=== PATIENT | male | born 1950 | race Hispanic/Latino ===

== ENCOUNTER 2017-05-10 08:29 | Inpatient (IN) | payer MEDICARE, BC ==
[2017-05-10] MEDS ORDERED: Albuterol-Ipratrop 3 mg / 0.5 (3 ml) UD IH STA ×2 (08:47→11:33)
--- NOTE | 2017-05-10 08:47 | ED PDOC ---
Arrival/HPI - General Chief Complaint: Shortness Of Breath Time Seen by Provider: 05/10/17 08:30 Historian: Patient - History of Present Illness Narrative History of Present Illness (Text): 05/10/17 08:42 A 66 year old male, whose past medical history includes COPD on Lasix and hyperlipidemia, presents to the emergency department complaining of shortness of breath for the past 3-4 days. Patient notes associated chest tightness and states his symptoms are exacerbated with exertion. Some coughing intermittent. Patient reports his symptoms feel worse yet similar to his pervious COPD exacerbation. Patient denies any fever, chills, nausea, vomiting, abdominal pain , headache, dizziness or any other complaints. PMD: Dr. Tl Simms Glass Bead Maker: Dr. Rodas Paramedic: Dr. Colunga 05/10/17 09:25 Time/Duration: Other (3-4 days) Symptom Course: Unchanged Quality: Other Context: Home Past Medical History - Provider Review Nursing Documentation Reviewed: Yes - Infectious Disease Hx of Infectious Diseases: None - Tetanus Immunization Tetanus Immunization: Unknown - Cardiac Hx Hypertension: Yes Hx Peripheral Edema: Yes (not at present) - Pulmonary Hx Respiratory Disorders: Yes Hx Chronic Obstructive Pulmonary Disease (COPD): Yes Hx Emphysema: Yes - Neurological Hx Neurological Disorder: Yes Other/Comment: tremors (cause undetermined) - HEENT Hx HEENT Disorder: Yes (chronic allergies) - Renal Hx Renal Disorder: No - Endocrine/Metabolic Hx Endocrine Disorders: Yes Hx Diabetes Mellitus Type 2: Yes (diet controlled) - Hematological/Oncological Hx Blood Disorders: No - Integumentary Hx Dermatological Disorder: Yes (ABRASION LEFT KNEE NOSE FOREHEAD) - Musculoskeletal/Rheumatological Hx Musculoskeletal Disorders: Yes Hx Falls: Yes Hx Fractures: Yes (LEFT TIBIA FIBULA orif right arm) - Gastrointestinal Hx Gastrointestinal Disorders: No - Genitourinary/Gynecological Hx Genitourinary Disorders: No - Psychiatric Hx Psychophysiologic Disorder: No Hx Substance Use: No - Surgical History Hx Open Reduction Internal Fixation: Yes (LEFT TIBIA FIBULA) Hx Tonsillectomy: Yes Other/Comment: pt sts he had surgery to left leg ,arm and right arm. - Anesthesia Hx Anesthesia: Yes Hx Anesthesia Reactions: No Hx Malignant Hyperthermia: No - Suicidal Assessment Feels Threatened In Home Enviroment: No Family/Social History - Physician Review Nursing Documentation Reviewed: Yes Family/Social History: No Known Family HX Smoking Status: Former Smoker Hx Alcohol Use: No Hx Substance Use: No Hx Substance Use Treatment: No Allergies/Home Meds Allergies/Adverse Reactions: Allergies No Known Allergies Allergy (Verified 08/16/16 12:32) Home Medications: Home Meds Medication Instructions Recorded Confirmed Loratadine [Claritin] 10 mg PO DAILY 08/18/16 05/10/17 Albuterol Sulfate [Proair Hfa] 2 puff INH PRN PRN 05/10/17 05/10/17 Ascorbate Calcium/Bioflavonoid 1 tab PO DAILY 05/10/17 05/10/17 [[place]-C 500 mg Tablet] Aspirin [Ecotrin] 81 mg PO DAILY 05/10/17 05/10/17 Atorvastatin [Lipitor] 10 mg PO DAILY 05/10/17 05/10/17 Calcium Carbonate [Caltrate] 600 mg PO DAILY 05/10/17 05/10/17 Cholecalciferol (Vitamin D3) 5,000 unit PO DAILY 05/10/17 05/10/17 [Vitamin D3] Cyanocobalamin [Vitamin B12] 250 mcg PO DAILY 05/10/17 05/10/17 Echinacea Purpurea Aerial 344 mg PO DAILY 05/10/17 05/10/17 [Echinacea] Fluticasone/Vilanterol [Breo 1 each INH DAILY 05/10/17 05/10/17 Ellipta 100-25 Mcg INH] Folic Acid [Folic Acid] 1 mg PO DAILY 05/10/17 05/10/17 Lisinopril/Hydrochlorothiazide 1 tab PO DAILY 05/10/17 05/10/17 [Lisinopril-Hctz 20-25 mg Tab] Metoprolol Succinate [Toprol XL] 50 mg PO DAILY 05/10/17 05/10/17 Multivitamin [Daily Vitamin 1 tab PO DAILY 05/10/17 05/10/17 Formula] Umeclidinium [place] [Incruse 62.5 mcg INH DAILY 05/10/17 05/10/17 Ellipta] Review of Systems - Physician Review All systems were reviewed & negative as marked: Yes - Review of Systems Constitutional: absent: Fevers, Night Sweats Respiratory: SOB. absent: Cough Cardiovascular: Chest Pain (tightness) Gastrointestinal: absent: Abdominal Pain, Nausea, Vomiting Neurological: absent: Headache, Dizziness Physical Exam Vital Signs Reviewed: Yes Vital Signs Temp Pulse Resp BP Pulse Ox 05/10/17 09:48 117 H 29 H 131/62 99 05/10/17 09:11 98 H 30 H 91/58 L 96 05/10/17 09:01 143 H 138/78 05/10/17 08:50 24 99 05/10/17 08:40 98.3 F 106 H 17 138/78 100 05/10/17 08:30 97.7 F 99 H 22 136/78 99 Temperature: Afebrile Blood Pressure: Normal Pulse: Tachycardic Respiratory Rate: Normal Appearance: Positive for: Non-Toxic, Comfortable, Other (Obese male) Pain Distress: None Mental Status: Positive for: Alert and Oriented X 3 - Systems Exam Head: Present: Atraumatic, Normocephalic Pupils: Present: PERRL Extroacular Muscles: Present: EOMI Conjunctiva: Present: Normal Mouth: Present: Moist Mucous Membranes Neck: Present: Normal Range of Motion Respiratory/Chest: Present: Clear to Auscultation, Good Air Exchange. No: Respiratory Distress, Accessory Muscle Use Cardiovascular: Present: Regular Rate and Rhythm, Normal S1, S2. No: Murmurs Abdomen: Present: Normal Bowel Sounds. No: Tenderness, Distention, Peritoneal Signs Back: Present: Normal Inspection Upper Extremity: Present: Normal Inspection. No: Cyanosis, Edema Lower Extremity: Present: Edema, NORMAL PULSES. No: CALF TENDERNESS Neurological: Present: GCS=15, CN II-XII Intact, Speech Normal Skin: Present: Warm, Dry, Pale. No: Rashes Psychiatric: Present: Alert, Oriented x 3, Normal Insight, Normal Concentration Medical Decision Making ED Course and Treatment: 05/10/17 08:42 Impression: A 66 year old male with shortness of breath and associated chest tightness. Differential Diagnosis included but are not limited to: COPD exacerbation vs. CHF exacerbation vs. Anemia Plan: -- Chest xray -- EKG -- Labs -- Duoneb, Lasix and Solumedrol -- Reassess and disposition Progress Notes: EKG shows atrial fibrillation at 141 BPM. Interpreted by me. Report Date : 05/10/2017 09:06:10 Procedure: Chest xray Dictator : Kayden Serna MD IMPRESSION: Poor inspiration with low lung volumes, crowded bronchovascular markings and mild bibasilar atelectasis. 05/10/17 09:11 Repeat EKG EKG Afib at [address] elevations in I, AvL Case discussed with Dr. Bae who received copies of the EKGs pre and post Cardiazem 20mg IV. Patient feels weak and lightheaded. Dr. Bae just arrived to ED and will evaluate patient. He feels as though the EKGs are more pericarditis. 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 Criteria for Code Heart not met but they will consult. Aspirin PO. 05/10/17 09:26 Patient's blood pressure dropped after Cardiazem. Treating with IVF. WBC elevated at 22 with LA elevated. Suspicion of PNA with cough and abnormal CXR. Will treat with Zosyn. Code Sepsis called. 05/10/17 09:51 Patient's blood pressure improved with IVF. He is feeling less lightheaded. HR 109-120 Afib. Dosed Heparin for Afib r/o PE. Discussed case with Dr. Alex Sarmiento who will come to evaluate patient. 05/10/17 10:42 Dr. Alex Sarmiento evaluated patient and agrees to ICU admission. Recommends a repeat CXR, and another dose of Cardiazem 10mg IV. No V/Q for now. - Critical Care Critical Care Minutes: 60 minutes - Lab Interpretations Lab Results: 05/10/17 08:58 05/10/17 08:58 Lab Results 05/10/17 09:44: Magnesium 2.0 05/10/17 09:04: pO2 25 L, VBG pH 7.28 L, VBG pCO2 47.0, VBG HCO3 22.1, VBG Total CO2 23.5, VBG O2 Sat (Calc) 45.6, VBG Base Excess -4.8 L, VBG Potassium 5.3 H, Glucose 289 H, Lactate 3.6 H, FiO2 21.0, Sodium 126.0 L, Chloride 94.0 L , Venous Blood Potassium 5.3 H 05/10/17 08:59: PT 12.3 H, INR 1.14 H, APTT 36.5 H, D-Dimer, Quantitative 1.37 H 05/10/17 08:58: Sodium 131 L, Potassium 5.0, Chloride 92 L, Carbon Dioxide 21, Anion Gap 23 H, BUN 45 H, Creatinine 1.9 H, Est GFR ( Amer) 43, Est GFR ( Non-Af Amer) 35, Random Glucose 270 H, Calcium 10.0, Total Bilirubin 0.7, AST 42 , ALT 20, Alkaline Phosphatase 101, Lactate Dehydrogenase 387, Total Creatine Kinase 28 L, Troponin I < 0.01, NT-Pro-B Natriuret Pep 575 H, Total Protein 8.5 H, Albumin 4.2, Globulin 4.2, Albumin/Globulin Ratio 1.0 L 05/10/17 08:58: WBC 22.0 H D, RBC 4.30, Hgb 12.3 L, Hct 35.7 L, MCV 83.0, MCH 28.6, MCHC 34.5, RDW 14.1, Plt Count 514 H, MPV 10.7, Gran % 77.9 H, Lymph % ( Auto) 10.8 L, Bent % (Auto) 11.0 H, Eos % (Auto) 0.1 L, Baso % (Auto) 0.2, Gran # 17.09 H, Lymph # 2.4, Bent # 2.4 H, Eos # 0.0, Baso # 0.05 05/10/17 08:42: POC Glucose (mg/dL) 276 H I have reviewed the lab results: Yes - RAD Interpretation Radiology Orders: 05/10/17 08:48 CHEST PORTABLE [RAD] Stat - Medication Orders Current Medication Orders: Heparin Sodium/Dextrose (Heparin 25,000 Units/250ml In D5w) 25,000 units in 250 mls @ 20.885 mls/hr IV .[id number] PRN; Protocol; 18 UNITS/KG/HR PRN Reason: ADJUST RATE PER PROTOCOL Last Admin: 05/10/17 10:16 Dose: 20.885 mls/hr eMAR Start Stop Document 05/10/17 10:16 MR (Rec: 05/10/17 10:16 MR [id number]) Intravenous Solution Start Date 05/10/17 Start Time 10:16 MAR aPTT Document 05/10/17 10:16 MR (Rec: 05/10/17 10:16 MR [id number]) aPTT aPTT (secs) 36.5 Discontinued Medications Albuterol/Ipratropium (Duoneb 3 Mg/0.5 Mg (3 Ml) Ud) 3 ml IH STAT STA Stop: 05/10/17 08:48 Last Admin: 05/10/17 09:10 Dose: Aspirin (Aspirin Chewable) 324 mg PO STAT STA Stop: 05/10/17 09:29 Last Admin: 05/10/17 09:57 Dose: 324 mg Diltiazem HCl (Cardizem) 20 mg IVP STAT STA Stop: 05/10/17 08:53 Last Admin: 05/10/17 09:01 Dose: 20 mg IVP Administration Document 05/10/17 09:01 MR (Rec: 05/10/17 09:09 [id number]) Charges for Administration # of IVP Administrations 1 MAR Pulse and Blood Pressure Document 05/10/17 09:01 MR (Rec: 05/10/17 09:09 [id number]) Pulse Pulse Rate (60-90) 143 Blood Pressure Blood Pressure (100/60-150/90) 138/78 Diltiazem HCl (Cardizem) 10 mg IVP STAT STA Stop: 05/10/17 10:41 Furosemide (Lasix) 40 mg IVP STAT STA Stop: 05/10/17 08:48 Last Admin: 05/10/17 09:10 Dose: Heparin Sodium (Porcine) (Heparin) 9,300 units 80 units/kg (9300 units) IV ONCE ONE PRN Reason: Protocol Stop: 05/10/17 09:41 Last Admin: 05/10/17 10:07 Dose: 9,300 units eMAR Start Stop Document 05/10/17 10:07 MR (Rec: 05/10/17 10:08 MR [id number]) Intravenous Solution Start Date 05/10/17 Start Time 10:08 End Date 05/10/17 End time 10:08 Total Infusion Time 0 Piperacillin Sod/Tazobactam Sod (Zosyn 4.5 Gm In Ns 100ml) 4.5 gm in 100 mls @ 200 mls/hr IVPB STAT STA PRN Reason: Protocol Stop: 05/10/17 09:54 Last Admin: 05/10/17 10:03 Dose: 200 mls/hr eMAR Start Stop Document 05/10/17 10:03 MR (Rec: 05/10/17 10:03 MR [id number]) Intravenous Solution Start Date 05/10/17 Start Time 10:03 End Date 05/10/17 End time 10:33 Total Infusion Time 30 Methylprednisolone (Solu-Medrol) 125 mg IVP STAT STA Stop: 05/10/17 08:48 Last Admin: 05/10/17 09:10 Dose: 125 mg IVP Administration Document 05/10/17 09:10 (Rec: 05/10/17 09:10 [id number]) Charges for Administration # of IVP Administrations 1 - Scribe Statement The provider has reviewed the documentation as recorded by the Bertaibwaleska Quintero Provider Scribe Attestation: All medical record entries made by the Scribe were at my direction and personally dictated by me. I have reviewed the chart and agree that the record accurately reflects my personal performance of the history, physical exam, medical decision making, and the department course for this patient. I have also personally directed, reviewed, and agree with the discharge instructions and disposition. Disposition/Present on Arrival - Present on Arrival Any Indicators Present on Arrival: Yes History of DVT/PE: No History of Uncontrolled Diabetes: Yes Urinary Catheter: No History of Decub. Ulcer: No History Surgical Site Infection Following: None - Disposition Have Diagnosis and Disposition been Completed?: Yes Diagnosis: New onset atrial fibrillation, Sepsis, CATE (acute kidney injury), Pneumonia Disposition Time: 10:43 Patient Plan: Admission, ICU Condition: CRITICAL Discharge Instructions (ExitCare): Sepsis (ED) Referrals: Tl Simms MD [Primary Care Provider] - Follow up with primary Forms: [employer] (Wallisian)
[2017-05-10 09:06] LABS: BASO # 0.05 K/mm3 (0.0-2.0); BASO % 0.2 % (0.0-3.0); EOS % 0.1 % (1.5-5.0); GRAN # 17.09 (1.4-6.5); GRAN % 77.9 % (50.0-68.0); HEMATOCRIT 35.7 % (42.0-52.0); LYMPH # 2.4 (1.2-3.4); LYMPH % 10.8 % (22.0-35.0); MEAN CORPUSCULAR HEMOGLOBIN 28.6 pg (25.0-35.0); MEAN CORPUSCULAR HGB CONC 34.5 g/dl (31.0-37.0); MEAN PLATELET VOLUME 10.7 fl (7.0-11.0); MONO # 2.4 (0.1-0.6); RED CELL DISTRIBUTION WIDTH 14.1 % (11.5-14.5)
[2017-05-10 09:07] LABS: VENOUS BLOOD GAS BASE EXCESS -4.8 mmol/L (0.0-2.0); VENOUS BLOOD PH 7.28 (7.32-7.43)
--- NOTE | 2017-05-10 09:07 | RAD ---
HISTORY: Chest pain and SOB. COMPARISON: No prior. FINDINGS: LUNGS: Poor inspiration with low lung volumes, crowded bronchovascular markings and mild bibasilar atelectasis. PLEURA: No significant pleural effusion identified, no pneumothorax apparent. CARDIOVASCULAR: Cardiomegaly. OSSEOUS STRUCTURES: No significant abnormalities. VISUALIZED UPPER ABDOMEN: Normal. OTHER FINDINGS: None. IMPRESSION: Poor inspiration with low lung volumes, crowded bronchovascular markings and mild bibasilar atelectasis.
[2017-05-10 09:16] LABS: ALKALINE PHOSPHATASE 101 U/L (38-126); ALT/SGPT 20 U/L (7-56); AST/SGOT 42 U/L (17-59); BILIRUBIN,TOTAL 0.7 mg/dL (0.2-1.3); BLOOD UREA NITROGEN 45 mg/dL (7-21); CARBON DIOXIDE 21 mmol/L (21-33); CHLORIDE 92 mmol/L (98-107); GFR AFRICAN-AMERICAN 43; GLUCOSE,RANDOM 270 mg/dL (70-110); SODIUM 131 mmol/L (132-148); TOTAL PROTEIN 8.5 g/dL (5.8-8.3)
[2017-05-10] MEDS ORDERED: Piperacill/Tazo 4.5gm in NS 100 ML IVPB STA (09:21)
[2017-05-10 09:22] LABS: INR 1.14 (0.93-1.08); PARTIAL THROMBOPLASTIN TIME 36.5 Seconds (23.7-30.8)
[2017-05-10] MEDS ORDERED: Piperacill/Tazo 4.5gm in NS 4.5 GM/100 ML BAG IVPB STA (09:25)
[2017-05-10 09:29] LABS: TROPONIN I < 0.01 ng/mL
[2017-05-10 09:34] LABS: D DIMER 1.37 mg/L FEU (0-0.50)
[2017-05-10] MEDS: Heparin 25,000units in D5W 25,000 UNITS/250 ML BAG IV PRN ×2 (10:16→20:19)
[2017-05-10] MEDS ORDERED: diltiaZEM IVPB 100mg in NS 100 ML IV PRN (11:28)
--- NOTE | 2017-05-10 12:17 | CON ---
REASON FOR CONSULTATION: Code STEMI evaluation. I got a call from ER physician, Dr. Chinedu Arthur, that the patient's EKG came in with shortness of breath of possible code STEMI evaluation. I went to see the patient. EKG is not consistent with acute code STEMI. On further interrogation, it was found that the patient had a cardiac catheterization, done 2 months ago, by Dr. Durham and being followed with him and medical treatment recommended. On further intervention, the patient had mild shortness of breath for 3 to 4 days. No definite chest pain at this time, so the code STEMI was canceled. On further intervention found that the patient had elevated WBC of 23,000 and chest x-ray is consistent with a possible right lower lobe pneumonia and left pleural effusion. Case discussed with Dr. Durham in depth of the EKG and we will transfer care to Dr. Durham. Further recommendation per Dr. Durham. We will sign off for now. Discussed with the ER physician. Discussed with the patient's family. Discussed with the patient. Dayana Bae MD
--- NOTE | 2017-05-10 13:33 | CP.CCUPN ---
CCU Subjective - Physician Review Events Since Last Encounter (Free Text): 05/10/17 13:24 66 y/o M w/ COPD who presented to the ER with SOB, fevers, cough x 3-4 days . Found to have a rapid HR > 130 presumed to be A.Fib. Pt was given, abx, Lasix and a nebulizer( albuterol) and felt better. After Cardizem 20mg his HR returned to 90, but BP dropped and his HR returned back to 120's-140's. CCU Objective - Vital Signs / Intake & Output Vital Signs (Last 4 hours): Vital Signs Pulse Resp BP Pulse Ox 05/10/17 13:04 133 H 33 H 108/73 96 05/10/17 11:46 139 H 24 101/74 98 05/10/17 11:41 143 H 102/63 05/10/17 11:08 143 H 116/85 - Physical Exam Head: Positive for: Atraumatic, Normocephalic Pupils: Positive for: PERRL Extroacular Muscles: Positive for: EOMI Conjunctiva: Positive for: Normal Mouth: Positive for: Moist Mucous Membranes Pharnyx: Positive for: Normal Neck: Positive for: Normal Range of Motion Respiratory/Chest: Positive for: Clear to Auscultation, Good Air Exchange, Rhonchi. Negative for: Respiratory Distress, Accessory Muscle Use Cardiovascular: Positive for: Regular Rate and Rhythm, Irregular Rhythm. Negative for: Murmurs Abdomen: Positive for: Normal Bowel Sounds. Negative for: Tenderness, Distention, Peritoneal Signs Genitourinary Male: Positive for: Normal External Genitalia Back: Positive for: Normal Inspection Upper Extremity: Positive for: Normal Inspection. Negative for: Cyanosis, Edema Lower Extremity: Positive for: Edema, NORMAL PULSES. Negative for: CALF TENDERNESS Neurological: Positive for: GCS=15, CN II-XII Intact, Speech Normal Skin: Positive for: Warm, Dry, Pale. Negative for: Rashes Psychiatric: Positive for: Alert, Oriented x 3, Normal Insight, Normal Concentration - Medications Active Medications: Active Medications Generic Name Dose Route Start Last Admin Trade Name Freq PRN Reason Stop Dose Admin Heparin Sodium/Dextrose 25,000 units in 250 mls @ 20.885 mls/hr 05/10/17 09: 40 05/10/17 10:16 Heparin 25,000 Units/250ml In D5w IV 20.885 mls/hr .[id number] PRN Administration ADJUST RATE PER PROTOCOL Protocol 18 UNITS/KG/HR diltiaZEM IVPB 100mg in NS 100 mls @ 5 mls/hr 05/10/17 11:28 05/10/17 11:41 Cardizem 100mg In Ns IV 5 mg/hr .Q20H PRN 5 mls/hr TITRATE PER MD ORDER Administration Protocol 5 MG/HR - Patient Studies Fingerstick Blood Sugar Results: 276 Review of Systems - EENT Eyes: UNREMARKABLE Ears: UNREMARKABLE Nose/Mouth/Throat: UNREMARKABLE - Cardiovascular Cardiovascular: UNREMARKABLE - Respiratory Respiratory: UNREMARKABLE - Gastrointestinal Gastrointestinal: UNREMARKABLE - Musculoskeletal Musculoskeletal: UNREMARKABLE - Integumentary Integumentary: UNREMARKABLE - Neurological Neurological: UNREMARKABLE - Psychiatric Psychiatric: UNREMARKABLE - Endocrine Endocrine: UNREMARKABLE Critical Care Progress Note - Ventilator Checklist Daily Spontaneous Breathing Trial: Yes PUD Prophalyxis: Yes DVT Prophylaxis: Yes Oral Care with Chlorhexidine Gluconate {CHG}: Yes Assessment/Plan - Assessment and Plan (Free Text) Assessment: 66 y/o M w/ Rapid A.Fib new onset in the setting of Sepsis from PNA. A.Fib likely from new infection and LLL large infiltrate on CXR. Rate control w/ Cardizem drip to keep HR < 130. Anticoagulation started w/ Heparin drip. Cardiology following. Troponin q 8 hrs ECHO needed , no hx of CHF. Blood cx and urine cx/ sputum cx. Trend lactate in 4 hrs Oxygen support to keep o2 sat > 92% CPOD hx- continue w/ Duonebs, steroids and oxygen. Venous dopplers ordered. dvtp cc time 65 min T
[2017-05-10 13:35] LABS: VENOUS BLOOD GAS BASE EXCESS -5.2 mmol/L (0.0-2.0); VENOUS BLOOD PH 7.34 (7.32-7.43)
[2017-05-10] MEDS ORDERED: Albuterol-Ipratrop 3 mg / 0.5 (3 ml) UD IH PRN (13:35)
--- NOTE | 2017-05-10 14:11 | RAD ---
HISTORY: repeat please COMPARISON: Upper FINDINGS: LUNGS: Poor inspiration with low lung volumes, crowded bronchovascular markings and bibasilar atelectasis left greater than right. . Developing lower lobe infiltrates not excluded. Left CP angle is not well delineated likely due to large body habitus and the aforementioned technical factors however possibility of a small effusion cannot be excluded. PLEURA: As above. No pneumothorax apparent. CARDIOVASCULAR: Cardiomegaly OSSEOUS STRUCTURES: No significant abnormalities. VISUALIZED UPPER ABDOMEN: Normal. OTHER FINDINGS: None. IMPRESSION: Poor inspiration with low lung volumes, crowded bronchovascular markings and bibasilar atelectasis left greater than right. . Developing lower lobe infiltrates not excluded. Left CP angle is not well delineated likely due to large body habitus and the aforementioned technical factors however possibility of a small effusion cannot be excluded.
--- NOTE | 2017-05-10 14:44 | CON ---
DATE: 05/10/2017 REQUESTING PHYSICIAN: Dr. Simms. REASON FOR CONSULTATION: Atrial fibrillation, dyspnea. HISTORY OF PRESENT ILLNESS: This is a 66-year-old man known to me with a history of coronary artery disease, COPD, and hyperlipidemia, who presented to the emergency room with complaints of chest discomfort, cough, and dyspnea. Initially, electrocardiogram was suspicious for myocardial infarction and consideration was given to possible emergency catheterization. The patient had undergone catheterization early this year and he was found to have an occluded RCA with mild LAD and circumflex system disease. Chest x-ray report showed evidence of pneumonia and he has been given antibiotics. He was noted to be in atrial fibrillation with rapid ventricular response and started on IV diltiazem. He states that he has had a symptoms of bronchitis for more than a week. He denies any fever. PAST MEDICAL HISTORY: Notable for the problems mentioned above. He has a longstanding history of obesity, but has been trying to lose weight for sometime. He has a history of glucose intolerance. PAST SURGICAL HISTORY: Prior surgery for a left tibular/fibular fracture as well as forearm fracture. MEDICATIONS AT HOME: Include albuterol, Ecotrin, Lipitor, Caltrate, Prialt, Lisinopril, hydrochlorothiazide, metoprolol 50 mg daily, and Incruse Ellipta. ALLERGIES: NONE. SOCIAL HISTORY: He is a former smoker. He denies alcohol use. 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 FAMILY HISTORY: Both parents are from age related illness. REVIEW OF SYSTEMS: A 10-point reviewed systems is notable mainly for problems as mentioned above. PHYSICAL EXAMINATION: GENERAL: He is a overweight middle-aged man. VITAL SIGNS: His blood pressure is 130/60 with a pulse of 150, respirations are 26, temperature 99.7. HEENT: Normocephalic and atraumatic. NECK: Supple. No JVD noted. CHEST: Bilateral coarse rhonchi are heard. Rales noted on the left. HEART: Reveals PMI displaced laterally with a systolic murmur present at the left sternal border. The rhythm is irregularly regular. ABDOMEN: Soft, obese, nontender. Normoactive bowel sounds. EXTREMITIES: No clubbing, cyanosis, or edema. SKIN: Warm and dry. PSYCHIATRIC: Normal mood and affect. NEUROLOGIC: Alert and oriented x3. No gross motor or sensory deficits appreciable. DIAGNOSTIC DATA: White count is 22.0, hemoglobin and hematocrit 12.3 and 35.7, with a platelet count of 514,000. D-dimer was 1.37, PT and PTT 12.3 and 36.5. Venous blood gas showed a pH of 7.28, PCO2 of 47, PO2 is 28. Lactic level is 3.6. Sodium 131, potassium 5.0, BUN and creatinine 45 and 1.9, glucose 276. Troponin is negative. CK is 28, BNP is 575. Chest x-ray reveals poor inspiratory effort with a large cardiac silhouette, a left basilar infiltrate does not be excluded. Electrocardiogram reveals atrial fibrillation with rapid ventricular response and secondary ST-T changes. Borderline ST-elevations were noted in the anterolateral leads. IMPRESSION: 1. Atrial fibrillation with rapid ventricular response, likely secondary to acute illness and stress. 2. Probable left lower lobe pneumonia. 3. Known coronary artery disease with no clearance of acute arterial ischemia. 4. Diabetes mellitus. 5. Rest of the problems as noted. RECOMMENDATIONS: The patient will be admitted to the ICU for observation. IV heparin and IV diltiazem have been added for anticoagulation and atrial fibrillation rate control respectively. An echocardiogram will be ordered and reviewed. Broad spectrum antibiotics have been initiated. Further recommendations will be made based on his clinical course and any responsive of interventions. Thanks for the consultation. We will be happy to follow as needed. Kaleb Durham MD
[2017-05-10] MEDS ORDERED: Amiodarone 150 mg/D5W 100 ml 150 MG/100 ML BAG IVPB ONE (15:13)
--- NOTE | 2017-05-10 16:21 | CARD ---
APPROVED REPORT EXAM: Two-dimensional and M-mode echocardiogram with Doppler and color Doppler. INDICATION Atrial Fibrillation 2D DIMENSIONS Left Atrium (2D)3.8 (1.6-4.0cm)IVSd1.3 (0.7-1.1cm) LVDd3.4 (3.9-5.9cm)PWd1.3 (0.7-1.1cm) LVDs2.4 (2.5-4.0cm)FS (%) 28.2 % LVEF (%)55.6 (>50%) M-Mode DIMENSIONS Aortic Root3.40 (2.2-3.7cm)Aortic Cusp Exc.1.70 (1.5-2.0cm) Aortic Valve AoV Peak [id number]/Claire Peak GR.7mmHg Mitral Valve E/A ratio0.0 TDI E/Lateral E'0.0E/Medial E'0.0 Pulmonary Valve PV Peak Pnegonyx887.0cm/sPV Peak Grad.6mmHg Tricuspid Valve TR Peak [id number] [id number] Peak Gr.26mmHg [id number] LEFT VENTRICLE The left ventricle is normal size. There is mild concentric left ventricular hypertrophy. The left ventricular function is normal. The left ventricular ejection fraction is within the normal range. There is normal LV segmental wall motion. RIGHT VENTRICLE The right ventricle is normal size. The right ventricular systolic function is normal. ATRIA The left atrium size is normal. The right atrium size is normal. The interatrial septum is intact with no evidence for an atrial septal defect. AORTIC VALVE The aortic valve is mildly sclerotic. No aortic regurgitation is present. There is no aortic valvular stenosis. MITRAL VALVE The mitral valve is normal in structure. There is no mitral valve regurgitation noted. TRICUSPID VALVE The tricuspid valve is normal in structure. There is mild tricuspid regurgitation. PULMONIC VALVE The pulmonary valve is normal in structure. GREAT VESSELS The aortic root is normal in size. The IVC is normal in size and collapses >50% with inspiration. PERICARDIAL EFFUSION There is no pleural effusion. There are no echocardiographic indications of cardiac tamponade. There is a moderate circumferential pericardial effusion. <Conclusion> Mild concentric LVH. Normal LV size and systolic function. Normal chamber size. Mild TR. Moderate pericardial effusion with no evidence of tamponade.
[2017-05-10] MEDS: diltiaZEM IVPB 100mg in NS 100 ML IV PRN ×2 (17:00→20:18)
[2017-05-10] MEDS: Insulin Lispro (humaLOG) LOW Coverage SC SCH ×2 (17:02→22:19)
[2017-05-10] MEDS: Piperacillin/Tazobact 3.375 gm 100 ML IVPB SCH ×2 (17:02→23:37)
[2017-05-10 18:25] VITALS: BMI 42.4
[2017-05-10] MEDS ORDERED: Pneumococcal 23-Valent Vaccine IM ONE (18:25)
--- NOTE | 2017-05-10 18:44 | US ---
HISTORY: Leg pain and swelling. Evaluate for DVT PHYSICIAN(S): David Kearney MD. TECHNIQUE: Duplex sonography and color-flow Doppler with graded compression were used to evaluate the deep venous systems of both lower extremities. The exam is limited by body habitus and edema. The tibial veins are not well seen. FINDINGS: The visualized deep venous systems of both lower extremities are sonographically normal and compressible. Normal wave forms and augmentation are seen. There is no sonographic evidence for deep venous thrombosis in the visualized segments of both lower extremities. IMPRESSION: No sonographic evidence for deep venous thrombosis in the visualized segments of both lower extremities.
--- NOTE | 2017-05-10 18:48 | CARD ---
APPROVED REPORT EKG Measurement Heart [id number] <Conclusion> Atrial fibrillation Low voltage QRS Cannot rule out Anterior infarct, age undetermined Lateral injury pattern ACUTE [place] Abnormal ECG
--- NOTE | 2017-05-10 18:49 | CARD ---
APPROVED REPORT EKG Measurement Heart [id number] <Conclusion> Atrial fibrillation with rapid ventricular response Low voltage QRS Anterolateral infarct, possibly acute ACUTE RI Abnormal ECG
--- NOTE | 2017-05-11 01:15 | HP ---
DATE: LOCATION: The patient is currently in intensive care unit. HISTORY OF PRESENT ILLNESS: The patient presented to the emergency room complaining of shortness of breath for the past 3 to 4 days, which has been progressively increasing. The patient has a past medical history of COPD and hyperlipidemia. He also complains of chest tightness and states that his symptoms are exacerbated with exertion. There is some intermittent coughing. The patient states that his symptoms feel worse than previous COPD exacerbation. He denies any fever or chills. No nausea, vomiting, abdominal pain, and/or dizziness. During the admission, the patient was seen by Dr. Bae due to the chest pain. Due to the fact of the patient's EKG came he had shortness of breath STEMI evaluation. Dr. Bae determined that the EKG was not consistent with an acute STEMI. The patient did have a cardiac cath [address] Durham and medical treatment was recommended by Dr. Durham. PAST MEDICAL HISTORY: As previously stated. ALLERGIES: NO KNOWN ALLERGIES. SOCIAL HISTORY: The patient does not use alcoholic beverages or substances. He is a former smoker. FAMILY HISTORY: Essentially noncontributory. PHYSICAL EXAMINATION: VITAL SIGNS: The patient had a heart rate of approximately 150, in the emergency room, he was given Cardizem and this did slow down to the 120s. Temperature is 99.7, blood pressure 107/74, and respiratory rate of 29, and O2 saturation is 99% on room air. HEENT: PERRLA, EOMI. NECK: Supple with full range of motion. There is no jugular venous distention. LUNGS: Diminished breath sounds bilaterally, no wheezes are appreciated. HEART: Regular rate and rhythm. No murmurs, rubs, or gallops. ABDOMEN: Soft. It is nontender. Bowel sounds are normoactive. EXTREMITIES: Show no deformities, no edema. There is a full range of motion. NEUROLOGIC: There is no focal motor deficits. LABORATORY DATA: WBC is 22.0, hemoglobin and hematocrit 12.3 and 35.7, 77.9% granulocytes. In the emergency room in spite of a BUN of 45, the patient did have a D-dimer, which was slightly elevated. He also had an ultrasound of his extremities, which was normal. BUN of 45, creatinine of 1.9. Random glucose of 270. Troponin-I was less than 0.1. BNP was 575. The patient, as previously was noted, was seen by Dr. Bae who said there was no reason for acute intervention. 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 Currently, the problem is new onset of atrial fibrillation, questionable sepsis, free renal azotemia, and pneumonia. Tl Simms MD
[2017-05-11] MEDS: diltiaZEM IVPB 100mg in NS 100 ML IV PRN (05:03)
[2017-05-11 06:59] LABS: BASO # 0.01 K/mm3 (0.0-2.0); GRAN # 20.64 (1.4-6.5); GRAN % 84.2 % (50.0-68.0); HEMATOCRIT 32.7 % (42.0-52.0); LYMPH # 2.2 (1.2-3.4); LYMPH % 9.1 % (22.0-35.0); MEAN CELL VOLUME 82.4 fl (80.0-105.0); MEAN CORPUSCULAR HGB CONC 33.9 g/dl (31.0-37.0); MEAN PLATELET VOLUME 10.5 fl (7.0-11.0); MONO # 1.6 (0.1-0.6); MONO % 6.7 % (1.0-6.0); WHITE BLOOD COUNT 24.5 10^3/ul (4.5-11.0)
[2017-05-11 07:25] LABS: ALKALINE PHOSPHATASE 108 U/L (38-126); ALT/SGPT 19 U/L (7-56); AST/SGOT 39 U/L (17-59); BILIRUBIN,TOTAL 0.3 mg/dL (0.2-1.3); BLOOD UREA NITROGEN 63 mg/dL (7-21); CALCIUM 9.3 mg/dL (8.4-10.5); CARBON DIOXIDE 22 mmol/L (21-33); CHLORIDE 96 mmol/L (98-107); CHOLESTEROL 113 mg/dL (130-200); GFR AFRICAN-AMERICAN > 60; MAGNESIUM 2.1 mg/dL (1.7-2.2); PHOSPHOROUS 3.8 mg/dL (2.5-4.5); SODIUM 134 mmol/L (132-148); TOTAL PROTEIN 7.5 g/dL (5.8-8.3)
[2017-05-11 07:39] LABS: GLUCOSE,RANDOM 305 mg/dL (70-110)
[2017-05-11 07:40] LABS: T4 13.7 ug/dL (5.5-11.0)
[2017-05-11 07:53] LABS: THYROID STIMULATING HORMONE < 0.02 mIU/mL (0.46-4.68)
[2017-05-11] MEDS: Insulin Lispro (HUMAlog) HIGH Coverage SC SCH ×4 (08:12→21:55)
--- NOTE | 2017-05-11 08:21 | CP.CCUPN ---
<SARAH BETH BURRIS - Last Filed: 05/11/17 11:19> CCU Subjective - Physician Review Subjective (Free Text): 05/11/17 08:13 Patient seen and assessed at bedside. Patient reports that his previous shortness of breath has improved "quite a bit". He reports only being short of breath during bathing when he was lying flat on his back. He denies fever, chills, headache, changes in his vision, dysphagia, chest pain, palpitations, shortness of breath, cough, abdominal pain, N/V, diarrhea, burning with urination, or any numbness/tingling/weakness of any extremity. CCU Objective - Vital Signs / Intake & Output Vital Signs (Last 4 hours): Vital Signs Pulse Resp BP Pulse Ox 05/11/17 05:49 104 H 05/11/17 05:40 99 H 25 H 95 05/11/17 05:30 116 H 05/11/17 05:26 120 H 26 H 122/80 05/11/17 05:20 135 H 31 H 05/11/17 05:10 92 H 18 95 05/11/17 05:00 92 H 21 131/64 96 05/11/17 04:50 89 22 96 05/11/17 04:40 102 H 22 96 05/11/17 04:30 94 H 18 96 05/11/17 04:20 92 H 19 96 Intake and Output (Last 8hrs): Intake & Output 05/10/17 05/11/17 05/11/17 22:59 06:59 14:59 Intake Total 365 705 Output Total 650 Balance 365 55 Weight 255 lb 255 lb Intake: IV 115 555 Left Forearm 440 Oral 250 150 Output: Urine 650 Urine, Voided 650 Other: Voiding Method Toilet # Voids Urine, Voided 2 # Bowel Movements 0 - Physical Exam Head: Positive for: Atraumatic, Normocephalic Pupils: Positive for: PERRL Extroacular Muscles: Positive for: EOMI Conjunctiva: Positive for: Normal Mouth: Positive for: Moist Mucous Membranes Pharnyx: Positive for: Normal Neck: Positive for: Normal Range of Motion, Trachea Midline. Negative for: JVD Respiratory/Chest: Positive for: Good Air Exchange, Rhonchi (Lower lobes R>L). Negative for: Clear to Auscultation, Respiratory Distress, Accessory Muscle Use , Decreased Breath Sounds, Tachypneic Cardiovascular: Positive for: Irregular Rhythm, Tachycardic. Negative for: Regular Rate and Rhythm, Murmurs, Bradycardic, Rub, Muffled Abdomen: Positive for: Normal Bowel Sounds. Negative for: Tenderness, Distention, Peritoneal Signs Upper Extremity: Positive for: Normal Inspection. Negative for: Cyanosis, Edema Lower Extremity: Positive for: Edema (Trace pitting edema on RLE), NORMAL PULSES. Negative for: CALF TENDERNESS Neurological: Positive for: GCS=15, CN II-XII Intact, Speech Normal Skin: Positive for: Warm, Dry, Pale. Negative for: Rashes Psychiatric: Positive for: Alert, Oriented x 3, Normal Insight, Normal Concentration - Medications Active Medications: Active Medications Generic Name Dose Route Start Last Admin Trade Name Freq PRN Reason Stop Dose Admin Albuterol/Ipratropium 3 ml 05/10/17 13:35 Duoneb 3 Mg/0.5 Mg (3 Ml) Ud IH Q4 PRN Shortness of Breath Aspirin 81 mg 05/11/17 10:00 Ecotrin PO DAILY [facility] Atorvastatin Calcium 10 mg 05/11/17 10:00 Lipitor PO DAILY [facility] Famotidine 20 mg 05/10/17 22:00 05/10/17 22:03 Pepcid PO 20 mg 1000,2200 [facility] Administration Heparin Sodium/Dextrose 25,000 units in 250 mls @ 20.885 mls/hr 05/10/17 09: 40 05/10/17 22:30 Heparin 25,000 Units/250ml In D5w IV 15 units/kg/hr .[id number] PRN 17.404 mls/hr ADJUST RATE PER PROTOCOL Titration Protocol 18 UNITS/KG/HR diltiaZEM IVPB 100mg in NS 100 mls @ 5 mls/hr 05/10/17 16:18 05/11/17 05:47 Cardizem 100mg In Ns IV 10 mg/hr .Q20H PRN 10 mls/hr TITRATE PER MD ORDER Titration Protocol 5 MG/HR Insulin Human Lispro 0 units 05/11/17 07:30 Humalog High SC ACHS [facility] Protocol - Patient Studies Lab Studies: Lab Studies 05/11/17 05/11/17 05/11/17 Range/Units 05:30 05:30 05:30 WBC 24.5 H (4.5-11.0) 10^3/ul RBC 3.97 (3.5-6.1) 10^6/uL Hgb 11.1 L (14.0-18.0) g/dL Hct 32.7 L (42.0-52.0) % MCV 82.4 (80.0-105.0) fl MCH 28.0 (25.0-35.0) pg MCHC 33.9 (31.0-37.0) g/dl RDW 14.0 (11.5-14.5) % Plt Count 480 H (120.0-450.0) 10^3/uL MPV 10.5 (7.0-11.0) fl Gran % 84.2 H (50.0-68.0) % Lymph % (Auto) 9.1 L (22.0-35.0) % [place] % (Auto) 6.7 H (1.0-6.0) % Eos % (Auto) 0.0 L (1.5-5.0) % Baso % (Auto) 0.0 (0.0-3.0) % Gran # 20.64 H (1.4-6.5) Lymph # 2.2 (1.2-3.4) [place] # 1.6 H (0.1-0.6) Eos # 0.0 (0.0-0.7) Baso # 0.01 (0.0-2.0) K/mm3 APTT 69.6 H (23.7-30.8) Seconds pO2 (30-55) mm/Hg VBG pH (7.32-7.43) VBG pCO2 (40-60) VBG HCO3 (21-28) mmol/l VBG Total CO2 (22-28) mmol.L VBG O2 Sat (Calc) (40-65) % VBG Base Excess (0.0-2.0) mmol/L VBG Potassium (3.6-5.2) mmol/L Sodium (132-148) mmol/L Chloride (98-107) mmol/L Glucose (75-110) mg/dl Lactate (0.7-2.1) mmol/L FiO2 % Potassium (3.6-5.0) mmol/L Carbon Dioxide (21-33) mmol/L Anion Gap (10-20) BUN (7-21) mg/dL Creatinine (0.5-1.4) mg/dL Est GFR ( Amer) Est GFR (Non-Af Amer) POC Glucose (mg/dL) (65-110) mg/dL Random Glucose (70-110) mg/dL Calcium (8.4-10.5) mg/dL Phosphorus (2.5-4.5) mg/dL Magnesium (1.7-2.2) mg/dL Total Bilirubin (0.2-1.3) mg/dL AST (17-59) U/L ALT (7-56) U/L Alkaline Phosphatase (38-126) U/L Total Protein (5.8-8.3) g/dL Albumin (3.0-4.8) g/dL Globulin gm/dL Albumin/Globulin Ratio (1.1-1.8) Triglycerides (35-160) mg/dL Cholesterol (130-200) mg/dL LDL Cholesterol Direct (0-129) mg/dL HDL Cholesterol (29-60) mg/dL Thyroxine (T4) 13.7 H (5.5-11.0) ug/dL TSH 3rd Generation < 0.02 L (0.46-4.68) mIU/mL Venous Blood Potassium (3.6-5.2) mmol/L 05/11/17 05/10/17 05/10/17 Range/Units 05:30 22:15 20:06 WBC (4.5-11.0) 10^3/ul RBC (3.5-6.1) 10^6/uL Hgb (14.0-18.0) g/dL Hct (42.0-52.0) % MCV (80.0-105.0) fl MCH (25.0-35.0) pg MCHC (31.0-37.0) g/dl RDW (11.5-14.5) % Plt Count (120.0-450.0) 10^3/uL MPV (7.0-11.0) fl Gran % (50.0-68.0) % Lymph % (Auto) (22.0-35.0) % [place] % (Auto) (1.0-6.0) % Eos % (Auto) (1.5-5.0) % Baso % (Auto) (0.0-3.0) % Gran # (1.4-6.5) Lymph # (1.2-3.4) [place] # (0.1-0.6) Eos # (0.0-0.7) Baso # (0.0-2.0) K/mm3 APTT > 180.0 H* (23.7-30.8) Seconds pO2 (30-55) mm/Hg VBG pH (7.32-7.43) VBG pCO2 (40-60) VBG HCO3 (21-28) mmol/l VBG Total CO2 (22-28) mmol.L VBG O2 Sat (Calc) (40-65) % VBG Base Excess (0.0-2.0) mmol/L VBG Potassium (3.6-5.2) mmol/L Sodium 134 (132-148) mmol/L Chloride 96 L (98-107) mmol/L Glucose (75-110) mg/dl Lactate (0.7-2.1) mmol/L FiO2 % Potassium 5.0 (3.6-5.0) mmol/L Carbon Dioxide 22 (21-33) mmol/L Anion Gap 21 H (10-20) BUN 63 H (7-21) mg/dL Creatinine 1.3 (0.5-1.4) mg/dL Est GFR ( Amer) > 60 Est GFR (Non-Af Amer) 55 POC Glucose (mg/dL) 392 H (65-110) mg/dL Random Glucose 305 H* (70-110) mg/dL Calcium 9.3 (8.4-10.5) mg/dL Phosphorus 3.8 (2.5-4.5) mg/dL Magnesium 2.1 (1.7-2.2) mg/dL Total Bilirubin 0.3 (0.2-1.3) mg/dL AST 39 (17-59) U/L ALT 19 (7-56) U/L Alkaline Phosphatase 108 (38-126) U/L Total Protein 7.5 (5.8-8.3) g/dL Albumin 3.7 (3.0-4.8) g/dL Globulin 3.8 gm/dL Albumin/Globulin Ratio 1.0 L (1.1-1.8) Triglycerides 95 (35-160) mg/dL Cholesterol 113 L (130-200) mg/dL LDL Cholesterol Direct 48 (0-129) mg/dL HDL Cholesterol 35 (29-60) mg/dL Thyroxine (T4) (5.5-11.0) ug/dL TSH 3rd Generation (0.46-4.68) mIU/mL Venous Blood Potassium (3.6-5.2) mmol/L 05/10/17 05/10/17 05/10/17 Range/Units 20:06 15:11 13:30 WBC (4.5-11.0) 10^3/ul RBC (3.5-6.1) 10^6/uL Hgb (14.0-18.0) g/dL Hct (42.0-52.0) % MCV (80.0-105.0) fl MCH (25.0-35.0) pg MCHC (31.0-37.0) g/dl RDW (11.5-14.5) % Plt Count (120.0-450.0) 10^3/uL MPV (7.0-11.0) fl Gran % (50.0-68.0) % Lymph % (Auto) (22.0-35.0) % [place] % (Auto) (1.0-6.0) % Eos % (Auto) (1.5-5.0) % Baso % (Auto) (0.0-3.0) % Gran # (1.4-6.5) Lymph # (1.2-3.4) [place] # (0.1-0.6) Eos # (0.0-0.7) Baso # (0.0-2.0) K/mm3 APTT (23.7-30.8) Seconds pO2 51 62 H (30-55) mm/Hg VBG pH 7.40 7.34 (7.32-7.43) VBG pCO2 32.0 L 37.0 L (40-60) VBG HCO3 19.8 L 20.0 L (21-28) mmol/l VBG Total CO2 20.8 L 21.1 L (22-28) mmol.L VBG O2 Sat (Calc) 91.4 H 93.5 H (40-65) % VBG Base Excess -4.0 L -5.2 L (0.0-2.0) mmol/L VBG Potassium 4.7 5.3 H (3.6-5.2) mmol/L Sodium 126.0 L 127.0 L (132-148) mmol/L Chloride 95.0 L 95.0 L (98-107) mmol/L Glucose 438 H* D 351 H (75-110) mg/dl Lactate 1.6 2.1 (0.7-2.1) mmol/L FiO2 21.0 21.0 % Potassium (3.6-5.0) mmol/L Carbon Dioxide (21-33) mmol/L Anion Gap (10-20) BUN (7-21) mg/dL Creatinine (0.5-1.4) mg/dL Est GFR ( Amer) Est GFR (Non-Af Amer) POC Glucose (mg/dL) 374 H (65-110) mg/dL Random Glucose (70-110) mg/dL Calcium (8.4-10.5) mg/dL Phosphorus (2.5-4.5) mg/dL Magnesium (1.7-2.2) mg/dL Total Bilirubin (0.2-1.3) mg/dL AST (17-59) U/L ALT (7-56) U/L Alkaline Phosphatase (38-126) U/L Total Protein (5.8-8.3) g/dL Albumin (3.0-4.8) g/dL Globulin gm/dL Albumin/Globulin Ratio (1.1-1.8) Triglycerides (35-160) mg/dL Cholesterol (130-200) mg/dL LDL Cholesterol Direct (0-129) mg/dL HDL Cholesterol (29-60) mg/dL Thyroxine (T4) (5.5-11.0) ug/dL TSH 3rd Generation (0.46-4.68) mIU/mL Venous Blood Potassium 4.7 5.3 H (3.6-5.2) mmol/L Laboratory Results - last 24 hr 05/10/17 05/10/17 05/10/17 13:30 15:11 20:06 WBC RBC Hgb Hct MCV MCH MCHC RDW Plt Count MPV Gran % Lymph % (Auto) [place] % (Auto) Eos % (Auto) Baso % (Auto) Gran # Lymph # [place] # Eos # Baso # APTT pO2 62 H 51 VBG pH 7.34 7.40 VBG pCO2 37.0 L 32.0 L VBG HCO3 20.0 L 19.8 L VBG Total CO2 21.1 L 20.8 L VBG O2 Sat (Calc) 93.5 H 91.4 H VBG Base Excess -5.2 L -4.0 L VBG Potassium 5.3 H 4.7 Sodium 127.0 L 126.0 L Chloride 95.0 L 95.0 L Glucose 351 H 438 H* D Lactate 2.1 1.6 FiO2 21.0 21.0 Potassium Carbon Dioxide Anion Gap BUN Creatinine Est GFR ( Amer) Est GFR (Non-Af Amer) POC Glucose (mg/dL) 374 H Random Glucose Calcium Phosphorus Magnesium Total Bilirubin AST ALT Alkaline Phosphatase Total Protein Albumin Globulin Albumin/Globulin Ratio Triglycerides Cholesterol LDL Cholesterol Direct HDL Cholesterol Thyroxine (T4) TSH 3rd Generation Venous Blood Potassium 5.3 H 4.7 05/10/17 05/10/17 05/11/17 20:06 22:15 05:30 WBC RBC Hgb Hct MCV MCH MCHC RDW Plt Count MPV Gran % Lymph % (Auto) [place] % (Auto) Eos % (Auto) Baso % (Auto) Gran # Lymph # [place] # Eos # Baso # APTT > 180.0 H* pO2 VBG pH VBG pCO2 VBG HCO3 VBG Total CO2 VBG O2 Sat (Calc) VBG Base Excess VBG Potassium Sodium 134 Chloride 96 L Glucose Lactate FiO2 Potassium 5.0 Carbon Dioxide 22 Anion Gap 21 H BUN 63 H Creatinine 1.3 Est GFR ( Amer) > 60 Est GFR (Non-Af Amer) 55 POC Glucose (mg/dL) 392 H Random Glucose 305 H* Calcium 9.3 Phosphorus 3.8 Magnesium 2.1 Total Bilirubin 0.3 AST 39 ALT 19 Alkaline Phosphatase 108 Total Protein 7.5 Albumin 3.7 Globulin 3.8 Albumin/Globulin Ratio 1.0 L Triglycerides 95 Cholesterol 113 L LDL Cholesterol Direct 48 HDL Cholesterol 35 Thyroxine (T4) TSH 3rd Generation Venous Blood Potassium 05/11/17 05/11/17 05/11/17 05:30 05:30 05:30 WBC 24.5 H RBC 3.97 Hgb 11.1 L Hct 32.7 L MCV 82.4 MCH 28.0 MCHC 33.9 RDW 14.0 Plt Count 480 H MPV 10.5 Gran % 84.2 H Lymph % (Auto) 9.1 L [place] % (Auto) 6.7 H Eos % (Auto) 0.0 L Baso % (Auto) 0.0 Gran # 20.64 H Lymph # 2.2 [place] # 1.6 H Eos # 0.0 Baso # 0.01 APTT 69.6 H pO2 VBG pH VBG pCO2 VBG HCO3 VBG Total CO2 VBG O2 Sat (Calc) VBG Base Excess VBG Potassium Sodium Chloride Glucose Lactate FiO2 Potassium Carbon Dioxide Anion Gap BUN Creatinine Est GFR ( Amer) Est GFR (Non-Af Amer) POC Glucose (mg/dL) Random Glucose Calcium Phosphorus Magnesium Total Bilirubin AST ALT Alkaline Phosphatase Total Protein Albumin Globulin Albumin/Globulin Ratio Triglycerides Cholesterol LDL Cholesterol Direct HDL Cholesterol Thyroxine (T4) 13.7 H TSH 3rd Generation < 0.02 L Venous Blood Potassium Fingerstick Blood Sugar Results: 392 Review of Systems - Review of Systems Review of Systems: Please refer to [facility] Critical Care Progress Note - Ventilator Checklist PUD Prophalyxis: Yes DVT Prophylaxis: Yes - Extremities/Vascular Does the Patient have a Central Venous Catheter?: No Does the Patient need a Central Venous Catheter?: No Does the Patient have a Abrams Catheter?: No Does the Patient need a Abrams Catheter?: No - Prophylaxis GI Prophylaxis GI: PPI - Prophylaxis DVT Prophylaxis DVT: Heparin SQ (Heparin drip) - Nutrition Nutrition: Nutrition Category Date Time Status Heart Healthy Diet [DIET] Diets 05/10/17 Lunch Ordered Assessment/Plan - Assessment and Plan (Free Text) Assessment: 66 year old male with a past medical history significant for COPD who presented to the ICU with new onset atrial fibrillation. An echocardiogram showed a mild pericardial effusion. Patient has tachycardia but is otherwise hemodynamically stable. Plan: Neuro: -Alert and oriented to person, place, time and event Pulm: -Most recent chest x-ray showed poor inspiration with low lung volumes, crowded bronchovascular markings and bibasilar atelectasis left greater than right -Continue Duonebs PRN -Continue supplemental oxygen via NC at 2L -Maintain oxygen saturation above 88% Cardio: -ECHO showed an LVEF of 55.6%, a moderate pericardial effusion with no evidence of tamponade and normal atrial size and function -Continue Heparin and Cardizem drip (currently at 10) and transition to PO Cardizem 60mg Q6H -Patient given one dose of IV Amiodarone 150mg on 05/10 and continues to be in atrial fibrillation -Continue ASA and Lipitor -Initial troponin negative, serial troponins pending -CHADS-VASc score of 3, which is associated with a 3.2% stroke risk per year -Cardiology consulted, all recommendations appreciated GI: -Continue Pepcid -Heart health diet Renal: -BUN/Creatinine stable at 63/1.3 -Continue to monitor and replenish electrolytes as indicated with daily CMP's, magnesium and phosphorous levels Endo: -Continue SSI-Low and fingerstick glucose measurements ACHS -TSH low at 0.02 with free T4 high at 13.7 -Reverse T3 pending Heme/Onc: -LE Duplex negative for DVT's -Continue heparin drip ID: -Currently afebrile, normotensive, with no leukocytosis and with tachycardia -See chest x-ray read above -UA, Legionella, Strep. Pneumo, Procal, repeat lactic acid and blood cultures pending -Received one dose of Zosyn in ED -Continue Vancomycin and Zosyn Lines: -Continue all peripheral lines GI Prophylaxis: Pepcid DVT Prophylaxis: Heparin drip Disposition: Patient with good disposition overall. Will continue to re- evaluate need for ICU monitoring and transfer to telemetry when clinically indicated. Patient seen and case discussed with attending, Dr. Sarmiento. - Date & Time Date: 05/11/17 Time: 08:24 <Torsten CESAR,[facility] - Last Filed: 05/11/17 14:50> CCU Objective - Vital Signs / Intake & Output Vital Signs (Last 4 hours): Vital Signs Pulse 05/11/17 14:00 96 H Intake and Output (Last 8hrs): Intake & Output 05/10/17 05/11/17 05/11/17 22:59 06:59 14:59 Intake Total 365 705 Output Total 650 Balance 365 55 Weight 255 lb 255 lb 255 lb Intake: IV 115 555 Left Forearm 440 Oral 250 150 Output: Urine 650 Urine, Voided 650 Other: Voiding Method Toilet # Voids Urine, Voided 2 # Bowel Movements 0 - Medications Active Medications: Active Medications Generic Name Dose Route Start Last Admin Trade Name Freq PRN Reason Stop Dose Admin Albuterol/Ipratropium 3 ml 05/10/17 13:35 Duoneb 3 Mg/0.5 Mg (3 Ml) Ud IH Q4 PRN Shortness of Breath Aspirin 81 mg 05/11/17 10:00 05/11/17 09:29 Ecotrin PO 81 mg DAILY [facility] Administration Atorvastatin Calcium 10 mg 05/11/17 10:00 05/11/17 09:29 Lipitor PO 10 mg DAILY [facility] Administration Diltiazem HCl 60 mg 05/11/17 14:00 05/11/17 14:00 Cardizem PO 60 mg QID [facility] Administration Famotidine 20 mg 05/10/17 22:00 05/11/17 09:29 Pepcid PO 20 mg 1000,2200 [facility] Administration Heparin Sodium/Dextrose 25,000 units in 250 mls @ 20.885 mls/hr 05/10/17 09: 40 05/10/17 22:30 Heparin 25,000 Units/250ml In D5w IV 15 units/kg/hr .[id number] PRN 17.404 mls/hr ADJUST RATE PER PROTOCOL Titration Protocol 18 UNITS/KG/HR diltiaZEM IVPB 100mg in NS 100 mls @ 5 mls/hr 05/10/17 16:18 05/11/17 05:47 Cardizem 100mg In Ns IV 10 mg/hr .Q20H PRN 10 mls/hr TITRATE PER MD ORDER Titration Protocol 5 MG/HR Vancomycin HCl 1 gm in 250 mls @ 167 mls/hr 05/11/17 10:45 05/11/17 12:14 Vancomycin 1gm IVPB 167 mls/hr Q12H [facility] Administration Protocol Piperacillin Sod/Tazobactam Sod 100 mls @ 200 mls/hr 05/11/17 12:00 05/11/17 12:15 Zosyn 3.375 In Ns 100ml IVPB 05/11/17 18:29 200 mls/hr Q6 [facility] Administration Protocol Insulin Human Lispro 0 units 05/11/17 07:30 05/11/17 12:14 Humalog High SC 12 units ACHS [facility] Administration Protocol - Patient Studies Lab Studies: Lab Studies 05/11/17 05/11/17 05/11/17 Range/Units 12:33 09:29 09:29 WBC (4.5-11.0) 10^3/ul RBC (3.5-6.1) 10^6/uL Hgb (14.0-18.0) g/dL Hct (42.0-52.0) % MCV (80.0-105.0) fl MCH (25.0-35.0) pg MCHC (31.0-37.0) g/dl RDW (11.5-14.5) % Plt Count (120.0-450.0) 10^3/uL MPV (7.0-11.0) fl Gran % (50.0-68.0) % Lymph % (Auto) (22.0-35.0) % [place] % (Auto) (1.0-6.0) % Eos % (Auto) (1.5-5.0) % Baso % (Auto) (0.0-3.0) % Gran # (1.4-6.5) Lymph # (1.2-3.4) [place] # (0.1-0.6) Eos # (0.0-0.7) Baso # (0.0-2.0) K/mm3 APTT (23.7-30.8) Seconds pO2 (30-55) mm/Hg VBG pH (7.32-7.43) VBG pCO2 (40-60) VBG HCO3 (21-28) mmol/l VBG Total CO2 (22-28) mmol.L VBG O2 Sat (Calc) (40-65) % VBG Base Excess (0.0-2.0) mmol/L VBG Potassium (3.6-5.2) mmol/L Sodium (132-148) mmol/L Chloride (98-107) mmol/L Glucose (75-110) mg/dl Lactate (0.7-2.1) mmol/L FiO2 % Potassium (3.6-5.0) mmol/L Carbon Dioxide (21-33) mmol/L Anion Gap (10-20) BUN (7-21) mg/dL Creatinine (0.5-1.4) mg/dL Est GFR ( Amer) Est GFR (Non-Af Amer) POC Glucose (mg/dL) (65-110) mg/dL Random Glucose (70-110) mg/dL Hemoglobin A1c (4.2-6.5) % Lactic Acid 2.7 H (0.7-2.1) mmol/L Calcium (8.4-10.5) mg/dL Phosphorus (2.5-4.5) mg/dL Magnesium (1.7-2.2) mg/dL Total Bilirubin (0.2-1.3) mg/dL AST (17-59) U/L ALT (7-56) U/L Alkaline Phosphatase (38-126) U/L Troponin I < 0.01 ng/mL Total Protein (5.8-8.3) g/dL Albumin (3.0-4.8) g/dL Globulin gm/dL Albumin/Globulin Ratio (1.1-1.8) Triglycerides (35-160) mg/dL Cholesterol (130-200) mg/dL LDL Cholesterol Direct (0-129) mg/dL HDL Cholesterol (29-60) mg/dL Thyroxine (T4) (5.5-11.0) ug/dL TSH 3rd Generation (0.46-4.68) mIU/mL Venous Blood Potassium (3.6-5.2) mmol/L Urine Color Yellow (YELLOW) Urine Appearance Clear (CLEAR) Urine pH 6.0 (4.7-8.0) Ur Specific [place] 1.025 (1.005-1.035) Urine Protein Negative (<30 mg/dL) mg/dL Urine Glucose (UA) Negative (NEGATIVE) mg/dL Urine Ketones Negative (NEGATIVE) mg/dL Urine Blood Negative (NEGATIVE) Urine Nitrate Negative (NEGATIVE) Urine Bilirubin Negative (NEGATIVE) Urine Urobilinogen 0.2 (<1 E.U./dL) E.U./dL Ur Leukocyte Esterase Trace H (NEGATIVE) [place]/uL Urine RBC Negative (0-2) /hpf Urine WBC 1 - 3 (0-6) /hpf Ur Epithelial Cells 0 - 2 (0-5) /hpf Urine Bacteria Mod (NEG) 05/11/17 05/11/17 05/11/17 Range/Units 05:30 05:30 05:30 WBC 24.5 H (4.5-11.0) 10^3/ul RBC 3.97 (3.5-6.1) 10^6/uL Hgb 11.1 L (14.0-18.0) g/dL Hct 32.7 L (42.0-52.0) % MCV 82.4 (80.0-105.0) fl MCH 28.0 (25.0-35.0) pg MCHC 33.9 (31.0-37.0) g/dl RDW 14.0 (11.5-14.5) % Plt Count 480 H (120.0-450.0) 10^3/uL MPV 10.5 (7.0-11.0) fl Gran % 84.2 H (50.0-68.0) % Lymph % (Auto) 9.1 L (22.0-35.0) % [place] % (Auto) 6.7 H (1.0-6.0) % Eos % (Auto) 0.0 L (1.5-5.0) % Baso % (Auto) 0.0 (0.0-3.0) % Gran # 20.64 H (1.4-6.5) Lymph # 2.2 (1.2-3.4) [place] # 1.6 H (0.1-0.6) Eos # 0.0 (0.0-0.7) Baso # 0.01 (0.0-2.0) K/mm3 APTT 69.6 H (23.7-30.8) Seconds pO2 (30-55) mm/Hg VBG pH (7.32-7.43) VBG pCO2 (40-60) VBG HCO3 (21-28) mmol/l VBG Total CO2 (22-28) mmol.L VBG O2 Sat (Calc) (40-65) % VBG Base Excess (0.0-2.0) mmol/L VBG Potassium (3.6-5.2) mmol/L Sodium (132-148) mmol/L Chloride (98-107) mmol/L Glucose (75-110) mg/dl Lactate (0.7-2.1) mmol/L FiO2 % Potassium (3.6-5.0) mmol/L Carbon Dioxide (21-33) mmol/L Anion Gap (10-20) BUN (7-21) mg/dL Creatinine (0.5-1.4) mg/dL Est GFR ( Amer) Est GFR (Non-Af Amer) POC Glucose (mg/dL) (65-110) mg/dL Random Glucose (70-110) mg/dL Hemoglobin A1c (4.2-6.5) % Lactic Acid (0.7-2.1) mmol/L Calcium (8.4-10.5) mg/dL Phosphorus (2.5-4.5) mg/dL Magnesium (1.7-2.2) mg/dL Total Bilirubin (0.2-1.3) mg/dL AST (17-59) U/L ALT (7-56) U/L Alkaline Phosphatase (38-126) U/L Troponin I ng/mL Total Protein (5.8-8.3) g/dL Albumin (3.0-4.8) g/dL Globulin gm/dL Albumin/Globulin Ratio (1.1-1.8) Triglycerides (35-160) mg/dL Cholesterol (130-200) mg/dL LDL Cholesterol Direct (0-129) mg/dL HDL Cholesterol (29-60) mg/dL Thyroxine (T4) 13.7 H (5.5-11.0) ug/dL TSH 3rd Generation < 0.02 L (0.46-4.68) mIU/mL Venous Blood Potassium (3.6-5.2) mmol/L Urine Color (YELLOW) Urine Appearance (CLEAR) Urine pH (4.7-8.0) Ur Specific [place] (1.005-1.035) Urine Protein (<30 mg/dL) mg/dL Urine Glucose (UA) (NEGATIVE) mg/dL Urine Ketones (NEGATIVE) mg/dL Urine Blood (NEGATIVE) Urine Nitrate (NEGATIVE) Urine Bilirubin (NEGATIVE) Urine Urobilinogen (<1 E.U./dL) E.U./dL Ur Leukocyte Esterase (NEGATIVE) [place]/uL Urine RBC (0-2) /hpf Urine WBC (0-6) /hpf Ur Epithelial Cells (0-5) /hpf Urine Bacteria (NEG) 05/11/17 05/11/17 05/10/17 Range/Units 05:30 05:30 22:15 WBC (4.5-11.0) 10^3/ul RBC (3.5-6.1) 10^6/uL Hgb (14.0-18.0) g/dL Hct (42.0-52.0) % MCV (80.0-105.0) fl MCH (25.0-35.0) pg MCHC (31.0-37.0) g/dl RDW (11.5-14.5) % Plt Count (120.0-450.0) 10^3/uL MPV (7.0-11.0) fl Gran % (50.0-68.0) % Lymph % (Auto) (22.0-35.0) % [place] % (Auto) (1.0-6.0) % Eos % (Auto) (1.5-5.0) % Baso % (Auto) (0.0-3.0) % Gran # (1.4-6.5) Lymph # (1.2-3.4) [place] # (0.1-0.6) Eos # (0.0-0.7) Baso # (0.0-2.0) K/mm3 APTT (23.7-30.8) Seconds pO2 (30-55) mm/Hg VBG pH (7.32-7.43) VBG pCO2 (40-60) VBG HCO3 (21-28) mmol/l VBG Total CO2 (22-28) mmol.L VBG O2 Sat (Calc) (40-65) % VBG Base Excess (0.0-2.0) mmol/L VBG Potassium (3.6-5.2) mmol/L Sodium 134 (132-148) mmol/L Chloride 96 L (98-107) mmol/L Glucose (75-110) mg/dl Lactate (0.7-2.1) mmol/L FiO2 % Potassium 5.0 (3.6-5.0) mmol/L Carbon Dioxide 22 (21-33) mmol/L Anion Gap 21 H (10-20) BUN 63 H (7-21) mg/dL Creatinine 1.3 (0.5-1.4) mg/dL Est GFR ( Amer) > 60 Est GFR (Non-Af Amer) 55 POC Glucose (mg/dL) 392 H (65-110) mg/dL Random Glucose 305 H* (70-110) mg/dL Hemoglobin A1c 7.7 H (4.2-6.5) % Lactic Acid (0.7-2.1) mmol/L Calcium 9.3 (8.4-10.5) mg/dL Phosphorus 3.8 (2.5-4.5) mg/dL Magnesium 2.1 (1.7-2.2) mg/dL Total Bilirubin 0.3 (0.2-1.3) mg/dL AST 39 (17-59) U/L ALT 19 (7-56) U/L Alkaline Phosphatase 108 (38-126) U/L Troponin I ng/mL Total Protein 7.5 (5.8-8.3) g/dL Albumin 3.7 (3.0-4.8) g/dL Globulin 3.8 gm/dL Albumin/Globulin Ratio 1.0 L (1.1-1.8) Triglycerides 95 (35-160) mg/dL Cholesterol 113 L (130-200) mg/dL LDL Cholesterol Direct 48 (0-129) mg/dL HDL Cholesterol 35 (29-60) mg/dL Thyroxine (T4) (5.5-11.0) ug/dL TSH 3rd Generation (0.46-4.68) mIU/mL Venous Blood Potassium (3.6-5.2) mmol/L Urine Color (YELLOW) Urine Appearance (CLEAR) Urine pH (4.7-8.0) Ur Specific [place] (1.005-1.035) Urine Protein (<30 mg/dL) mg/dL Urine Glucose (UA) (NEGATIVE) mg/dL Urine Ketones (NEGATIVE) mg/dL Urine Blood (NEGATIVE) Urine Nitrate (NEGATIVE) Urine Bilirubin (NEGATIVE) Urine Urobilinogen (<1 E.U./dL) E.U./dL Ur Leukocyte Esterase (NEGATIVE) [place]/uL Urine RBC (0-2) /hpf Urine WBC (0-6) /hpf Ur Epithelial Cells (0-5) /hpf Urine Bacteria (NEG) 05/10/17 05/10/17 05/10/17 Range/Units 20:06 20:06 15:11 WBC (4.5-11.0) 10^3/ul RBC (3.5-6.1) 10^6/uL Hgb (14.0-18.0) g/dL Hct (42.0-52.0) % MCV (80.0-105.0) fl MCH (25.0-35.0) pg MCHC (31.0-37.0) g/dl RDW (11.5-14.5) % Plt Count (120.0-450.0) 10^3/uL MPV (7.0-11.0) fl Gran % (50.0-68.0) % Lymph % (Auto) (22.0-35.0) % [place] % (Auto) (1.0-6.0) % Eos % (Auto) (1.5-5.0) % Baso % (Auto) (0.0-3.0) % Gran # (1.4-6.5) Lymph # (1.2-3.4) [place] # (0.1-0.6) Eos # (0.0-0.7) Baso # (0.0-2.0) K/mm3 APTT > 180.0 H* (23.7-30.8) Seconds pO2 51 (30-55) mm/Hg VBG pH 7.40 (7.32-7.43) VBG pCO2 32.0 L (40-60) VBG HCO3 19.8 L (21-28) mmol/l VBG Total CO2 20.8 L (22-28) mmol.L VBG O2 Sat (Calc) 91.4 H (40-65) % VBG Base Excess -4.0 L (0.0-2.0) mmol/L VBG Potassium 4.7 (3.6-5.2) mmol/L Sodium 126.0 L (132-148) mmol/L Chloride 95.0 L (98-107) mmol/L Glucose 438 H* D (75-110) mg/dl Lactate 1.6 (0.7-2.1) mmol/L FiO2 21.0 % Potassium (3.6-5.0) mmol/L Carbon Dioxide (21-33) mmol/L Anion Gap (10-20) BUN (7-21) mg/dL Creatinine (0.5-1.4) mg/dL Est GFR ( Amer) Est GFR (Non-Af Amer) POC Glucose (mg/dL) 374 H (65-110) mg/dL Random Glucose (70-110) mg/dL Hemoglobin A1c (4.2-6.5) % Lactic Acid (0.7-2.1) mmol/L Calcium (8.4-10.5) mg/dL Phosphorus (2.5-4.5) mg/dL Magnesium (1.7-2.2) mg/dL Total Bilirubin (0.2-1.3) mg/dL AST (17-59) U/L ALT (7-56) U/L Alkaline Phosphatase (38-126) U/L Troponin I ng/mL Total Protein (5.8-8.3) g/dL Albumin (3.0-4.8) g/dL Globulin gm/dL Albumin/Globulin Ratio (1.1-1.8) Triglycerides (35-160) mg/dL Cholesterol (130-200) mg/dL LDL Cholesterol Direct (0-129) mg/dL HDL Cholesterol (29-60) mg/dL Thyroxine (T4) (5.5-11.0) ug/dL TSH 3rd Generation (0.46-4.68) mIU/mL Venous Blood Potassium 4.7 (3.6-5.2) mmol/L Urine Color (YELLOW) Urine Appearance (CLEAR) Urine pH (4.7-8.0) Ur Specific [place] (1.005-1.035) Urine Protein (<30 mg/dL) mg/dL Urine Glucose (UA) (NEGATIVE) mg/dL Urine Ketones (NEGATIVE) mg/dL Urine Blood (NEGATIVE) Urine Nitrate (NEGATIVE) Urine Bilirubin (NEGATIVE) Urine Urobilinogen (<1 E.U./dL) E.U./dL Ur Leukocyte Esterase (NEGATIVE) [place]/uL Urine RBC (0-2) /hpf Urine WBC (0-6) /hpf Ur Epithelial Cells (0-5) /hpf Urine Bacteria (NEG) Laboratory Results - last 24 hr 05/10/17 05/10/17 05/10/17 15:11 20:06 20:06 WBC RBC Hgb Hct MCV MCH MCHC RDW Plt Count MPV Gran % Lymph % (Auto) [place] % (Auto) Eos % (Auto) Baso % (Auto) Gran # Lymph # [place] # Eos # Baso # APTT > 180.0 H* pO2 51 VBG pH 7.40 VBG pCO2 32.0 L VBG HCO3 19.8 L VBG Total CO2 20.8 L VBG O2 Sat (Calc) 91.4 H VBG Base Excess -4.0 L VBG Potassium 4.7 Sodium 126.0 L Chloride 95.0 L Glucose 438 H* D Lactate 1.6 FiO2 21.0 Potassium Carbon Dioxide Anion Gap BUN Creatinine Est GFR ( Amer) Est GFR (Non-Af Amer) POC Glucose (mg/dL) 374 H Random Glucose Hemoglobin A1c Lactic Acid Calcium Phosphorus Magnesium Total Bilirubin AST ALT Alkaline Phosphatase Troponin I Total Protein Albumin Globulin Albumin/Globulin Ratio Triglycerides Cholesterol LDL Cholesterol Direct HDL Cholesterol Thyroxine (T4) TSH 3rd Generation Venous Blood Potassium 4.7 Urine Color Urine Appearance Urine pH Ur Specific [place] Urine Protein Urine Glucose (UA) Urine Ketones Urine Blood Urine Nitrate Urine Bilirubin Urine Urobilinogen Ur Leukocyte Esterase Urine RBC Urine WBC Ur Epithelial Cells Urine Bacteria 05/10/17 05/11/17 05/11/17 22:15 05:30 05:30 WBC RBC Hgb Hct MCV MCH MCHC RDW Plt Count MPV Gran % Lymph % (Auto) [place] % (Auto) Eos % (Auto) Baso % (Auto) Gran # Lymph # [place] # Eos # Baso # APTT pO2 VBG pH VBG pCO2 VBG HCO3 VBG Total CO2 VBG O2 Sat (Calc) VBG Base Excess VBG Potassium Sodium 134 Chloride 96 L Glucose Lactate FiO2 Potassium 5.0 Carbon Dioxide 22 Anion Gap 21 H BUN 63 H Creatinine 1.3 Est GFR ( Amer) > 60 Est GFR (Non-Af Amer) 55 POC Glucose (mg/dL) 392 H Random Glucose 305 H* Hemoglobin A1c 7.7 H Lactic Acid Calcium 9.3 Phosphorus 3.8 Magnesium 2.1 Total Bilirubin 0.3 AST 39 ALT 19 Alkaline Phosphatase 108 Troponin I Total Protein 7.5 Albumin 3.7 Globulin 3.8 Albumin/Globulin Ratio 1.0 L Triglycerides 95 Cholesterol 113 L LDL Cholesterol Direct 48 HDL Cholesterol 35 Thyroxine (T4) TSH 3rd Generation Venous Blood Potassium Urine Color Urine Appearance Urine pH Ur Specific [place] Urine Protein Urine Glucose (UA) Urine Ketones Urine Blood Urine Nitrate Urine Bilirubin Urine Urobilinogen Ur Leukocyte Esterase Urine RBC Urine WBC Ur Epithelial Cells Urine Bacteria 05/11/17 05/11/17 05/11/17 05:30 05:30 05:30 WBC 24.5 H RBC 3.97 Hgb 11.1 L Hct 32.7 L MCV 82.4 MCH 28.0 MCHC 33.9 RDW 14.0 Plt Count 480 H MPV 10.5 Gran % 84.2 H Lymph % (Auto) 9.1 L [place] % (Auto) 6.7 H Eos % (Auto) 0.0 L Baso % (Auto) 0.0 Gran # 20.64 H Lymph # 2.2 [place] # 1.6 H Eos # 0.0 Baso # 0.01 APTT 69.6 H pO2 VBG pH VBG pCO2 VBG HCO3 VBG Total CO2 VBG O2 Sat (Calc) VBG Base Excess VBG Potassium Sodium Chloride Glucose Lactate FiO2 Potassium Carbon Dioxide Anion Gap BUN Creatinine Est GFR ( Amer) Est GFR (Non-Af Amer) POC Glucose (mg/dL) Random Glucose Hemoglobin A1c Lactic Acid Calcium Phosphorus Magnesium Total Bilirubin AST ALT Alkaline Phosphatase Troponin I Total Protein Albumin Globulin Albumin/Globulin Ratio Triglycerides Cholesterol LDL Cholesterol Direct HDL Cholesterol Thyroxine (T4) 13.7 H TSH 3rd Generation < 0.02 L Venous Blood Potassium Urine Color Urine Appearance Urine pH Ur Specific [place] Urine Protein Urine Glucose (UA) Urine Ketones Urine Blood Urine Nitrate Urine Bilirubin Urine Urobilinogen Ur Leukocyte Esterase Urine RBC Urine WBC Ur Epithelial Cells Urine Bacteria 05/11/17 05/11/17 05/11/17 09:29 09:29 12:33 WBC RBC Hgb Hct MCV MCH MCHC RDW Plt Count MPV Gran % Lymph % (Auto) [place] % (Auto) Eos % (Auto) Baso % (Auto) Gran # Lymph # [place] # Eos # Baso # APTT pO2 VBG pH VBG pCO2 VBG HCO3 VBG Total CO2 VBG O2 Sat (Calc) VBG Base Excess VBG Potassium Sodium Chloride Glucose Lactate FiO2 Potassium Carbon Dioxide Anion Gap BUN Creatinine Est GFR ( Amer) Est GFR (Non-Af Amer) POC Glucose (mg/dL) Random Glucose Hemoglobin A1c Lactic Acid 2.7 H Calcium Phosphorus Magnesium Total Bilirubin AST ALT Alkaline Phosphatase Troponin I < 0.01 Total Protein Albumin Globulin Albumin/Globulin Ratio Triglycerides Cholesterol LDL Cholesterol Direct HDL Cholesterol Thyroxine (T4) TSH 3rd Generation Venous Blood Potassium Urine Color Yellow Urine Appearance Clear Urine pH 6.0 Ur Specific [place] 1.025 Urine Protein Negative Urine Glucose (UA) Negative Urine Ketones Negative Urine Blood Negative Urine Nitrate Negative Urine Bilirubin Negative Urine Urobilinogen 0.2 Ur Leukocyte Esterase Trace H Urine RBC Negative Urine WBC 1 - 3 Ur Epithelial Cells 0 - 2 Urine Bacteria Mod Critical Care Progress Note - Nutrition Nutrition: Nutrition Category Date Time Status Heart Healthy Diet [DIET] Diets 05/10/17 Lunch Ordered Attending/Attestation - Attestation I have personally seen and examined this patient.: Yes I have fully participated in the care of the patient.: Yes I have reviewed all pertinent clinical information: Yes Notes (Text): 05/11/17 14:47 66 y/o M w/ NEW LLL PNA and A FIB Currently on broad spectum abx and cx pending. Thyroid values indeterminate. RT3 ordered . Sick uthyroid. A fib on cardizem drip and P.O cardizem added as well. Out of bed to chair. cc time 55 min
[2017-05-11] MEDS ORDERED: Piperacillin/Tazobact 3.375 gm 100 ML IVPB STA (09:34)
[2017-05-11] MEDS ORDERED: Vancomycin 1gm in NS 250ml 1 GM/250 ML BAG IVPB STA (09:35)
--- NOTE | 2017-05-11 11:15 | PN ---
DATE: SUBJECTIVE: The patient is currently in CCU, room 128, bed 3. He is a 66-year-old white man who presented with a chief complaint of increasing shortness of breath. There had been no acute events overnight. PHYSICAL EXAMINATION: VITAL SIGNS: The patient is currently afebrile with a temperature of 98.2, pulse rate is 99, respiratory rate of 23, O2 saturation of 96% on nasal cannula. HEENT: PERRLA. EOMI. No icterus. NECK: Supple with a full range of motion. LUNGS: Clear to auscultation and percussion bilaterally. HEART: With an irregularly irregular rate and rhythm. No murmurs. ABDOMEN: Benign. NEUROLOGIC: There are no focal deficits. LABORATORY DATA: Shows a white blood cell count of 24.5, hemoglobin and hematocrit of 11.1 and 32.7, platelet count of 480 and 84.2% granulocytes. SMA-23, BUN of 63 with a creatinine of 1.3. Random glucose of 305, lactic acid of 2.7. Thyroxine of 13.7 with a TSH of less than 0.02. PROBLEM LIST: At this time; 1. New onset atrial fibrillation. 2. Sepsis. 3. Dehydration or prerenal azotemia. 4. Pneumonia. Tl Simms MD
[2017-05-11] MEDS: Vancomycin 1gm in NS 250ml 1 GM/250 ML BAG IVPB SCH ×2 (12:14→21:45)
[2017-05-11] MEDS: Piperacillin/Tazobact 3.375 gm 100 ML IVPB SCH ×2 (12:15→17:46)
[2017-05-11 12:40] LABS: URINE BILIRUBIN NEGATIVE (NEGATIVE); URINE BLOOD NEGATIVE (NEGATIVE); URINE GLUCOSE (UA) NEGATIVE (NEGATIVE); URINE KETONE NEGATIVE (NEGATIVE); URINE LEUKOCYTE ESTERASE TRACE Leu/uL (NEGATIVE); URINE PROTEIN NEGATIVE mg/dL (<30 mg/dL); URINE UROBILINOGEN 0.2 E.U./dL (<1 E.U./dL)
[2017-05-11 12:47] LABS: URINE APPEARANCE CLEAR (CLEAR); URINE COLOR YELLOW (YELLOW)
[2017-05-11 13:05] LABS: URINE BACTERIA MOD (NEG); URINE EPITHELIAL CELLS 0 - 2 /hpf (0-5); URINE RBC NEGATIVE /hpf (0-2)
--- NOTE | 2017-05-11 20:56 | PN ---
DATE: 05/11/2017 SUBJECTIVE: The patient is seen lying in bed in the ICU. He feels somewhat better today. He remains in atrial fibrillation with a moderate ventricular response. He is currently afebrile. He continues to have productive cough. He denies any chest pain. CURRENT MEDICATIONS: Include diltiazem 60 mg q.i.d., intravenous diltiazem, DuoNeb inhaler, Ecotrin, IV heparin, insulin coverage, Lipitor 10 mg daily, Pepcid 20 mg b.i.d., vancomycin, and Zosyn. OBJECTIVE: GENERAL: He is an overweight middle age man. VITAL SIGNS: His blood pressure is 122/80 with a pulse of 96, in atrial fibrillation, respirations are 16. He is afebrile. HEENT: No JVD. CHEST: Bilateral coarse rhonchi. HEART: PMI displaced laterally with an irregular regular rhythm. ABDOMEN: Soft, nontender. Normoactive bowel sounds. EXTREMITIES: 1+ ankle edema. DIAGNOSTIC DATA: Potassium 5.0, BUN and creatinine are 63 and 1.3, glucose is 305. White count is 24.5, hemoglobin and hematocrit 11.1 and 32.7, and the platelet count of 480,000. PTT is 55. Hemoglobin A1c is 7.7%, lactic acid 2.7. Troponin is negative. TSH is less than 0.02 with T4 13.7. Echocardiogram reveals normal LV size and systolic function with mild concentric LVH. Mild tricuspid regurgitation and moderate pericardial effusion with no evidence of tamponade. IMPRESSION: 1. Possible left lower lobe pneumonia. 2. New onset atrial fibrillation. 3. Moderate pericardial effusion. 4. Coronary artery disease with chronically occluded right coronary artery. 5. Poorly controlled diabetes. 6. Possible hyperthyroidism. RECOMMENDATIONS: His current medications will be continue. Broad-spectrum antibiotics will be continue for now. If thyroid workup confirms hyperthyroidism switching to beta-dottie for heart rate control would be preferable. IV anticoagulation will be continued for now. Follow up echocardiogram in several days to monitor his pericardial effusion that will be planned. We will continue to follow and make further recommendations as appropriate.. Kaleb Durham MD [facility] # [id number]
[2017-05-12 06:20] LABS: HEMATOCRIT 29.4 % (42.0-52.0); MEAN CELL VOLUME 82.6 fl (80.0-105.0); MEAN CORPUSCULAR HEMOGLOBIN 27.8 pg (25.0-35.0); MEAN CORPUSCULAR HGB CONC 33.7 g/dl (31.0-37.0); MEAN PLATELET VOLUME 10.3 fl (7.0-11.0); RED CELL DISTRIBUTION WIDTH 14.1 % (11.5-14.5)
[2017-05-12 06:26] LABS: WHITE BLOOD COUNT 26.8 10^3/ul (4.5-11.0)
[2017-05-12 06:29] LABS: BLOOD UREA NITROGEN 73 mg/dL (7-21); CARBON DIOXIDE 24 mmol/L (21-33); CHLORIDE 98 mmol/L (98-107); GFR AFRICAN-AMERICAN > 60; POTASSIUM 4.9 mmol/L (3.6-5.0); SODIUM 132 mmol/L (132-148)
--- NOTE | 2017-05-12 06:44 | CP.PCM.PN ---
Subjective - Date & Time of Evaluation Date of Evaluation: 05/12/17 Time of Evaluation: 06:39 - Subjective Subjective: Nurse calls and tells that patient has had black stool and blood wipe at anus. Has history of hemorrhoids. Patient was seen at bedside. Is on heparin drip which is held. Denies abdominal pain, nausea, vomiting , hematemesis. This 66 year old male was admitted progressively worsening shortness of breath, new onset atrial fibrillation, PNA. Has PMH of COPD, HLD. Objective - Vital Signs/Intake and Output Vital Signs (last 24 hours): Temp Pulse Resp BP Pulse Ox 98.1 F 105 H 25 H 104/38 L 96 05/12/17 04:00 05/12/17 05:53 05/11/17 21:50 05/11/17 21:23 05/11/17 21:50 Intake and Output: 05/11/17 05/12/17 18:59 06:59 Intake Total 5 650 Output Total 400 Balance 5 250 - Medications Medications: Current Medications Albuterol/Ipratropium (Duoneb 3 Mg/0.5 Mg (3 Ml) Ud) 3 ml IH Q4 PRN PRN Reason: Shortness of Breath Aspirin (Ecotrin) 81 mg PO DAILY [facility] Last Admin: 05/11/17 09:29 Dose: 81 mg Atorvastatin Calcium (Lipitor) 10 mg PO DAILY [facility] Last Admin: 05/11/17 09:29 Dose: 10 mg Diltiazem HCl (Cardizem) 60 mg PO QID [facility] Last Admin: 05/11/17 21:19 Dose: 60 mg Famotidine (Pepcid) 20 mg PO 1000,2200 [facility] Last Admin: 05/11/17 21:24 Dose: 20 mg Heparin Sodium/Dextrose (Heparin 25,000 Units/250ml In D5w) 25,000 units in 250 mls @ 20.885 mls/hr IV .[id number] PRN; Protocol; 18 UNITS/KG/HR PRN Reason: ADJUST RATE PER PROTOCOL Last Titration: 05/12/17 05:24 Dose: 15 units/kg/hr, 17.404 mls/hr diltiaZEM IVPB 100mg in NS (Cardizem 100mg In Ns) 100 mls @ 5 mls/hr IV .Q20H PRN; Protocol; 5 MG/HR PRN Reason: TITRATE PER MD ORDER Last Titration: 05/11/17 16:03 Dose: 0 mg/hr, 0 mls/hr Vancomycin HCl (Vancomycin 1gm) 1 gm in 250 mls @ 167 mls/hr IVPB Q12H [facility] PRN Reason: Protocol Last Admin: 05/11/17 21:45 Dose: 167 mls/hr Insulin Human Lispro (Humalog High) 0 units SC ACHS [facility]CIAL PRN Reason: Protocol Last Admin: 05/11/17 21:55 Dose: Not Given - Labs Labs: 05/12/17 05:00 05/11/17 05:30 PT 12.3 Seconds (9.9-11.8) H 05/10/17 08:59 INR 1.14 (0.93-1.08) H 05/10/17 08:59 APTT 45.7 Seconds (23.7-30.8) H 05/12/17 05:00 - Constitutional Appears: Well, No Acute Distress - Head Exam Head Exam: ATRAUMATIC, NORMAL INSPECTION, NORMOCEPHALIC - Eye Exam Eye Exam: Normal appearance - ENT Exam ENT Exam: Normal External Ear Exam - Neck Exam Neck Exam: Normal Inspection - Respiratory Exam Respiratory Exam: NORMAL BREATHING PATTERN - Cardiovascular Exam Cardiovascular Exam: absent: JVD - GI/Abdominal Exam GI & Abdominal Exam: absent: Distended - Rectal Exam Rectal Exam: Deferred - Exam Additional comments: Deferred. - Extremities Exam Extremities Exam: Normal Inspection - Back Exam Back Exam: NORMAL INSPECTION - Neurological Exam Neurological Exam: Alert, Oriented x3 - Psychiatric Exam Psychiatric exam: Normal Affect, Normal Mood - Skin Skin Exam: Normal Color Assessment and Plan - Assessment and Plan (Free Text) Assessment: GI bleeding. PNA. COPD. Atrial fibrillation. HTN. Anemia. Plan: Hold heparin drip. Orthostatic vitals. CBC. PTT. type and screen. GI consult. Continue present management.
[2017-05-12 06:48] LABS: GLUCOSE,RANDOM 302 mg/dL (70-110)
[2017-05-12] MEDS: Insulin Lispro (HUMAlog) HIGH Coverage SC SCH ×4 (08:51→22:08)
[2017-05-12 09:04] LABS: HEMATOCRIT 30.4 % (42.0-52.0)
[2017-05-12] MEDS: Vancomycin 1gm in NS 250ml 1 GM/250 ML BAG IVPB SCH (10:34)
[2017-05-12] MEDS: Pantoprazole 40mg/100ml IVPB 40 MG/100 ML BAG IVPB SCH ×3 (10:46→20:51)
[2017-05-12] MEDS ORDERED: Iohexol 240 (50 ml) ONE (12:20)
--- NOTE | 2017-05-12 12:25 | CON ---
DATE: 05/12/2017 REQUESTING PHYSICIAN: Tl Smims MD REASON FOR CONSULTATION: I have been asked to see this 66-year-old male who is admitted to the hospital with increasing shortness of breath for 3-4 days, possible pneumonia, sepsis, new onset atrial fibrillation home whom I have been asked to see for GI bleeding. The patient had marked tarry stools this morning with occasional spotting of bright red blood upon wiping his bottom after a bowel movement. His blood count has trended slightly down word from 12.3 to 11.1-9.9 is up to 10.5 this morning, his white blood cell count remains elevated in the 25,000 range. He denies any fevers and chills. He is being treated for pneumonia. He denies any abdominal pain, nausea, vomiting, chest pain or shortness of breath. He does have a history of diabetes mellitus and had a cardiac catheterization which revealed occlusion of his right coronary artery. PAST MEDICAL HISTORY: Notable for COPD, hyperlipidemia, coronary artery disease, new onset A fib, obesity and diabetes mellitus. PAST SURGICAL HISTORY: Notable for repair of left tib-fib fracture. SOCIAL HISTORY: He denies cigarette smoking or alcohol use. FAMILY HISTORY: Noncontributory. REVIEW OF SYSTEMS: 14 point review of systems is notable for shortness of breath, melena, rectal bleeding, chest pain. PHYSICAL EXAMINATION: GENERAL: Obese male lying in bed in no acute distress. VITAL SIGNS: Reveal temperature of 98.4, blood pressure 124/61, heart rate of 103. HEENT: Reveal sclerae to be white. Conjunctivae pink. NECK: Supple. CHEST: Revealed scattered rhonchi at the bases. HEART: Exam reveals a irregularly irregular rate. ABDOMEN: Soft, nontender. No mass. EXTREMITIES: Showed no edema. LABORATORY DATA: Reveal white blood cell count 26.8, hemoglobin 10.5, platelet count of 539,000: Coag revealed PTT 45.7. Chemistries reveal BUN 73, creatinine 1, blood sugar 312. AST, ALT, alk phos were all normal. IMPRESSION: A 66-year-old male admitted to the hospital with shortness of breath, found to have pneumonia, elevated white blood cell count with melena. The patient had been on a heparin drip for atrial fibrillation. His blood count appears to stabilized, this is probably an upper GI bleed. RECOMMENDATIONS 1. We will request an infectious disease consult, given persistent elevated white blood cell count despite being on antibiotics. 2. Follow serial hematocrits. 3. I will start the patient on a Protonix drip. 4. Follow serial hematocrits. 5. The patient will need an endoscopy once his cardiopulmonary status and sepsis has been treated. Mane Valverde MD
--- NOTE | 2017-05-12 13:25 | PN ---
DATE: 05/12/2017 SUBJECTIVE: The patient was seen, lying in bed on telemetry. He developed dark stools and was found to be guaiac positive. Heparin has been discontinued. Aspirin was discontinued this morning as well. GI evaluation is pending. His hemoglobin has fallen from 12.5 to 9.9 since admission. He denies any chest pain. His cough is improved. His dyspnea is not present at this time. CURRENT MEDICATIONS: Include diltiazem 60 mg q.i.d., DuoNeb inhaler, insulin coverage, Lipitor 10 mg daily, Pepcid 20 mg daily, and vancomycin. OBJECTIVE: GENERAL: He is an overweight middle-aged man. VITAL SIGNS: His blood pressure is 120/60 with a pulse of 100-120 in atrial fibrillation, and respirations are 16. He is currently afebrile. HEENT: No JVD. CHEST: Diminished breath sounds at the bases with bilateral rhonchi heard. HEART: PMI displaced laterally with distant tones noted. ABDOMEN: Soft, obese, and nontender. Normoactive bowel sounds. EXTREMITIES: 1+ leg edema. DIAGNOSTIC DATA: Potassium 4.9, BUN and creatinine are 73 and 1.0, and glucose is 302. White count is 26.8, hemoglobin and hematocrit 9.9 and 29.4, and platelet count of 539,000. Repeat thyroid studies are pending. IMPRESSION: 1. Recent onset atrial fibrillation with fair ventricular rate control. 2. Apparent gastrointestinal bleeding, unable to continue anticoagulants at this time. 3. Possible pneumonia. Remains on vancomycin alone. 4. Moderate pericardial effusion with no evidence of hemodynamic compromise at this time. 5. Persistent leukocytosis, etiology unclear. 6. Elevated T4 with nondetectable TSH, workup in progress. RECOMMENDATIONS: 1. Low dose beta-dottie therapy will be added at this time for heart rate control. Anticoagulation was to be withheld as indicated. 7. Gastrointestinal evaluation is pending. 8. Followup echocardiogram next week to monitor his pericardial effusion will be planned. 9. If his leukocytosis persist, consideration may need to be given to hematologic evaluation. Because leukocytosis is not clearly explained, consideration can be given to pericardiocentesis and pericardial biopsy. Consideration should be given to possible CT scan of the chest for further evaluation of his pulmonary issues. We will continue to follow and make further recommendations as appropriate. Kaleb Durham MD [facility] # [id number]
[2017-05-12] MEDS ORDERED: Digoxin 500 mcg/2ml (0.5 mg/2ml) Inj IVP ONE (14:50)
[2017-05-12 15:07] LABS: HEMATOCRIT 28.8 % (42.0-52.0)
[2017-05-12] MEDS: Meropenem 1g/NS 100mL IVPB 1 GM/100 ML PIGGYBACK IVPB SCH ×2 (15:07→22:05)
[2017-05-12 18:18] LABS: HEMATOCRIT 27.2 % (42.0-52.0)
--- NOTE | 2017-05-12 19:52 | CT ---
EXAM: CT Abdomen and Pelvis With Intravenous Contrast EXAM DATE/TIME: 05/12/2017 12:12 PM CLINICAL HISTORY: 66 years old, male; Signs and symptoms; Other: Bright red blood per rectum; Prior surgery; Surgery date: 6+ months; Surgery type: Lap band; Additional info: Brbpr TECHNIQUE: Axial computed tomography images of the abdomen and pelvis with intravenous contrast. All CT scans at this facility use one or more dose reduction techniques, viz.: automated exposure control; ma/kV adjustment per patient size (including targeted exams where dose is matched to indication; i.e. head); or iterative reconstruction technique. Coronal and sagittal reformatted images were created and reviewed. CONTRAST: 50 mL of omnipaque 240 administered intravenously. COMPARISON: There are no prior studies for comparison. FINDINGS: Lower thorax: Heart size is normal. There is a moderately large pericardial effusion. Maximal width is 2.6 cm adjacent to the left ventricle. There are coronary artery calcifications. Aorta is normal in caliber. There is mild dilatation of the main pulmonary artery, 3.3 cm in diameter. There are bilateral pleural effusions. There is airspace disease at both lung bases. ABDOMEN: Liver: The liver is mildly enlarged. Gallbladder and bile ducts: Gallbladder is distended. There are dependent stones common duct is unremarkable. Pancreas: Pancreas is atrophic with fatty replacement. Spleen: unremarkable Adrenals: Right adrenal is unremarkable. There is a focal left adrenal calcification. Kidneys and ureters: There is a small right renal cyst. There is a tiny nonobstructing left renal stone. There is no pelvocaliectasis or ureterectasis. Stomach and bowel: There is a gastric band. Stomach is almost empty. There is a gastric band. Rotation is normal. There is no small bowel obstruction. Terminal ileum is unremarkable. Appendix is not visualized. There is no pericecal inflammation.Colon is incompletely distended which limits evaluation. There is contrast and air throughout the colon. There is minimal diverticulosis. Appendix: See above. PELVIS: Bladder: Bladder is distended. Reproductive: Prostate is mildly enlarged. Seminal vesicles are unremarkable.There are calcifications in the vas deferens. ABDOMEN and PELVIS: Intraperitoneal space: There is no free air or free fluid. Bones/joints: Bony structures are osteopenic with degenerative change there is compression fracture of T11 with wedge deformity. There is less severe compression fracture T12 with deformity of the superior endplate. There is mild wedging T10. Soft tissues: There is a small fat containing umbilical hernia. Vasculature: There are vascular calcifications. There are vascular calcifications. Lymph nodes: There is no pathologic adenopathy. IMPRESSION: Moderately large pericardial effusion; bilateral pleural effusions with basilar airspace disease pneumonia and/or atelectasis; gastric band; diverticulosis without CT findings of diverticulitis; gallstone; mild hepatomegaly; osteopenia with degenerative change and compression fractures Additional findings as described above.
--- NOTE | 2017-05-12 20:02 | CT ---
EXAM: CT Chest Without Intravenous Contrast EXAM DATE/TIME: 05/12/2017 12:03 PM CLINICAL HISTORY: 66 years old, male; Signs and symptoms; Other: Pmn; Prior surgery; Surgery date: 6+ months; Surgery type: HX cardiac catherization TECHNIQUE: Axial computed tomography images of the chest without intravenous contrast. All CT scans at this facility use one or more dose reduction techniques, viz.: automated exposure control; ma/kV adjustment per patient size (including targeted exams where dose is matched to indication; i.e. head); or iterative reconstruction technique. MIP reconstructed images were created and reviewed. Coronal and sagittal reformatted images were created and reviewed. COMPARISON: DX - CHEST PORTABLE 05/10/2017 12:53:07 PM FINDINGS: Lungs and pleural spaces: Trachea and main bronchi are patent. There is subsegmental opacity in the right upper lobe. There is airspace disease in the lingula. Right middle lobe is well aerated. There are bilateral pleural effusions. There is bilateral lower lobe airspace disease with air bronchograms. Heart and vasculature: Heart size is normal. There is a moderately large pericardial effusion. The effusion measures 2.3 cm in width adjacent to the left ventricle. There are coronary artery calcifications. Aorta is normal in caliber.There are vascular calcifications. Main pulmonary artery is prominent 3.3 cm in diameter Mediastinum: Esophagus is unremarkable. There is a gastric band at the gastroesophageal junction. There is shotty mediastinal nodes.Gauri are not optimally evaluated without contrast material. Thyroid: Thyroid is enlarged and heterogeneous with nodules and calcifications. Bones/joints: Bony structures are osteopenic. There is exaggeration of the thoracic kyphosis. There is diffuse osteopenia with degenerative change. There is compression fracture with wedging at T11. There is less extensive deformity T10 and T12. There are bridging syndesmophytes at multiple levels. There is disc space narrowing. Soft tissues: unremarkable Upper abdomen: There are no acute abnormalities in the visualized portion of the abdomen. IMPRESSION: Moderately large pericardial effusion; normal heart size with atherosclerotic disease; bilateral pleural effusions and airspace disease greatest in the lower lobes infiltrate and/or atelectasis Additional findings as described above.
[2017-05-13] MEDS: Pantoprazole 40mg/100ml IVPB 40 MG/100 ML BAG IVPB SCH ×5 (01:30→21:26)
--- NOTE | 2017-05-13 02:17 | CON ---
DATE: 05/12/2017 LOCATION: The patient is in room 268, bed 1. CHIEF COMPLAINT: Shortness of breath, cough, and chest pain from several days. HISTORY OF PRESENT ILLNESS: This is a 66-year-old male with morbid obesity with a BMI of 41 with chronic obstructive lung disease, emphysema, hyperlipidemia, peripheral edema, hypertension, diabetes mellitus, in August cardiac catheterization and history of left tibia-fibula surgery, history of tonsillectomy and with no known allergies who was admitted with shortness of breath and chest pain. Chest pain is pleuritic in nature and found to be in atrial fibrillation with a white count of 22,000 in the emergency room. The patient was given antibiotics and continues to have persistent white count. He denies any abdominal pain. Now, he is complaining of bright red blood per rectum. No headaches or blurred vision; however, he did have headaches earlier. Still no blurred vision. No dysuria or frequency other than bright red blood per rectum. No diarrhea. There is cough, nonproductive. There is chills and low grade fevers. PAST MEDICAL HISTORY: Significant for chronic obstructive lung disease, emphysema, hyperlipidemia, peripheral edema, hypertension, diabetes mellitus, and morbid obesity with BMI of 41. PAST SURGICAL HISTORY: Significant for cardiac catheterization in August 2016 and left tibia-fibula surgery and tonsillectomy. ALLERGIES: THE PATIENT HAS NO KNOWN ALLERGIES. MEDICATIONS AT HOME: Reviewed include Toprol, Claritin, lisinopril, hydrochlorothiazide, inhaler, insulin, Lipitor, calcium, vitamin D3, and vitamin B12. SOCIAL HISTORY: The patient is an ex-smoker for many years. 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 No travel recently. Last travel was 8 years ago to [place]. He lives with his sister. PHYSICAL EXAMINATION: GENERAL: He is in bed, answering questions appropriately, and somewhat short of breath. VITAL SIGNS: Temperature of 98, T-max of 99, heart rate of 105, respiratory rate of 25 yesterday and the patient's blood pressure is 108/60. The patient was saturating on admission yesterday with 85% saturation. HEENT: Unremarkable. NECK: Supple. HEART: Normal S1 and S2. LUNGS: Decreased breath sounds. ABDOMEN: Soft and nontender. No organomegaly. No rebound or guarding. EXTREMITIES: He does have peripheral edema. LABORATORY DATA: Reveals a white count of 22,000, hemoglobin of 12, which is down to 9.9, hematocrit is 35, platelets of 514, 77% granulocytosis, 10% lymphocytosis, and coagulation is noted. Blood gases are noted. Chemistry reveals a BUN of 45 and creatinine of 1.9 on admission. Prior to that, the patient's creatinine was 0.6 in 07/2016. Creatinine has improved to 1.0. The patient's anion gap is 23 with carbon dioxide of 21, sodium of 131, glucose was 270, and BNP was 575. Urinalysis reveals unremarkable urine, no protein is trace, leukocyte esterase and stool for occult blood is positive. Blood cultures are no growth at 48 hours. Sputum culture with oral evelyn. Chest x-ray is reviewed. Another chest x-ray shows carotid markings read by Dr. Kayden Klein. EKG reveals a QTc of 385. Ultrasound of lower extremities is negative. Dr. Durham's note is reviewed. Dr. Tl Simms's progress note from yesterday is also reviewed. ASSESSMENT AND PLAN: This is a 66-year-old male with chronic obstructive lung disease, emphysema, hyperlipidemia, peripheral edema, hypertension, diabetes, and morbid obesity, BMI of 41 who was admitted with a white count of 22,000 and continue to have elevated WBC count, it is up to 26,000, although at this point, the patient was on antibiotics for 2 days. The patient did receive a dose of Solu-Medrol in the emergency room and dose of antibiotics. Severe sepsis with a community-acquired pneumonia with acute kidney injury with creatinine of 0.6 to 1.9. We will treat the patient with Zyvox, meropenem, and doxycycline. Repeat the procalcitonin, which is reported to be normal with negative blood cultures and negative sputum cultures. We will order a CAT scan of the chest to rule out pleural fluid and/or empyema and CAT scan of the abdomen and pelvis because of the anemia and thrombocytosis, I will make further recommendations upon the availability of initial results. We will follow closely with you. The patient's sister's questions have been answered and the patient's questions have also been answered. Nain Rosas MD
--- NOTE | 2017-05-13 02:23 | PN ---
DATE: LOCATION: The patient is on room 268, bed 1. SUBJECTIVE: The patient did have a rectal bleed. Hemoglobin and hematocrits has been followed. He denies any pain. PHYSICAL EXAMINATION: VITAL SIGNS: Temperature of 98.1, pulse rate of 95, blood pressure 108/67, respiratory rate of 20 with an O2 saturation of 97% on nasal cannula. HEENT: Unremarkable. NECK: Supple with no JVD. LUNGS: Clear. HEART: Irregularly irregular. ABDOMEN: Benign. NEUROLOGICAL: There are no focal motor deficits. LABORATORY DATA: White blood cell counts is 26.8, hemoglobin and hematocrit are 9.9 and 29.4. Chemistries unremarkable except for random glucose of 302 and the patient is on insulin coverage. Microbiology is complete with no MRSA found. IMPRESSION: At this time is new onset atrial fibrillation, sepsis, acute kidney injury, dehydration and pneumonia. Continue current regimen. Dr. Valverde has been consulted for the gastrointestinal bleed. Tl Simms MD
[2017-05-13] MEDS: Meropenem 1g/NS 100mL IVPB 1 GM/100 ML PIGGYBACK IVPB SCH ×3 (05:34→21:26)
[2017-05-13 07:22] LABS: HEMATOCRIT 27.1 % (42.0-52.0); MEAN CELL VOLUME 82.1 fl (80.0-105.0); MEAN CORPUSCULAR HEMOGLOBIN 27.3 pg (25.0-35.0); MEAN CORPUSCULAR HGB CONC 33.2 g/dl (31.0-37.0); MEAN PLATELET VOLUME 9.5 fl (7.0-11.0); WHITE BLOOD COUNT 15.9 10^3/ul (4.5-11.0)
[2017-05-13] MEDS: Insulin Lispro (HUMAlog) HIGH Coverage SC SCH ×4 (08:20→22:41)
--- NOTE | 2017-05-13 10:51 | PN ---
DATE: 05/13/2017 SUBJECTIVE: The patient is lying in bed comfortable. He had one episode of melena last night. He denies any abdominal pain or shortness of breath. His hemoglobin remained stable in the 9-gram range. PHYSICAL EXAMINATION: VITAL SIGNS: Reveal temperature of 97.1, blood pressure of 140/71, and heart rate of 90. HEENT: Reveal sclerae to be white. Conjunctivae are pale. NECK: Supple. CHEST: Reveals scattered rhonchi at the bases. HEART: Exam reveals an irregularly irregular rate. GASTROINTESTINAL: Abdomen is obese, soft, and nontender. EXTREMITIES: Show trace pedal edema. LABORATORY DATA: Revealed white blood cell count of 15.9 and hemoglobin of 9. DIAGNOSTIC DATA: A CT scan of the chest shows bilateral lower lobe infiltrates with a pericardial effusion and no acute findings were found in the abdomen. IMPRESSION: This is a 66-year-old male with sepsis, bilateral pneumonia, pericardial effusion, and new onset atrial fibrillation. RECOMMENDATIONS: 1. Continue to follow serial hematocrits. 2. Continue IV Protonix drip. 3. I will schedule the patient for an upper endoscopy later in the week once his pneumonia has been adequately treated and the patient has been cleared by cardiology, given his pericardial effusion. Mane Valverde MD
[2017-05-13] MEDS: Digoxin 250 mcg (0.25 mg) Tab PO SCH (13:29)
--- NOTE | 2017-05-13 13:51 | PN ---
SUBJECTIVE: The patient was seen and examined at bedside on the telemetry blancas. No acute events overnight. He remains afebrile and hemodynamically stable. This morning he feels well and does endorse an additional bowel movement that was tarry, but otherwise denies bright red blood per rectum. He further denies fevers, chills, rigors, or chest pain. OBJECTIVE: VITAL SIGNS: Temperature 97.9, pulse 90, blood pressure 140/71, respiratory rate 20, and oxygen saturation 95% on 2 L nasal cannula. GENERAL: Obese man, lying in bed, and in no apparent distress. HEENT: PERRL. EOMI. No scleral icterus. Mild conjunctival pallor is noted. NECK: No JVD. No bruits. LUNGS: Decreased breath sounds to the bases with scattered bilateral rhonchi. CARDIOVASCULAR: Tachycardic, irregularly irregular. No friction rub. ABDOMEN: Obese, soft, nontender, nondistended. EXTREMITIES: Trace lower extremity edema bilaterally. NEUROLOGIC: Awake, alert, and oriented x3. No focal motor deficits. LABORATORY DATA: WBC 15.9, hemoglobin 9, hematocrit 27, and platelets 446. Chemistry pending. ASSESSMENT: The patient is a 66-year-old man with past medical history of CAD, hyperlipidemia and COPD who presented to [facility] with a several day history of dyspnea and cough and who was initially admitted to the ICU for new onset AFib with RVR and management of lobar pneumonia who is now status post transfer out of the ICU and maintained on the telemetry blancas for continued management of atrial fibrillation (new onset), lobar pneumonia and pericardial effusion. PLAN: 1. Sepsis secondary to community-acquired pneumonia. The patient remains afebrile and hemodynamically stable. Input from Dr. Rosas noted and appreciated and antibiotics have been adjusted to consist of Doxycycline 100 mg p.o. q.12 hours and Linezolid 600 mg p.o. b.i.d. The patient remains afebrile and with improving leukocytosis. Blood cultures with no growth today. HIV is pending. 2. GI bleed. The patient remains off heparin and with stable H and H. Input from Dr. Valverde noted and appreciated and the patient remains on clear liquid diet. EGD to be scheduled when clear from cardiac perspective. In the interim , will monitor CBC daily and transfuse to goal Hb greater than 8. 3. Atrial fibrillation with rapid ventricular response (new onset). Input from Dr. Durham, cardiology noted and greatly appreciated. The patient presently remains rate controlled. Continue with diltiazem 60 mg p.o. q.6 hours , Lopressor 25 mg p.o. b.i.d., and digoxin 0.25 mg p.o. daily. 4. Pericardial effusion. The patient remains hemodynamically stable and with no chest pain as above. Input from Dr. Durham noted and appreciated. Etiology of pericardial effusion is unclear as of yet. A repeat transthoracic echocardiogram is to be scheduled as per the patient. 5. CAD, status post PCI. The patient remains hemodynamically stable and chest pain free. Continue with Lipitor 10 mg p.o. daily and Lopressor 25 mg p.o. b.i.d. Antiplatelet and anticoagulation therapy is being held in the setting of probable upper GI bleed. 6. COPD. The patient remains with stable respiratory status, continue with supplemental oxygen and bronchodilators as needed. 7. Prophylaxis. The patient remains on Protonix drip, thus GI prophylaxis is not indicated. Continue with Venodyne for DVT prophylaxis in the setting of probable upper GI bleed. CODE STATUS: Full code. Trevor Simms MD MTDD
--- NOTE | 2017-05-13 14:43 | PN ---
DATE: 05/13/2017 SUBJECTIVE: The patient is in bed, in no acute distress, nontoxic. However, he is feeling better, less short of breath and less cough. PHYSICAL EXAMINATION: VITAL SIGNS: Temperature is 98, blood pressure is 129/70, respiratory rate of 18, heart rate of 100. HEENT: Unremarkable. NECK: Supple. LUNGS: Decreased breath sounds. HEART: Normal S1 and S2. ABDOMEN: Soft and nontender. LABORATORY DATA: Examination reveals the white count is 15,900; hemoglobin of 9; platelets of 446. The chemistries reveal the patient's BUN of 73, creatinine of 1.0. The patient's procalcitonin from yesterday is 0.12 that makes 2. Procalcitonin is negative. Urinalysis is noted and the urine for legionella antigen is negative. Microbiology reveals the blood culture has no growth for 3 days and nasal MRSA is not detectable and sputum cultures are pending. Dr. Trevor Simms's note is reviewed from today. CAT scan of the chest is noted for multilobar pneumonia. CAT scan of the abdomen is negative. Dr. Mane Valverde's note is reviewed from today. We will continue the p.o. doxycycline, meropenem, Zyvox, and follow WBCs, the WBCs are down to 15,900 today from 26,000. I will check on the HIV and a CBC for tomorrow is ordered by Dr. Trevor Simms. We will follow with you. Nain Rosas MD
--- NOTE | 2017-05-13 18:58 | PN ---
DATE: 05/13/2017 SUBJECTIVE: The patient is seen lying in bed on telemetry. He feels somewhat better. He is afebrile. He has had no evidence of recurrent GI bleeding overnight and his hemoglobin remained stable. He remains off anticoagulant therapy. He was given one dose of digoxin yesterday for heart rate control. He remains in atrial fibrillation. CURRENT MEDICATIONS: Include diltiazem 60 mg q.i.d., doxycycline, DuoNeb inhaler, Lipitor 10 mg daily, metoprolol 25 mg b.i.d., meropenem, Protonix, and Zyvox. OBJECTIVE: GENERAL: He is a overweight middle-aged man. VITAL SIGNS: His blood pressure is 126/46 with a pulse of 90-100, respirations are 14. He is afebrile. HEENT: No JVD. CHEST: Diminished breath sounds at the bases with bilateral scattered rhonchi. HEART: PMI displaced laterally with heart tone is somewhat distant. Rhythm is irregularly irregular. ABDOMEN: Soft, obese, nontender, normoactive bowel sounds. EXTREMITIES: No edema. DIAGNOSTIC DATA: Morning blood work is pending. CT of the chest and abdomen was performed yesterday. This reportedly confirms moderately large pericardial effusion with bilateral pleural effusions and bilateral pulmonary airspace disease suggestive of infiltrates and there is also evidence of mild hepatomegaly, diverticulosis, and osteopenia with compression fractures. IMPRESSION: 1. Atrial fibrillation with moderate ventricular response, recent onset, not currently on anticoagulant therapy because of gastrointestinal bleed. 2. Acute gastrointestinal bleeding, hemoglobin is stable at present, source to be identified. 3. Apparent pneumonia. 4. Moderate pericardial effusion with no clear evidence of hemodynamic compromise at the present time. 5. Elevated T4 with non-detectable TSH, possible hyperthyroidism. RECOMMENDATIONS: 1. Beta-dottie therapy, we will continue at this time in addition to diltiazem for heart rate control. Digoxin will be added as well for now. 2. The GI evaluation is in progress. From a cardiac standpoint, he appeared stable to proceed with endoscopy once scheduled. 3. A repeat echocardiogram will be performed next week to monitor any signs of pericardial effusion. 4. Eventual pericardiocentesis and/or biopsy can be considered if his effusion worsens or if there is no clear evidence for his recent acute illness. 5. We will continue to follow and make further recommendations as appropriate. Kaleb Durham MD [facility] # [id number]
[2017-05-14 06:27] LABS: BASO # 0.02 K/mm3 (0.0-2.0); BASO % 0.1 % (0.0-3.0); EOS # 0.2 (0.0-0.7); GRAN # 9.86 (1.4-6.5); GRAN % 63.7 % (50.0-68.0); HEMATOCRIT 26.6 % (42.0-52.0); LYMPH # 3.7 (1.2-3.4); LYMPH % 23.7 % (22.0-35.0); MEAN CELL VOLUME 82.9 fl (80.0-105.0); MEAN CORPUSCULAR HEMOGLOBIN 27.1 pg (25.0-35.0); MEAN CORPUSCULAR HGB CONC 32.7 g/dl (31.0-37.0); MEAN PLATELET VOLUME 9.3 fl (7.0-11.0); MONO # 1.8 (0.1-0.6); MONO % 11.5 % (1.0-6.0); WHITE BLOOD COUNT 15.5 10^3/ul (4.5-11.0)
[2017-05-14] MEDS: Pantoprazole 40mg/100ml IVPB 40 MG/100 ML BAG IVPB SCH ×5 (06:32→23:54)
[2017-05-14] MEDS: Meropenem 1g/NS 100mL IVPB 1 GM/100 ML PIGGYBACK IVPB SCH ×3 (06:32→22:28)
[2017-05-14 06:50] LABS: ALB/GLOB RATIO 0.9 (1.1-1.8); ALKALINE PHOSPHATASE 72 U/L (38-126); ALT/SGPT 27 U/L (7-56); AST/SGOT 27 U/L (17-59); BILIRUBIN,TOTAL 0.5 mg/dL (0.2-1.3); BLOOD UREA NITROGEN 28 mg/dL (7-21); CALCIUM 9.1 mg/dL (8.4-10.5); CARBON DIOXIDE 28 mmol/L (21-33); CHLORIDE 98 mmol/L (95-110); GFR AFRICAN-AMERICAN > 60; GLUCOSE,RANDOM 182 mg/dL (70-110); POTASSIUM 4.4 mmol/L (3.6-5.0); SODIUM 135 mmol/L (132-148); TOTAL PROTEIN 6.8 g/dL (5.8-8.3)
[2017-05-14] MEDS: Insulin Lispro (HUMAlog) HIGH Coverage SC SCH ×4 (08:09→22:25)
--- NOTE | 2017-05-14 08:21 | CP.PCM.PN ---
Subjective - Date & Time of Evaluation Date of Evaluation: 05/14/17 Time of Evaluation: 07:00 - Subjective Subjective: Stable on 2R. No CP or SOB. V/S noted. AF. PE: Lungs: rhonchi Cor.: S1S2, irreg. Abd.: obese Ext.: no edema Neuro.: alert Labs noted: H/H = 8.7/26.6, WBC + 15,500 BC x2 NG at 3 days Objective - Vital Signs/Intake and Output Vital Signs (last 24 hours): Temp Pulse Resp BP Pulse Ox 98.8 F 95 H 20 130/72 96 05/14/17 06:00 05/14/17 06:32 05/14/17 06:00 05/14/17 06:32 05/14/17 06:00 Intake and Output: 05/14/17 05/14/17 06:59 18:59 Intake Total 440 Balance 440 - Medications Medications: Current Medications Albuterol/Ipratropium (Duoneb 3 Mg/0.5 Mg (3 Ml) Ud) 3 ml IH Q4 PRN PRN Reason: Shortness of Breath Atorvastatin Calcium (Lipitor) 10 mg PO DAILY [facility] Last Admin: 05/13/17 09:09 Dose: 10 mg Digoxin (Lanoxin) 0.25 mg PO 1400 [facility] Last Admin: 05/13/17 13:29 Dose: 0.25 mg Diltiazem HCl (Cardizem) 60 mg PO QID [facility] Last Admin: 05/13/17 21:25 Dose: 60 mg Doxycycline Hyclate (Doryx) 100 mg PO Q12 [facility] PRN Reason: Protocol Stop: 05/21/17 12:20 Last Admin: 05/13/17 21:26 Dose: 100 mg Pantoprazole Sodium (Protonix 40mg Ivpb) 40 mg in 100 mls @ 20 mls/hr IVPB .Q5H [facility] Last Admin: 05/14/17 06:32 Dose: 20 mls/hr Meropenem 1g/NS 100mL IVPB (Meropenem 1g/Ns 100ml Ivpb) 1 gm in 100 mls @ 100 mls/hr IVPB Q8 [facility] PRN Reason: Protocol Stop: 05/20/17 14:01 Last Admin: 05/14/17 06:32 Dose: 100 mls/hr Insulin Human Lispro (Humalog High) 0 units SC ACHS [facility] PRN Reason: Protocol Last Admin: 05/13/17 22:41 Dose: Not Given Linezolid (Zyvox) 600 mg PO BID [facility] PRN Reason: Protocol Stop: 05/21/17 12:18 Last Admin: 05/13/17 17:25 Dose: 600 mg Metoprolol Tartrate (Lopressor) 25 mg PO BRKDIN [facility] Last Admin: 05/14/17 06:32 Dose: 25 mg - Labs Labs: 05/14/17 06:00 05/14/17 06:00 PT 12.3 Seconds (9.9-11.8) H 05/10/17 08:59 INR 1.14 (0.93-1.08) H 05/10/17 08:59 APTT 45.7 Seconds (23.7-30.8) H 05/12/17 05:00 Assessment and Plan - Assessment and Plan (Free Text) Assessment: CP AF Pneumonia GIB Leukocytosis Pericardial Effusion R/O thyroid disease: possible hyperthyoidism. CAD: occluded RCA, mild LAD and C.A disease HLD Obesity Former Smoker Diverticulosis Osteopenia Compression Fractures Plan: Continue current cardiac meds. OK for EGD. Mildly increased cardiac risk. Repeat echocardiogram AB No A/C for now Continue tel. Will follow. As per ID, GI, Dr. Simms Thyroid w/u.
[2017-05-14] MEDS ORDERED: Levalbuterol 0.63 MG/3 ML Inhal Soln UD IH PRN (08:59)
--- NOTE | 2017-05-14 09:35 | PN ---
SUBJECTIVE: The patient was seen and examined at bedside on the telemetry blancas. No acute events overnight. He remains afebrile and hemodynamically stable. The patient denies any chest pain, palpitations, fevers, chills, or rigors. He furthermore denies any further blood per rectum or dark-tarry stools. He is tolerating his liquid-diet and overall offers no complaints. OBJECTIVE: VITAL SIGNS: Temperature 98.8, pulse 95, blood pressure 130/72, respiratory rate 20, and oxygen saturation 96% on 2 L nasal cannula. GENERAL: Obese man, lying in bed, in no apparent distress. HEENT: PERRL. EOMI. No scleral icterus. Mild conjunctival pallor is noted. NECK: No JVD. No bruits. LUNGS: Decreased breath sounds to the bases with few scattered rhonchi. CARDIOVASCULAR: Irregularly irregular. No friction rub. ABDOMEN: Obese, normal active bowel sounds, soft, nontender, nondistended. EXTREMITIES: Trace lower extremity edema bilaterally. NEUROLOGIC: Awake, alert, and oriented x3. No focal motor deficits. LABORATORY DATA: WBC 15.5 with 64% neutrophils, hemoglobin 8.7, hematocrit 27, platelets 450. Chemistry reviewed and largely unremarkable. ASSESSMENT: The patient is a 66-year-old man with past medical history of CAD, hyperlipidemia and COPD who presented to [facility] with a several day history of dyspnea and cough and who was initially admitted to the ICU for new onset AFib with RVR and management of community-acquired pneumonia who is now status post transfer out of the ICU and maintained on the telemetry blancas for continued management of new onset AFib, community-acquired pneumonia, pericardial effusion and whose hospital course was complicated by upper GI bleed. PLAN: 1. Sepsis secondary to community-acquired pneumonia, resolving. Input from Dr. Rosas of infectious disease noted and appreciated. The patient remains on Doxycycline 100 mg p.o. q.12 hours, Meropenem 1 g IV q. 8 hours and Linezolid 600 mg p.o. b.i.d. 2. Upper GI bleed. The patient remains off heparin and with stable H/H. Input from Dr. Valverde noted and appreciated. The patient denies any further overt blood loss. Arrangements will be made for an EGD when the patient is stable from the cardiac perspective. 3. AFib with RVR (new onset). Input from Dr. Chan of cardiology noted and greatly appreciated. We will continue to hold anticoagulation in the setting of upper GI bleed. At present the patient remains rate controlled. Continue with Diltiazem 60 mg p.o. q. 6 hours, Lopressor 25 mg p.o. b.i.d., and Digoxin 0.25 mg p.o. daily. 4. Pericardial effusion with unclear etiology. The patient remains hemodynamically stable. Repeat TTE pending to reassess 5. CAD, status post PCI. The patient remains hemodynamically stable and chest pain free. Continue with Lipitor 10 mg p.o. daily and Lopressor 25 mg p.o. b.i.d. Antiplatelet and anticoagulation therapy is being held in the setting of an upper GI bleed. 6. COPD. The patient remains with stable respiratory status. Continue with supplemental oxygen and bronchodilators as needed. Dr. Gill of pulmonary and critical care management has been consulted for further evaluation and recommendations. 7. Prophylaxis. The patient remains on the Protonix drip, thus GI prophylaxis is not indicated. Continue Venodyne for DVT prophylaxis. CODE STATUS: Full code. Trevor Simms MD MTDD
--- NOTE | 2017-05-14 10:05 | CON ---
DATE: 05/14/2017 PULMONARY CONSULTATION REASON FOR CONSULTATION: Chronic obstructive pulmonary disease. REFERRING PHYSICIAN: Trevor Simms MD HISTORY OF PRESENT ILLNESS: The patient is a 66-year-old male, with past medical history significant for chronic obstructive pulmonary disease, coronary artery disease and diabetes mellitus, who originally presented to [facility]-- on 05/10/2017--with a three-day history of worsening shortness of breath at rest and dyspnea on exertion. The patient also states to a minimal cough with no sputum production. In addition to the above, the patient did present with some midsternal chest discomfort. No history of coughing up of blood. No history of chest pain - made worse with deep respirations. The patient did present to the emergency room with low grade fevers (99.7). No history of chills or infectious exposure. No history of night sweats, weight loss or appetite change prior to the above events. No history of leg or calf pains. No history of syncope or diaphoresis. No history of recent travel or trauma. REVIEW OF SYSTEMS: No history of nausea, vomiting or diarrhea. No acute urinary symptoms. No new neurologic or musculoskeletal complaints. Rest of the review of systems is negative. ALLERGIES: NO KNOWN ALLERGIES. SOCIAL HISTORY: Positive for former tobacco usage. No alcohol. FAMILY HISTORY: No inheritable diseases. HOME MEDICATIONS: Include Toprol, Claritin, lisinopril, Breo Ellipta, calcium, Lipitor, Ecotrin and ProAir. PHYSICAL EXAMINATION GENERAL: The patient appears comfortable at rest. He is not short of breath. He is not using accessory muscles for breathing. VITAL SIGNS: Temperature is 98.8, pulse on the monitor is 87, respiratory rate is 18, and blood pressure is 130/72. Oxygen saturation on nasal cannula is 96%. HEENT: Normocephalic and atraumatic. NECK: No JVD. CARDIOVASCULAR: Positive S1 and S2. No S3 gallop. LUNGS: Decreased breath sounds at the bases. Minimal bilateral rhonchi. No wheezing. EXTREMITIES: Positive for edema. No cyanosis and no clubbing. Calves are nontender to palpation. GASTROINTESTINAL: Abdomen is soft, nontender and nondistended. Bowel sounds are positive. SKIN: No acute rash. NEUROLOGIC: Exam is limited at the present time. PERTINENT LABORATORY DATA: CAT scan of the chest was done on 05/12/2017. There are small bilateral pleural effusions noted, with adjacent airspace disease. There is also a moderately large pericardial effusion. CBC: White count of 15.5, hemoglobin of 8.7, hematocrit of 26.6, and platelets of 450. Initial white count - 26.8. Procalcitonin was done on 05/11/2017. It is negative at 0.22. IMPRESSION 1. Chronic obstructive pulmonary disease. 2. Acute bronchitis. 3. Rule out basilar pneumonia. 4. Coronary artery disease. 5. Rapid atrial fibrillation. 6. Pericardial effusion. PLAN: The patient presented to [facility] - originally on 05/10/2017 - with main complaints of increasing shortness of breath at rest and dyspnea on exertion for the previous 3 days. In addition, he also stated to a minimal cough and some mid sternal chest discomfort. He was thus admitted for additional evaluation. I did review the CT scan of the chest as above. There are small bilateral pleural effusions noted. As above, adjacent to the pleural effusions, there is a airspace disease. It is difficult to tell( at this time) whether these infiltrates represent atelectasis or true pneumonia. Procalcitonin done was negative. However, I would continue with the current antibiotic coverage as per infectious disease. Input by Dr. Rosas is noted. The temperatures have resolved. The leukocytosis is resolving. On physical exam, there is only mild bronchospasm noted. There is no significant alveolar-arterial gradient. I will start the patient on Xopenex nebulizer treatments and inhaled Pulmicort. He is on Breo Ellipta at home. Cardiology evaluation is also noted. The ventricular rate is much more controlled at this point in time. Clinical status of the patient is significantly improved - compared to the initial presentation. I did discuss the above with Dr. Simms at length. Thank you very much for this pulmonary consultation. Derek Gill MD Y[facility]
--- NOTE | 2017-05-14 12:17 | CP.PCM.PN ---
Subjective - Date & Time of Evaluation Date of Evaluation: 05/14/17 Time of Evaluation: 11:00 - Subjective Subjective: Feeling better, breathing better, currently has no cough, no fevers overnight, feels he has more energy. Objective - Vital Signs/Intake and Output Vital Signs (last 24 hours): Temp Pulse Resp BP Pulse Ox 98.8 F 95 H 20 130/72 96 05/14/17 06:00 05/14/17 06:32 05/14/17 06:00 05/14/17 06:32 05/14/17 06:00 Intake and Output: 05/14/17 05/14/17 06:59 18:59 Intake Total 440 Balance 440 - Medications Medications: Current Medications Albuterol/Ipratropium (Duoneb 3 Mg/0.5 Mg (3 Ml) Ud) 3 ml IH Q4 PRN PRN Reason: Shortness of Breath Atorvastatin Calcium (Lipitor) 10 mg PO DAILY [facility] Last Admin: 05/13/17 09:09 Dose: 10 mg Digoxin (Lanoxin) 0.25 mg PO 1400 [facility] Last Admin: 05/13/17 13:29 Dose: 0.25 mg Diltiazem HCl (Cardizem) 60 mg PO QID [facility] Last Admin: 05/13/17 21:25 Dose: 60 mg Doxycycline Hyclate (Doryx) 100 mg PO Q12 [facility] PRN Reason: Protocol Stop: 05/21/17 12:20 Last Admin: 05/13/17 21:26 Dose: 100 mg Pantoprazole Sodium (Protonix 40mg Ivpb) 40 mg in 100 mls @ 20 mls/hr IVPB .Q5H [facility] Last Admin: 05/14/17 06:32 Dose: 20 mls/hr Meropenem 1g/NS 100mL IVPB (Meropenem 1g/Ns 100ml Ivpb) 1 gm in 100 mls @ 100 mls/hr IVPB Q8 [facility] PRN Reason: Protocol Stop: 05/20/17 14:01 Last Admin: 05/14/17 06:32 Dose: 100 mls/hr Insulin Human Lispro (Humalog High) 0 units SC ACHS [facility] PRN Reason: Protocol Last Admin: 05/14/17 08:09 Dose: 2 units Linezolid (Zyvox) 600 mg PO BID [facility] PRN Reason: Protocol Stop: 05/21/17 12:18 Last Admin: 05/13/17 17:25 Dose: 600 mg Metoprolol Tartrate (Lopressor) 25 mg PO BRKDIN [facility] Last Admin: 05/14/17 06:32 Dose: 25 mg - Labs Labs: 05/14/17 06:00 05/14/17 06:00 PT 12.3 Seconds (9.9-11.8) H 05/10/17 08:59 INR 1.14 (0.93-1.08) H 05/10/17 08:59 APTT 45.7 Seconds (23.7-30.8) H 05/12/17 05:00 - Constitutional Appears: Non-toxic, No Acute Distress - Head Exam Head Exam: NORMAL INSPECTION - ENT Exam ENT Exam: Mucous Membranes Moist - Neck Exam Neck Exam: absent: Meningismus - Respiratory Exam Respiratory Exam: Decreased Breath Sounds (at the bases) - Cardiovascular Exam Cardiovascular Exam: +S1, +S2 - GI/Abdominal Exam GI & Abdominal Exam: Soft. absent: Tenderness Assessment and Plan - Assessment and Plan (Free Text) Plan: Assessment Severe sepsis with acute renal failure (resolved) due to bilateral lower lobe community-acquired pneumonia CAD S/P PCI new onset atrial fibrillation COPD dyslipidemia morbid obesity with BMI 41 HTN DM Plan Continue Zyvox, Doxycycline, Merrem day 3; blood cx are negative; sputum cx show oropharyngeal contamination target 4-7 days of therapy will continue to monitor clinically
[2017-05-14] MEDS: Digoxin 250 mcg (0.25 mg) Tab PO SCH (13:02)
[2017-05-14] MEDS: Levalbuterol 0.63 MG/3 ML Inhal Soln UD IH SCH ×2 (13:40→20:33)
--- NOTE | 2017-05-14 19:29 | PN ---
DATE: 05/14/2017 SUBJECTIVE: The patient is lying in bed. He denies any further melena, but complains of just generalized weakness. He denies any abdominal pain, nausea, or vomiting. PHYSICAL EXAMINATION: VITAL SIGNS: Reveal temperature of 98.4, blood pressure 129/72, heart rate of 105. HEENT: Reveal sclerae to be white. Conjunctivae pale. NECK: Supple. CHEST: Reveal scattered rhonchi at the bases. HEART: Exam reveals a irregularly irregular rate. ABDOMEN: Soft, nontender. EXTREMITY: Show no edema. LABORATORY DATA: Reveal hemoglobin dropping slightly 3.7, white blood cell count 15.5, BUN 28, creatinine 0.8, blood sugar of 182. AST, ALT, alk phos were all normal. IMPRESSION: This is a 66-year-old male with new-onset atrial fibrillation, GI bleeding with melena, anemia, sepsis multilobar pneumonia, pericardial effusion. The patient's bleeding appears to have stopped. I have reviewed the note by cardiology Dr. Chan, who noted that the patient is okay to have an upper endoscopy. RECOMMENDATIONS 1. We will advance the patient's diet. 2. Continue Protonix drip. 3. I will schedule the patient for a upper endoscopy for the morning. Thank you. Mane Valverde MD
[2017-05-14] MEDS: Budesonide 0.5 mg/2 ml Inhal Susp UD IH SCH (20:33)
[2017-05-15] MEDS: Levalbuterol 0.63 MG/3 ML Inhal Soln UD IH SCH ×4 (02:36→19:08)
[2017-05-15] MEDS: Meropenem 1g/NS 100mL IVPB 1 GM/100 ML PIGGYBACK IVPB SCH ×3 (05:00→21:20)
[2017-05-15] MEDS: Pantoprazole 40mg/100ml IVPB 40 MG/100 ML BAG IVPB SCH ×2 (05:31→10:09)
--- NOTE | 2017-05-15 07:46 | CP.PCM.PN ---
Subjective - Date & Time of Evaluation Date of Evaluation: 05/15/17 Time of Evaluation: 07:00 - Subjective Subjective: Stable on 2R. No CP or SOB. V/S noted. AF. PE: Lungs: rhonchi Cor.: S1S2, irreg. Abd.: obese Ext.: no edema Neuro.: alert I/O = 980/800 Labs noted. BC x2 NG at 4 days Echo done: prelim: no change in moderate peric. effusion. Full report to follow. Objective - Vital Signs/Intake and Output Vital Signs (last 24 hours): Temp Pulse Resp BP Pulse Ox 99.2 F 105 H 20 125/75 95 05/15/17 06:00 05/15/17 06:00 05/15/17 06:00 05/15/17 06:00 05/15/17 06:00 Intake and Output: 05/15/17 05/15/17 06:59 18:59 Intake Total 440 Output Total 500 Balance -60 - Medications Medications: Current Medications Atorvastatin Calcium (Lipitor) 10 mg PO DAILY [facility] Last Admin: 05/14/17 09:40 Dose: 10 mg Budesonide (Pulmicort Respules) 0.5 mg IH [id number] [facility] Last Admin: 05/14/17 20:33 Dose: 0.5 mg Digoxin (Lanoxin) 0.25 mg PO 1400 [facility] Last Admin: 05/14/17 13:02 Dose: 0.25 mg Diltiazem HCl (Cardizem) 60 mg PO QID [facility] Last Admin: 05/14/17 22:29 Dose: 60 mg Doxycycline Hyclate (Doryx) 100 mg PO Q12 [facility] PRN Reason: Protocol Stop: 05/21/17 12:20 Last Admin: 05/14/17 22:29 Dose: 100 mg Pantoprazole Sodium (Protonix 40mg Ivpb) 40 mg in 100 mls @ 20 mls/hr IVPB .Q5H [facility] Last Admin: 05/15/17 05:31 Dose: 20 mls/hr Meropenem 1g/NS 100mL IVPB (Meropenem 1g/Ns 100ml Ivpb) 1 gm in 100 mls @ 100 mls/hr IVPB Q8 [facility] PRN Reason: Protocol Stop: 05/20/17 14:01 Last Admin: 05/15/17 05:00 Dose: 100 mls/hr Insulin Human Lispro (Humalog High) 0 units SC ACHS [facility] PRN Reason: Protocol Last Admin: 05/14/17 22:25 Dose: Not Given Levalbuterol HCl (Xopenex) 0.63 mg IH [id number] [facility] Last Admin: 05/15/17 02:36 Dose: 0.63 mg Levalbuterol HCl (Xopenex) 0.63 mg IH Q2 PRN PRN Reason: Shortness of Breath Linezolid (Zyvox) 600 mg PO BID [facility] PRN Reason: Protocol Stop: 05/21/17 12:18 Last Admin: 05/14/17 17:48 Dose: 600 mg Metoprolol Tartrate (Lopressor) 25 mg PO BRKDIN [facility] Last Admin: 05/14/17 17:47 Dose: 25 mg - Labs Labs: 05/14/17 06:00 05/14/17 06:00 PT 12.3 Seconds (9.9-11.8) H 05/10/17 08:59 INR 1.14 (0.93-1.08) H 05/10/17 08:59 APTT 45.7 Seconds (23.7-30.8) H 05/12/17 05:00 Assessment and Plan - Assessment and Plan (Free Text) Assessment: CP AF Pneumonia GIB Leukocytosis Pericardial Effusion R/O thyroid disease: possible hyperthyoidism. CAD: occluded RCA, mild LAD and C.A disease HLD Obesity Former Smoker Diverticulosis Osteopenia Compression Fractures Plan: EGD today. Continue current cardiac meds: PO digoxin, diltiazem, metoprolol. Check dig. level in AM. AB No A/C for now Continue tel. Will follow. As per SONU HERNANDEZ Dr. Padkowsky Thyroid w/u.
[2017-05-15] MEDS: Budesonide 0.5 mg/2 ml Inhal Susp UD IH SCH ×2 (07:48→19:08)
[2017-05-15 08:35] LABS: BASO # 0.02 K/mm3 (0.0-2.0); BASO % 0.1 % (0.0-3.0); EOS # 0.2 (0.0-0.7); EOS % 1.5 % (1.5-5.0); GRAN # 10.77 (1.4-6.5); GRAN % 67.7 % (50.0-68.0); HEMATOCRIT 26.7 % (42.0-52.0); LYMPH # 3.2 (1.2-3.4); MEAN CELL VOLUME 83.2 fl (80.0-105.0); MEAN CORPUSCULAR HEMOGLOBIN 27.4 pg (25.0-35.0); MEAN PLATELET VOLUME 8.9 fl (7.0-11.0); MONO # 1.7 (0.1-0.6); MONO % 10.7 % (1.0-6.0); RED CELL DISTRIBUTION WIDTH 13.9 % (11.5-14.5); WHITE BLOOD COUNT 15.9 10^3/ul (4.5-11.0)
--- NOTE | 2017-05-15 08:37 | CARD ---
APPROVED REPORT EXAM: LIMITED Two-dimensional and M-mode echocardiogram. Other Information Quality : AverageRhythm : INDICATION F/U STUDY...SIZE OF JOVON-EFFUSION/COMPARISON WITH PRIOR PERICARDIAL EFFUSION There is a moderate pericardial effusion, unchanged from prior study (05/10/17). <Conclusion> There is a moderate pericardial effusion, unchanged from prior study (05/10/17).
[2017-05-15 08:47] LABS: ALB/GLOB RATIO 0.9 (1.1-1.8); ALKALINE PHOSPHATASE 71 U/L (38-126); ALT/SGPT 27 U/L (7-56); AST/SGOT 32 U/L (17-59); BILIRUBIN,TOTAL 0.6 mg/dL (0.2-1.3); BLOOD UREA NITROGEN 23 mg/dL (7-21); CALCIUM 9.1 mg/dL (8.4-10.5); CARBON DIOXIDE 27 mmol/L (21-33); CHLORIDE 99 mmol/L (95-110); GFR AFRICAN-AMERICAN > 60; GLUCOSE,RANDOM 180 mg/dL (70-110); POTASSIUM 4.3 mmol/L (3.6-5.0); SODIUM 135 mmol/L (132-148); TOTAL PROTEIN 6.8 g/dL (5.8-8.3)
[2017-05-15] MEDS: Insulin Lispro (HUMAlog) HIGH Coverage SC SCH ×4 (10:08→21:55)
--- NOTE | 2017-05-15 10:13 | PN ---
PULMONARY NOTE DATE: SUBJECTIVE: The patient appears comfortable this morning. He is not short of breath at rest. OBJECTIVE: VITAL SIGNS: Temperature is 99.2, pulse on the monitor is 91, respirations 18, blood pressure 125/75. Oxygen saturation on nasal cannula is 95-100%. HEENT: Normocephalic, atraumatic. No JVD. CARDIOVASCULAR: Positive S1, S2. No S3. LUNGS: Decreased breath sounds at the bases. Much less rhonchi. No wheezing. EXTREMITIES: Positive for edema. No cyanosis, no clubbing. Calves are nontender to palpation. GASTROINTESTINAL: Abdomen is soft, nontender and nondistended. Bowel sounds are positive. SKIN: No acute rash. NEUROLOGIC: Exam limited at the present time. IMPRESSION 1. Chronic obstructive pulmonary disease. 2. Acute bronchitis. 3. Rule out basilar pneumonia. 4. Coronary artery disease. 5. Rapid atrial fibrillation. 6. Pericardial effusion. PLAN: The patient appears very comfortable this morning. He is not short of breath at rest. He states he is feeling much better overall. On physical exam, his bronchospasm is much less. In addition, the oxygen saturation on nasal cannula is 95-100%. I will continue the current nebulizer treatments and inhaled steroids for now. I would continue with the antibiotic coverage as per infectious disease. Input by Dr. Stokes is noted. Cardiology and GI evaluations also noted. Clinical status of the patient is certainly improved overall. I will discuss the above with Dr. Simms. Derek Gill MD MTDD
--- NOTE | 2017-05-15 10:59 | PN ---
SUBJECTIVE: The patient was seen and examined at bedside on the telemetry blancas. No acute events overnight. He remains afebrile and hemodynamically stable. There was no further reports of blood per rectum or dark-tarry stools. This morning the patient is pending EGD with Dr. Valverde. Otherwise, he feels well and his only complaint is that of some discomfort to his left upper extremity at a prior IV site. OBJECTIVE: VITAL SIGNS: Temperature 99.2, pulse 105, blood pressure 125/75, respiratory rate 20, oxygen saturation 95% on 2 L nasal cannula. GENERAL: Obese man, lying in bed, in no apparent distress. HEENT: PERRL. EOMI. No scleral icterus. Mild conjunctival pallor is noted. NECK: No JVD. No bruits. LUNGS: Decreased breath sounds to the bases with few scattered rhonchi. CARDIOVASCULAR: Irregularly irregular. No friction rub. ABDOMEN: Obese, normal active bowel sounds, soft, nontender, nondistended. EXTREMITIES: No edema. Left upper extremity with erythema and mild edema to the hand and mid forearm. NEUROLOGIC: Awake, alert, and oriented x3. No focal motor deficits. LABORATORY DATA: WBC 15.9 with 67% neutrophils, hemoglobin 8.8, hematocrit 27, platelets 450. Chemistry reviewed and largely unremarkable. DIAGNOSTIC STUDIES: Transthoracic echocardiogram demonstrates a moderate pericardial effusion, unchanged from prior study. ASSESSMENT: The patient is a 66-year-old man with past medical history of CAD, hyperlipidemia and COPD who presented to [facility] with a several day history of dyspnea and cough and who was initially admitted to the CCU new onset AFib with RVR and community acquired pneumonia who is now s/p transfer out of the CCU and maintained on the telemetry blancas for continued management of new onset AFib, community-acquired pneumonia, pericardial effusion and whose hospital course was complicated by an upper GI bleed who is presently pending EGD. PLAN: 1. Sepsis secondary to community-acquired pneumonia, resolving. Input from Dr. Rosas of infectious disease noted and appreciated. The patient remains on Doxycycline 100 mg p.o. q. 12 hours, Meropenem 1 g IV q. 8 hours and Linezolid 600 mg p.o. b.i.d. 2. Upper GI bleed. The patient remains off heparin and with stable H/H and is pending EGD with Dr. Valverde later today. 3. AFib with RVR (new onset). Input from Dr. Chan of cardiology noted and greatly appreciated. We will continue to hold anticoagulation in the setting of upper GI bleed pending EGD results. The patient remains rate controlled. Continue with Diltiazem 60 mg p.o. q.i.d., Lopressor 25 mg p.o. b.i.d. and Digoxin 0.25 mg p.o. daily. 4. Pericardial effusion with unclear etiology. The patient remains hemodynamically stable and a repeat TTE demonstrated no change in pericardial effusion as compared to prior study. 5. CAD s/p PCI. The patient remains hemodynamically stable and chest pain free. Continue with medications as above including Lipitor 10 mg p.o. daily and Lopressor 25 mg p.o. b.i.d. Antiplatelet and anticoagulation therapy are being held in the setting of an upper GI bleed. 6. COPD. The patient remains with stable respiratory status. Input from Dr. Gill noted and greatly appreciated. Continue with supplemental oxygen, bronchodilators and inhaled corticosteroids as needed. 7. Prophylaxis. The patient remains on the Protonix drip, thus GI prophylaxis is not indicated. Continue with Venodyne for DVT prophylaxis. CODE STATUS: FULL CODE. Trevor Simms MD [facility]WORK[facility]
--- NOTE | 2017-05-15 12:43 | CP.PCM.PN ---
Subjective - Date & Time of Evaluation Date of Evaluation: 05/15/17 Time of Evaluation: 09:55 - Subjective Subjective: Patient is starting to feel better, no cough, better breathing, not in distress , no fevers. Objective - Vital Signs/Intake and Output Vital Signs (last 24 hours): Temp Pulse Resp BP Pulse Ox 99.2 F 105 H 20 125/75 95 05/15/17 06:00 05/15/17 06:00 05/15/17 06:00 05/15/17 06:00 05/15/17 06:00 Intake and Output: 05/15/17 05/15/17 06:59 18:59 Intake Total 440 Output Total 500 Balance -60 - Medications Medications: Current Medications Atorvastatin Calcium (Lipitor) 10 mg PO DAILY [facility] Last Admin: 05/14/17 09:40 Dose: 10 mg Budesonide (Pulmicort Respules) 0.5 mg IH [id number] [facility] Last Admin: 05/14/17 20:33 Dose: 0.5 mg Digoxin (Lanoxin) 0.25 mg PO 1400 [facility] Last Admin: 05/14/17 13:02 Dose: 0.25 mg Diltiazem HCl (Cardizem) 60 mg PO QID [facility] Last Admin: 05/14/17 22:29 Dose: 60 mg Doxycycline Hyclate (Doryx) 100 mg PO Q12 [facility] PRN Reason: Protocol Stop: 05/21/17 12:20 Last Admin: 05/14/17 22:29 Dose: 100 mg Pantoprazole Sodium (Protonix 40mg Ivpb) 40 mg in 100 mls @ 20 mls/hr IVPB .Q5H [facility] Last Admin: 05/15/17 05:31 Dose: 20 mls/hr Meropenem 1g/NS 100mL IVPB (Meropenem 1g/Ns 100ml Ivpb) 1 gm in 100 mls @ 100 mls/hr IVPB Q8 [facility] PRN Reason: Protocol Stop: 05/20/17 14:01 Last Admin: 05/15/17 05:00 Dose: 100 mls/hr Insulin Human Lispro (Humalog High) 0 units SC ACHS [facility] PRN Reason: Protocol Last Admin: 05/14/17 22:25 Dose: Not Given Levalbuterol HCl (Xopenex) 0.63 mg IH [id number] [facility] Last Admin: 05/15/17 02:36 Dose: 0.63 mg Levalbuterol HCl (Xopenex) 0.63 mg IH Q2 PRN PRN Reason: Shortness of Breath Linezolid (Zyvox) 600 mg PO BID [facility] PRN Reason: Protocol Stop: 05/21/17 12:18 Last Admin: 05/14/17 17:48 Dose: 600 mg Metoprolol Tartrate (Lopressor) 25 mg PO BRKDIN [facility] Last Admin: 05/14/17 17:47 Dose: 25 mg - Labs Labs: 05/14/17 06:00 05/14/17 06:00 PT 12.3 Seconds (9.9-11.8) H 05/10/17 08:59 INR 1.14 (0.93-1.08) H 05/10/17 08:59 APTT 45.7 Seconds (23.7-30.8) H 05/12/17 05:00 - Constitutional Appears: Non-toxic, No Acute Distress - Head Exam Head Exam: NORMAL INSPECTION - Neck Exam Neck Exam: absent: Meningismus - Respiratory Exam Respiratory Exam: Decreased Breath Sounds - Cardiovascular Exam Cardiovascular Exam: +S1, +S2 - GI/Abdominal Exam GI & Abdominal Exam: Soft. absent: Tenderness Assessment and Plan - Assessment and Plan (Free Text) Plan: Assessment Severe sepsis with acute renal failure (resolved) due to bilateral lower lobe community-acquired pneumonia CAD S/P PCI new onset atrial fibrillation COPD dyslipidemia morbid obesity with BMI 41 HTN DM Plan Continue Zyvox, Doxycycline, Merrem day 4; blood cx are negative; sputum cx show oropharyngeal contamination target 4-7 days of therapy will continue to follow clinically
[2017-05-15] MEDS ORDERED: Propofol 10 mg/ml Inj (20 ML) ONE (13:17)
[2017-05-15] MEDS: Digoxin 250 mcg (0.25 mg) Tab PO SCH (14:51)
[2017-05-15] MEDS: Sodium Chloride 0.9% 1,000 ML IV SCH (14:54)
[2017-05-15] MEDS: Pantoprazole 40 mg EC Tab PO SCH (15:06)
[2017-05-15] MEDS: Sucralfate 1 gm/10 ml Oral Susp UD PO SCH ×2 (17:27→21:19)
[2017-05-16] MEDS: Sodium Chloride 0.9% 1,000 ML IV SCH ×3 (00:15→21:18)
[2017-05-16] MEDS: Levalbuterol 0.63 MG/3 ML Inhal Soln UD IH SCH ×4 (02:33→19:40)
[2017-05-16] MEDS: Pantoprazole 40 mg EC Tab PO SCH ×2 (05:33→16:58)
[2017-05-16] MEDS: Meropenem 1g/NS 100mL IVPB 1 GM/100 ML PIGGYBACK IVPB SCH ×3 (05:33→21:09)
[2017-05-16] MEDS: Sucralfate 1 gm/10 ml Oral Susp UD PO SCH ×4 (05:33→21:09)
[2017-05-16 06:43] LABS: BASO # 0.04 K/mm3 (0.0-2.0); BASO % 0.2 % (0.0-3.0); EOS # 0.2 (0.0-0.7); EOS % 1.2 % (1.5-5.0); GRAN # 11.91 (1.4-6.5); GRAN % 69.6 % (50.0-68.0); HEMATOCRIT 26.4 % (42.0-52.0); LYMPH # 3.3 (1.2-3.4); LYMPH % 19.3 % (22.0-35.0); MEAN CELL VOLUME 82.8 fl (80.0-105.0); MEAN CORPUSCULAR HGB CONC 32.6 g/dl (31.0-37.0); MEAN PLATELET VOLUME 8.9 fl (7.0-11.0); MONO # 1.7 (0.1-0.6); MONO % 9.7 % (1.0-6.0); RED CELL DISTRIBUTION WIDTH 14.1 % (11.5-14.5); WHITE BLOOD COUNT 17.1 10^3/ul (4.5-11.0)
[2017-05-16 06:59] LABS: ALB/GLOB RATIO 0.8 (1.1-1.8); ALKALINE PHOSPHATASE 66 U/L (38-126); ALT/SGPT 21 U/L (7-56); AST/SGOT 30 U/L (17-59); BILIRUBIN,TOTAL 0.6 mg/dL (0.2-1.3); BLOOD UREA NITROGEN 19 mg/dL (7-21); CALCIUM 8.9 mg/dL (8.4-10.5); CARBON DIOXIDE 28 mmol/L (21-33); CHLORIDE 101 mmol/L (95-110); GFR AFRICAN-AMERICAN > 60; GLUCOSE,RANDOM 146 mg/dL (70-110); POTASSIUM 4.1 mmol/L (3.6-5.0); SODIUM 136 mmol/L (132-148); TOTAL PROTEIN 6.4 g/dL (5.8-8.3)
[2017-05-16] MEDS: Budesonide 0.5 mg/2 ml Inhal Susp UD IH SCH ×2 (07:54→19:40)
[2017-05-16] MEDS: Insulin Lispro (HUMAlog) HIGH Coverage SC SCH ×4 (08:12→21:30)
--- NOTE | 2017-05-16 09:43 | PN ---
DATE: 05/16/2017 PULMONARY PROGRESS NOTE SUBJECTIVE: The patient appears very comfortable at rest. He is not short of breath. PHYSICAL EXAMINATION: VITAL SIGNS: Temperature is 98.6, pulse on the monitor is 94, respiratory rate is 18, and blood pressure is 117/44. Oxygen saturation on nasal cannula is 97%. HEENT: Normocephalic and atraumatic. NECK: No JVD. CARDIOVASCULAR: Positive S1 and S2. No S3. LUNGS: Decreased breath sounds at the bases. Very minimal rhonchi. No wheezing. EXTREMITIES: Positive for edema. No cyanosis and no clubbing. Calves are nontender to palpation. GASTROINTESTINAL: Abdomen is soft, nontender and nondistended. Bowel sounds are positive. SKIN: No acute rash. NEUROLOGIC: Exam limited at the present time. IMPRESSION 1. Chronic obstructive pulmonary disease. 2. Acute bronchitis. 3. Rule out basilar pneumonia. 4. Coronary artery disease. 5. Rapid atrial fibrillation. 6. Pericardial effusion. PLAN: The patient appears very comfortable this morning. He is not short of breath at rest. He states he is feeling much better overall. On physical exam, his bronchospasm continues to resolve. In addition, the oxygen saturation on nasal cannula is now 97% to 99%. I will continue the current nebulizer treatments and inhaled steroids for now. I would continue with the antibiotic coverage as per infectious disease. Temperatures have fully resolved. There remains a mild leukocytosis. I would continue with the cardiology and GI evaluations. Inputs are noted. Clinical status of the patient is much improved overall. I will discuss the above with the attending physician. The patient is advised this morning to be out of bed as much as possible today. He agrees. Derek Gill MD [facility]
--- NOTE | 2017-05-16 09:58 | PN ---
SUBJECTIVE: The patient was seen and examined at bedside on the telemetry blanc[facility]. No acute events overnight. He remains afebrile and hemodynamically stable. The patient is s/p EGD with Dr. Valverde which demonstrated gastric ulcers with adherent clot but no active bleed. This morning the patient states he feels okay and offers no complaints. OBJECTIVE: VITAL SIGNS: Temperature 98.6, pulse 96, blood pressure 138/88, respiratory rate 20, oxygen saturation 97% on 2 L nasal cannula. GENERAL: Obese man lying in bed in no apparent distress. HEENT: PERRL. EOMI. No scleral icterus. Mild conjunctival pallor is noted. NECK: No JVD. No bruits. LUNGS: Decreased breath sounds at the bases, otherwise clear. CARDIOVASCULAR: Irregularly irregular. No friction rub. ABDOMEN: Obese, normoactive bowel sounds, soft, nontender, nondistended. EXTREMITIES: No edema. Left upper extremity with improving erythema and edema to the hand and mid forearm. NEUROLOGIC: Awake, alert, and oriented x3. No focal motor deficits. LABORATORY DATA: WBC 17 with 69% neutrophils, hemoglobin 8.6, hematocrit 26, platelets 449. Chemistry reviewed and unremarkable. ASSESSMENT: The patient is a 66-year-old man with past medical history of CAD, hyperlipidemia and COPD who presented to [facility] with a several day history of dyspnea and cough and who was initially admitted to the CCU for new onset AFib with RVR and community acquired pneumonia who is now s/p transfer to the telemetry [facility] with continued management of AFib, community- acquired pneumonia, pericardial effusion and who is s/p EGD which demonstrated gastric ulcers with adherent clot formation. PLAN: 1. Sepsis secondary to community-acquired pneumonia, resolving. Input from Dr. Stokes of infectious disease noted and appreciated and the patient remains on Doxycycline 100 mg p.o. q. 12 hours, Meropenem 1 g IV q. 8 hours and Linezolid 600 mg p.o. b.i.d. 2. Upper GI bleed s/p EGD which demonstrated gastric ulcers with adherent clot. Input from Dr. Valverde noted and greatly appreciated and Carafate 1 g p.o. q.i.d. has been added to Protonix 40 mg p.o. b.i.d. H/H remains stable with no further reports of blood per rectum or dark, tarry stools. We will continue to monitor CBC daily. The patient must refrain from NSAIDs and antiplatelet or anticoagulation therapy for at least 3 weeks. 3. AFib with RVR (new onset). Input from Dr. Chan of cardiology noted and appreciated. As above given the findings on EGD, we will hold anticoagulation therapy for 3 weeks. The patient remains rate controlled on Diltiazem 60 mg p.o. q.i.d., Lopressor 25 mg p.o. b.i.d. and Digoxin 0.25 mg p.o. daily. 4. Pericardial effusion with unclear etiology. Repeat TTE demonstrates no change and the patient remains hemodynamically stable. 5. CAD s/p PCI. Continue with Lipitor 10 mg p.o. daily and Lopressor 25 mg p.o. b.i.d. Given EGD findings, we will continue to hold ASA for 3 weeks. 6. COPD. Continue with supplemental oxygen, bronchodilators and inhaled corticosteroids as needed. 7. Prophylaxis: Continue with Protonix 40 mg p.o. b.i.d. and Venodyne for DVT prophylaxis. CODE STATUS: Full code. Trevor Simms MD MTDD
--- NOTE | 2017-05-16 09:59 | CP.PCM.PN ---
Subjective - Date & Time of Evaluation Date of Evaluation: 05/16/17 Time of Evaluation: 09:05 - Subjective Subjective: Comfortable in bed, not in distress, afebrile, breathing better, minimal cough, had endoscopy done yesterday. Objective - Vital Signs/Intake and Output Vital Signs (last 24 hours): Temp Pulse Resp BP Pulse Ox 98.6 F 117 H 20 117/44 L 97 05/16/17 06:00 05/16/17 06:00 05/16/17 06:00 05/16/17 06:00 05/16/17 06:00 Intake and Output: 05/15/17 05/16/17 18:59 06:59 Intake Total 0 1580 Output Total 300 300 Balance -300 1280 - Medications Medications: Current Medications Atorvastatin Calcium (Lipitor) 10 mg PO DAILY [facility] Last Admin: 05/15/17 10:03 Dose: 10 mg Budesonide (Pulmicort Respules) 0.5 mg IH [id number] [facility] Last Admin: 05/15/17 19:08 Dose: Not Given Digoxin (Lanoxin) 0.25 mg PO 1400 [facility] Last Admin: 05/15/17 14:51 Dose: 0.25 mg Diltiazem HCl (Cardizem) 60 mg PO QID [facility] Last Admin: 05/15/17 21:19 Dose: 60 mg Doxycycline Hyclate (Doryx) 100 mg PO Q12 [facility] PRN Reason: Protocol Stop: 05/21/17 12:20 Last Admin: 05/15/17 21:19 Dose: 100 mg Meropenem 1g/NS 100mL IVPB (Meropenem 1g/Ns 100ml Ivpb) 1 gm in 100 mls @ 100 mls/hr IVPB Q8 [facility] PRN Reason: Protocol Stop: 05/20/17 14:01 Last Admin: 05/16/17 05:33 Dose: 100 mls/hr Sodium Chloride (Sodium Chloride 0.9%) 1,000 mls @ 100 mls/hr IV .Q10H [facility] Last Admin: 05/16/17 00:15 Dose: 100 mls/hr Insulin Human Lispro (Humalog High) 0 units SC ACHS [facility] PRN Reason: Protocol Last Admin: 05/15/17 21:55 Dose: Not Given Levalbuterol HCl (Xopenex) 0.63 mg IH [id number] [facility] Last Admin: 05/16/17 02:33 Dose: 0.63 mg Levalbuterol HCl (Xopenex) 0.63 mg IH Q2 [facility]N PRN Reason: Shortness of Breath Linezolid (Zyvox) 600 mg PO BID [facility] PRN Reason: Protocol Stop: 05/21/17 12:18 Last Admin: 05/15/17 17:42 Dose: 600 mg Metoprolol Tartrate (Lopressor) 25 mg PO BRKDIN [facility] Last Admin: 05/15/17 17:39 Dose: 25 mg Pantoprazole Sodium (Protonix Ec Tab) 40 mg PO 0600,1600 [facility] Last Admin: 05/16/17 05:33 Dose: 40 mg Sucralfate (Carafate Oral Susp) 1 gm PO 0630,1130,1630,2200 [facility] Last Admin: 05/16/17 05:33 Dose: 1 gm - Labs Labs: 05/15/17 08:30 05/15/17 08:30 PT 12.3 Seconds (9.9-11.8) H 05/10/17 08:59 INR 1.14 (0.93-1.08) H 05/10/17 08:59 APTT 45.7 Seconds (23.7-30.8) H 05/12/17 05:00 - Constitutional Appears: Non-toxic, No Acute Distress - Head Exam Head Exam: NORMAL INSPECTION - ENT Exam ENT Exam: Mucous Membranes Moist - Neck Exam Neck Exam: absent: Meningismus - Respiratory Exam Respiratory Exam: Decreased Breath Sounds - Cardiovascular Exam Cardiovascular Exam: +S1, +S2 - GI/Abdominal Exam GI & Abdominal Exam: Soft. absent: Tenderness Assessment and Plan - Assessment and Plan (Free Text) Plan: Assessment Severe sepsis with acute renal failure (resolved) due to bilateral lower lobe community-acquired pneumonia, clinically improving CAD S/P PCI new onset atrial fibrillation COPD dyslipidemia morbid obesity with BMI 41 HTN DM Plan Continue Zyvox, Doxycycline, Merrem day 5; blood cx are negative; sputum cx show oropharyngeal contamination target 4-7 days of therapy will continue to trend WBC count - increased today but may due to his procedure from yesterday (i.e. endoscopy) if by tomorrow, the patient continues to improve, can be switched to PO Levaquin for another 3 days will continue to monitor clinically
--- NOTE | 2017-05-16 10:00 | PQF ANEMIA ---
This form is a permanent part of the medical record Dr. Simms, Documentation on this medical record notes patient has upper GI bleeding with EGD showing gastric ulcer. Labs show H/H dropping. Could the diagnosis of anemia be more specific to reflect type and severity- acute blood loss, chronic blood loss, other cause/ type? Is the gastric ulcer the likely cause? Clarification of your documentation is requested to better reflect the severity of illness and intensity of treatment of your patient. Indicators present [] Anemia [] Drop in H&H from []___ to []___ [] Hypotension [] GI Bleed [] Transfusion(s) [] Acute bleed other sites [] Tachycardia [] Surgical Procedure Blood Loss (expected not a complication) Other:[] Location in the medical record that reflects the above clinical findings: [] Treatment Provided: [] PHYSICIAN'S RESPONSE Based on your medical judgment of the clinical indicators outlined above, are you treating this patient for a known or suspected: [X] Acute blood loss anemia [] Chronic blood loss anemia [] Acute on Chronic blood loss anemia [] Anemia due to malignancy [] Anemia due to chemotherapy or radiation therapy [] Anemia of Chronic Disease, please specify: [] [] Other, please indicate type of anemia []____ [] If Unable to Determine, please check the box, sign and date. Present On Admission (POA) Indicator: [] Present at the time of admission [X] Not present at the time of admission [] Clinically Undetermined In responding to this query, please exercise your independent professional judgment. The fact that a question is asked does not imply that any particular answer is desired or expected. Thank you for your clarification on this documentation. 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
--- NOTE | 2017-05-16 11:05 | PN ---
DATE: 05/16/2017 SUBJECTIVE: The patient is lying in bed comfortably. Denies any abdominal pain, chest pain, shortness of breath or cough. OBJECTIVE: VITAL SIGNS: Reveal a temperature of 98.6, heart rate of 100, blood pressure 138/88. HEENT: Reveal sclerae to be white. Conjunctivae pale. NECK: Supple. CHEST: Reveals scattered rhonchi at the bases. HEART: Exam reveals an irregularly irregular rate. ABDOMEN: Soft, nontender. EXTREMITIES: Show no edema. LABORATORY DATA: Reveal white blood cell count 17.1, hemoglobin of 8.6 which is stable. Chemistries reveal normal electrolytes including AST, ALT, alk phos. IMPRESSION: A 67-year-old male admitted to the hospital with generalized weakness, found to be in atrial fibrillation of new onset with lower lobe pneumonia and gastrointestinal bleeding with dark stools and melena. Upper endoscopy yesterday showed multiple superficial ulcers in the fundus which were not bleeding. His hemoglobin has remained stable in the 8.6 g range. RECOMMENDATIONS: 1. Continue antibiotics with meropenem and linezolid and doxycycline. 2. Continue PPI and Carafate suspension. 3. Follow CBC. Mane Valverde MD
--- NOTE | 2017-05-16 13:16 | PN ---
DATE: 05/16/2017 SUBJECTIVE: The patient is seen sitting in a chair in telemetry. He is currently comfortable. He underwent an endoscopy yesterday, which showed evidence of multiple superficial gastric ulcers. He is currently on proton pump inhibitor and Carafate. Anticoagulant therapy remains withheld. He remains in atrial fibrillation. CURRENT MEDICATIONS: Include Carafate, diltiazem 60 mg q.i.d., doxycycline, insulin coverage, digoxin 0.25 mg daily, Lipitor 10 mg daily, metoprolol 25 mg b.i.d., meropenem, Protonix, Pulmicort inhaler, Xopenex, and Zyvox. PHYSICAL EXAMINATION: GENERAL: He is an obese middle aged man. VITAL SIGNS: His blood pressure is 138/80 with a pulse of 110 to 140 in atrial fibrillation and respirations are 16. He is afebrile. NECK: No JVD. CHEST: Few scattered rhonchi. HEART: PMI displaced laterally with an irregularly irregular rhythm. ABDOMEN: Soft, nontender. Normoactive bowel sounds. EXTREMITIES: Trace ankle edema. There is evidence of cellulitis involving his left forearm. LABORATORY DATA: Potassium 4.1, BUN and creatinine 19 and 0.7. White count 17.1, hemoglobin and hematocrit 8.6 and 26.4, platelet count of 449,000. IMPRESSION: 1. Persistent atrial fibrillation, currently on rate control therapy. We will not attempt conversion to sinus rhythm given inability to anticoagulate. 2. Recent upper gastrointestinal bleed secondary to gastric ulcers. 3. Recent sepsis. Remains on antibiotics. 4. Coronary artery disease, clinically stable at present. RECOMMENDATIONS: Continue rate control therapy as advised. His metoprolol will be increased to 50 mg b.i.d. for better heart rate control. Digoxin and diltiazem will be continued for now as well. Once it is felt safe to resume anticoagulation, consideration can be given to attempts at cardioversion at that time. The risk of thromboembolic was discussed with the patient; however, the inability to anticoagulate at this time was again reviewed. Overall in the short term, hopefully his risk will remain relatively low. We will continue to follow and make further recommendations as appropriate. Kaleb Durham MD
[2017-05-16] MEDS: Digoxin 250 mcg (0.25 mg) Tab PO SCH (14:18)
[2017-05-17] MEDS: Levalbuterol 0.63 MG/3 ML Inhal Soln UD IH SCH ×4 (02:39→20:12)
[2017-05-17] MEDS: Meropenem 1g/NS 100mL IVPB 1 GM/100 ML PIGGYBACK IVPB SCH ×3 (05:45→21:27)
[2017-05-17] MEDS: Sucralfate 1 gm/10 ml Oral Susp UD PO SCH ×4 (05:45→21:27)
[2017-05-17] MEDS: Pantoprazole 40 mg EC Tab PO SCH ×2 (05:46→16:40)
[2017-05-17] MEDS: Sodium Chloride 0.9% 1,000 ML IV SCH ×2 (05:46→16:41)
[2017-05-17 06:08] VITALS: O2SAT 97
[2017-05-17 07:31] LABS: BASO # 0.04 K/mm3 (0.0-2.0); BASO % 0.2 % (0.0-3.0); EOS # 0.2 (0.0-0.7); EOS % 1.4 % (1.5-5.0); GRAN # 11.86 (1.4-6.5); HEMATOCRIT 27.2 % (42.0-52.0); LYMPH # 3.1 (1.2-3.4); LYMPH % 18.6 % (22.0-35.0); MEAN CORPUSCULAR HEMOGLOBIN 26.9 pg (25.0-35.0); MEAN PLATELET VOLUME 9.1 fl (7.0-11.0); MONO # 1.5 (0.1-0.6); MONO % 8.8 % (1.0-6.0); RED CELL DISTRIBUTION WIDTH 14.2 % (11.5-14.5); WHITE BLOOD COUNT 16.7 10^3/ul (4.5-11.0)
[2017-05-17 07:48] LABS: ALB/GLOB RATIO 0.8 (1.1-1.8); ALKALINE PHOSPHATASE 69 U/L (38-126); ALT/SGPT 26 U/L (7-56); AST/SGOT 30 U/L (17-59); BLOOD UREA NITROGEN 19 mg/dL (7-21); CALCIUM 8.6 mg/dL (8.4-10.5); CARBON DIOXIDE 25 mmol/L (21-33); CHLORIDE 102 mmol/L (95-110); GFR AFRICAN-AMERICAN > 60; GLUCOSE,RANDOM 151 mg/dL (70-110); POTASSIUM 4.1 mmol/L (3.6-5.0); SODIUM 139 mmol/L (132-148); TOTAL PROTEIN 6.5 g/dL (5.8-8.3)
[2017-05-17] MEDS: Budesonide 0.5 mg/2 ml Inhal Susp UD IH SCH ×2 (07:54→20:12)
[2017-05-17 08:00] LABS: BILIRUBIN,TOTAL 0.5 mg/dL (0.2-1.3)
[2017-05-17] MEDS: Insulin Lispro (HUMAlog) HIGH Coverage SC SCH ×4 (08:57→21:28)
[2017-05-17] MEDS: diltiaZEM 240 mg/24 Hours CD Cap PO SCH (09:08)
--- NOTE | 2017-05-17 11:37 | PN ---
SUBJECTIVE: The patient was seen and examined at bedside on the telemetry blancas. No acute events overnight. He remains afebrile and hemodynamically stable. The patient is doing well s/p EGD and denies any further bloody bowel movements. This morning he feels okay and offers no complaints. OBJECTIVE: VITAL SIGNS: Temperature 97.8, pulse 107, blood pressure 139/80, respiratory rate 18, and oxygen saturation 97% on 2 L nasal cannula. GENERAL: Obese man, sitting up in his chair, in no apparent distress. HEENT: PERRL. EOMI. No scleral icterus. Mild conjunctival pallor is noted. NECK: No JVD. No bruits. LUNGS: Decreased breath sounds at the bases, otherwise clear. CARDIOVASCULAR: Irregularly irregular. No friction rub. ABDOMEN: Obese, normoactive bowel sounds, soft, nontender, and nondistended. EXTREMITIES: No edema. Left upper extremity with improving erythema and edema to the hand and mid forearm. NEUROLOGIC: Awake, alert, and oriented x3. No focal motor deficits. LABORATORY DATA: WBC 16.7 with 71% neutrophils, hemoglobin 8.7, hematocrit 27, and platelets 437. Chemistry reviewed and unremarkable. ASSESSMENT: The patient is a 66-year-old man with past medical history of CAD, hyperlipidemia and COPD who presented to [facility] with a several day history of dyspnea and cough and who was initially admitted to the CCU for new onset AFib with RVR and community acquired pneumonia who remains on the telemetry blancas for continued management of AFib, community acquired pneumonia, pericardial effusion and upper GI bleed secondary to bleeding gastric ulcers PLAN: 1. Sepsis secondary to community-acquired pneumonia, resolving. Input from Dr. Stokes of ID noted recommendations have been made to change antibiotics to Levaquin p.o. in anticipation of discharge to home. Will continue to monitor leukocytosis as the increase yesterday may have been secondary to stress response s/p EGD. He remains afebrile and with no signs/symptoms of sepsis. 2. Upper GI bleed s/p EGD which demonstrated gastric ulcers with adherent clot. Input from Dr. Valverde noted and appreciated. Continue with Carafate 1 g p.o. q.i.d. and Protonix 40 mg p.o. b.i.d. H/H remains stable. The patient must refrain from NSAIDs and antiplatelet or anticoagulation therapy for 3 to 4 weeks. 3. AFib with RVR (new onset). Input from Dr. Durham noted and greatly appreciated. Given the EGD findings we will hold anticoagulation for 3 to 4 weeks. The patient remains rate controlled. Continue with Diltiazem CD 240 mg p.o. daily, Digoxin 0.25 mg p.o. daily, and Lopressor 50 mg p.o. b.i.d. 4. Pericardial effusion. Repeat TTE demonstrated no changes and the patient remains hemodynamically stable and chest pain free. 5. CAD, status post PCI. Continue with Lipitor 10 mg p.o. daily and Lopressor 50 mg p.o. b.i.d. As above, we will hold ASA for 3-4 weeks. 6. COPD. Input from Dr. Gill noted and appreciated. Continue with current regimen. 7. Prophylaxis. Continue Protonix for GI prophylaxis and Venodynes for DVT prophylaxis. CODE STATUS: Full code. Trevor Simms MD MTDD
--- NOTE | 2017-05-17 12:36 | PN ---
DATE: 05/17/2017 SUBJECTIVE: The patient is lying in bed. He continues to feel better. He denies any cough. OBJECTIVE: VITAL SIGNS: Reveal temperature of 97.8, blood pressure 133/78, heart rate of 142. ABDOMEN: Soft, nontender, obese. LABORATORY DATA: Reveal hemoglobin 8.7 which is stable, white blood cell count 16.7. Normal electrolytes. IMPRESSION: A 67-year-old male admitted to the hospital with new-onset atrial fibrillation, sepsis, pneumonia, gastrointestinal bleeding, found to have superficial gastric fundic ulcers. The patient is anemic, but his hemoglobin has remained stable. RECOMMENDATIONS: 1. Continue PPI b.i.d. 2. Continue Carafate suspension 3 times a day. 3. Hold anticoagulation for several weeks. 4. I will follow the patient up as an outpatient as he will need an elective colonoscopy. Mane Valverde MD
--- NOTE | 2017-05-17 12:41 | CP.PCM.PN ---
Subjective - Date & Time of Evaluation Date of Evaluation: 05/17/17 Time of Evaluation: 10:05 - Subjective Subjective: Comfortable, breathing better, no fevers, no diarrhea, minimal cough, feeling better. Objective - Vital Signs/Intake and Output Vital Signs (last 24 hours): Temp Pulse Resp BP Pulse Ox 97.8 F 107 H 18 139/80 97 05/17/17 06:00 05/17/17 06:00 05/17/17 06:00 05/17/17 06:00 05/17/17 06:00 Intake and Output: 05/16/17 05/17/17 18:59 06:59 Intake Total 1480 Balance 1480 - Medications Medications: Current Medications Atorvastatin Calcium (Lipitor) 10 mg PO DAILY [facility] Last Admin: 05/16/17 11:49 Dose: 10 mg Budesonide (Pulmicort Respules) 0.5 mg IH [id number] [facility] Last Admin: 05/16/17 19:40 Dose: 0.5 mg Digoxin (Lanoxin) 0.25 mg PO 1400 [facility] Last Admin: 05/16/17 14:18 Dose: 0.25 mg Diltiazem HCl (Cardizem) 60 mg PO QID [facility] Last Admin: 05/16/17 21:09 Dose: 60 mg Doxycycline Hyclate (Doryx) 100 mg PO Q12 [facility] PRN Reason: Protocol Stop: 05/21/17 12:20 Last Admin: 05/16/17 21:09 Dose: 100 mg Meropenem 1g/NS 100mL IVPB (Meropenem 1g/Ns 100ml Ivpb) 1 gm in 100 mls @ 100 mls/hr IVPB Q8 [facility] PRN Reason: Protocol Stop: 05/20/17 14:01 Last Admin: 05/17/17 05:45 Dose: 100 mls/hr Sodium Chloride (Sodium Chloride 0.9%) 1,000 mls @ 100 mls/hr IV .Q10H [facility] Last Admin: 05/17/17 05:46 Dose: 100 mls/hr Insulin Human Lispro (Humalog High) 0 units SC ACHS [facility] PRN Reason: Protocol Last Admin: 05/16/17 21:30 Dose: Not Given Levalbuterol HCl (Xopenex) 0.63 mg IH [id number] [facility] Last Admin: 05/17/17 02:39 Dose: 0.63 mg Levalbuterol HCl (Xopenex) 0.63 mg IH Q2 [facility] PRN Reason: Shortness of Breath Linezolid (Zyvox) 600 mg PO BID [facility] PRN Reason: Protocol Stop: 05/21/17 12:18 Last Admin: 05/16/17 17:00 Dose: 600 mg Metoprolol Tartrate (Lopressor) 50 mg PO BRKDIN [facility] Last Admin: 05/16/17 16:56 Dose: 50 mg Pantoprazole Sodium (Protonix Ec Tab) 40 mg PO 0600,1600 [facility] Last Admin: 05/17/17 05:46 Dose: 40 mg Sucralfate (Carafate Oral Susp) 1 gm PO 0630,1130,1630,2200 [facility] Last Admin: 05/17/17 05:45 Dose: 1 gm - Labs Labs: 05/16/17 06:22 05/16/17 06:22 PT 12.3 Seconds (9.9-11.8) H 05/10/17 08:59 INR 1.14 (0.93-1.08) H 05/10/17 08:59 APTT 45.7 Seconds (23.7-30.8) H 05/12/17 05:00 - Constitutional Appears: Non-toxic, No Acute Distress - Head Exam Head Exam: NORMAL INSPECTION - ENT Exam ENT Exam: Mucous Membranes Moist - Neck Exam Neck Exam: absent: Meningismus - Respiratory Exam Respiratory Exam: Decreased Breath Sounds - Cardiovascular Exam Cardiovascular Exam: +S1, +S2 - GI/Abdominal Exam GI & Abdominal Exam: Soft. absent: Tenderness Assessment and Plan - Assessment and Plan (Free Text) Plan: Assessment Severe sepsis with acute renal failure (resolved) due to bilateral lower lobe community-acquired pneumonia, clinically improving CAD S/P PCI new onset atrial fibrillation COPD dyslipidemia morbid obesity with BMI 41 HTN DM Plan Continue Zyvox, Doxycycline, Merrem day 6; blood cx are negative; sputum cx show oropharyngeal contamination will continue to trend WBC count - increased today but may due to his procedure from yesterday (i.e. endoscopy) as long as patient continues to improve, can be switched to PO Levaquin for another 3 days will continue to monitor clinically while the patient is in the hospital; follow up repeat CXR done today
--- NOTE | 2017-05-17 12:43 | PN ---
DATE:05/17/17 SUBJECTIVE: The patient appears comfortable this morning. He is not short of breath at rest. OBJECTIVE: VITAL SIGNS: Temperature is 97.8, pulse on the monitor is 91, respiratory rate 18, blood pressure 139/80. Oxygen saturation on nasal cannula is 97%. HEENT: Normocephalic, atraumatic. NECK: No JVD. CARDIOVASCULAR: Positive S1, S2. No S3. LUNGS: Decreased breath sounds at the bases. Minimal/less rhonchi. No wheezing. EXTREMITIES: Less edema. No cyanosis, no clubbing. Calves are nontender to palpation. GASTROINTESTINAL: Abdomen is soft, nontender and nondistended. Bowel sounds are positive. SKIN: No acute rash. NEUROLOGIC: Exam limited at the present time. IMPRESSION: 1. Chronic obstructive pulmonary disease. 2. Acute bronchitis. 3. Rule out basilar pneumonia. 4. Coronary artery disease. 5. Rapid atrial fibrillation. 6. Pericardial effusion. PLAN: The patient appears comfortable this morning. He is not short of breath at rest. He does state to feeling much better overall. He is, however, somewhat dyspneic on exertion. In all probability, he is certainly deconditioned. On physical exam, there is no significant bronchospasm noted. In addition, there is no significant alveolar-arterial gradient. I will continue the current nebulizer treatments and inhaled steroids for now. The patient remains on antibiotic therapy - as per infectious disease. The temperatures have now fully resolved. Repeat a.m. labs are pending. GI and cardiology evaluations are also noted. Clinical status of the patient is significantly improved - compared to the initial presentation. The patient is advised to be out of bed as much as possible. I will discuss the above with Dr. Simms. Derek Gill MD MTDD
[2017-05-17] MEDS: Digoxin 250 mcg (0.25 mg) Tab PO SCH (13:20)
[2017-05-17 13:21] VITALS: PULSE 89
--- NOTE | 2017-05-17 15:05 | RAD ---
HISTORY: reeval PNA COMPARISON: 05/10/2017 TECHNIQUE: Chest PA and lateral FINDINGS: LUNGS: Left basilar opacity, infiltrate versus atelectasis. Elevated left hemidiaphragm consistent with volume loss. No right-sided infiltrate. Limited lateral view does not clearly demonstrate an infiltrate. PLEURA: Small left pleural effusion. Probable very small right pleural effusion. No pneumothorax. CARDIOVASCULAR: Mild congestive change. OSSEOUS STRUCTURES: No significant abnormalities. VISUALIZED UPPER ABDOMEN: Normal. OTHER FINDINGS: None. IMPRESSION: Left basilar infiltrate versus atelectasis. Small left pleural effusion and very small right pleural effusion.
[2017-05-18] MEDS: Levalbuterol 0.63 MG/3 ML Inhal Soln UD IH SCH ×3 (02:03→13:37)
[2017-05-18] MEDS: Sucralfate 1 gm/10 ml Oral Susp UD PO SCH ×2 (05:55→11:39)
[2017-05-18] MEDS: Meropenem 1g/NS 100mL IVPB 1 GM/100 ML PIGGYBACK IVPB SCH (05:56)
[2017-05-18] MEDS: Pantoprazole 40 mg EC Tab PO SCH (05:56)
[2017-05-18 06:01] LABS: BASO # 0.04 K/mm3 (0.0-2.0); BASO % 0.2 % (0.0-3.0); EOS # 0.3 (0.0-0.7); EOS % 1.9 % (1.5-5.0); GRAN # 11.71 (1.4-6.5); GRAN % 71.7 % (50.0-68.0); HEMATOCRIT 28.1 % (42.0-52.0); LYMPH # 2.9 (1.2-3.4); LYMPH % 17.5 % (22.0-35.0); MEAN CELL VOLUME 83.4 fl (80.0-105.0); MEAN CORPUSCULAR HEMOGLOBIN 27.3 pg (25.0-35.0); MEAN CORPUSCULAR HGB CONC 32.7 g/dl (31.0-37.0); MEAN PLATELET VOLUME 8.5 fl (7.0-11.0); MONO # 1.4 (0.1-0.6); MONO % 8.7 % (1.0-6.0); RED CELL DISTRIBUTION WIDTH 14.2 % (11.5-14.5); WHITE BLOOD COUNT 16.4 10^3/ul (4.5-11.0)
[2017-05-18 06:28] VITALS: RESP 20
[2017-05-18 06:35] LABS: ALB/GLOB RATIO 0.9 (1.1-1.8); ALKALINE PHOSPHATASE 81 U/L (38-126); ALT/SGPT 23 U/L (7-56); AST/SGOT 40 U/L (17-59); BILIRUBIN,TOTAL 0.4 mg/dL (0.2-1.3); BLOOD UREA NITROGEN 21 mg/dL (7-21); CALCIUM 8.9 mg/dL (8.4-10.5); CARBON DIOXIDE 24 mmol/L (21-33); CHLORIDE 103 mmol/L (98-107); GFR AFRICAN-AMERICAN > 60; GLUCOSE,RANDOM 151 mg/dL (70-110); POTASSIUM 4.1 mmol/L (3.6-5.0); SODIUM 138 mmol/L (132-148); TOTAL PROTEIN 6.7 g/dL (5.8-8.3)
[2017-05-18] MEDS: Budesonide 0.5 mg/2 ml Inhal Susp UD IH SCH (07:15)
--- NOTE | 2017-05-18 09:21 | PN ---
DATE: 05/18/2017 PULMONARY PROGRESS NOTE SUBJECTIVE: The patient appears comfortable this morning. He is not short of breath at rest. He is out of bed, sitting in the chair. PHYSICAL EXAMINATION: VITAL SIGNS: Temperature is 98.1, pulse is 85, respirations are 18/20, and blood pressure is 134/63. Oxygen saturation on nasal cannula is 97%. HEENT: Normocephalic and atraumatic. NECK: No JVD. CARDIOVASCULAR: Positive S1 and S2. No S3. LUNGS: Decreased breath sounds at the bases. Minimal rhonchi. No wheezing. EXTREMITIES: Less edema. No cyanosis and no clubbing. Calves are nontender to palpation. GASTROINTESTINAL: Abdomen is soft, nontender and nondistended. Bowel sounds are positive. SKIN: No acute rash. NEUROLOGIC: Exam limited at the present time. PERTINENT LABORATORY DATA: Chest x-ray was repeated yesterday and reviewed. The chest x-ray is not fully erect and rotated in nature. There remains an elevated left hemidiaphragm. There also remains infiltration/atelectasis at the left base. Compared to the film of 05/10/2017, the most current film is slightly improved. IMPRESSION 1. Chronic obstructive pulmonary disease. 2. Acute bronchitis. 3. Rule out basilar pneumonia. 4. Coronary artery disease. 5. Rapid atrial fibrillation. 6. Pericardial effusion. PLAN The patient appears comfortable this morning. He is not short of breath at rest. He does state that he is feeling much better overall. He does remain dyspneic on exertion(confirmed by nurse). I did discuss the case with the night nurse at length. Apparently, the patient experienced shortness of breath yesterday. He also went into a rapid atrial fibrillation in the 140s. An extra intravenous dose of Cardizem was given. The rate is much more controlled this morning. I did review the chest x-ray as above. The chest x-ray remains with an elevated left hemidiaphragm and infiltrates/atelectasis at the left base. It is slightly improved from the previous film. I would continue with the antibiotic coverage as per infectious disease. The temperatures have fully resolved. The leukocytosis is mildly improved. I would continue with the treatment for the cardiac arrhythmias as per cardiology. Input by Dr. Durham is noted. The patient is instructed to be out of bed, and using his incentive spirometer frequently. Given the above,I strongly feel that it would be beneficial for this patient to have a short stay on the Transitional Unit. He is overall improved, but remains guarded. I will discuss the above with Dr. Trevor Simms. Derek Gill MD MTDD
--- NOTE | 2017-05-18 10:14 | CP.PCM.PN ---
Subjective - Date & Time of Evaluation Date of Evaluation: 05/18/17 Time of Evaluation: 08:45 - Subjective Subjective: Has occasional tachyarrhythmias, no fevers, breathing is better but still has dyspnea on exertion. Objective - Vital Signs/Intake and Output Vital Signs (last 24 hours): Temp Pulse Resp BP Pulse Ox 98.8 F 84 16 123/63 97 05/17/17 18:01 05/18/17 02:00 05/17/17 18:01 05/17/17 18:01 05/17/17 06:00 - Medications Medications: Current Medications Atorvastatin Calcium (Lipitor) 10 mg PO DAILY [facility] Last Admin: 05/17/17 09:08 Dose: 10 mg Budesonide (Pulmicort Respules) 0.5 mg IH [id number] [facility] Last Admin: 05/17/17 20:12 Dose: 0.5 mg Digoxin (Lanoxin) 0.25 mg PO 1400 [facility] Last Admin: 05/17/17 13:20 Dose: 0.25 mg Diltiazem HCl (Cardizem Cd) 240 mg PO DAILY [facility] Last Admin: 05/17/17 09:08 Dose: 240 mg Doxycycline Hyclate (Doryx) 100 mg PO Q12 [facility] PRN Reason: Protocol Stop: 05/21/17 12:20 Last Admin: 05/17/17 21:27 Dose: 100 mg Meropenem 1g/NS 100mL IVPB (Meropenem 1g/Ns 100ml Ivpb) 1 gm in 100 mls @ 100 mls/hr IVPB Q8 [facility] PRN Reason: Protocol Stop: 05/20/17 14:01 Last Admin: 05/18/17 05:56 Dose: 100 mls/hr Insulin Human Lispro (Humalog High) 0 units SC ACHS [facility] PRN Reason: Protocol Last Admin: 05/17/17 21:28 Dose: Not Given Levalbuterol HCl (Xopenex) 0.63 mg IH [id number] [facility] Last Admin: 05/18/17 02:03 Dose: Not Given Levalbuterol HCl (Xopenex) 0.63 mg IH Q2 PRN PRN Reason: Shortness of Breath Metoprolol Tartrate (Lopressor) 50 mg PO BRKDIN [facility] Last Admin: 05/17/17 16:40 Dose: 50 mg Pantoprazole Sodium (Protonix Ec Tab) 40 mg PO 0600,1600 [facility] Last Admin: 05/18/17 05:56 Dose: 40 mg Sucralfate (Carafate Oral Susp) 1 gm PO 0630,1130,1630,2200 [facility] Last Admin: 05/18/17 05:55 Dose: 1 gm - Labs Labs: 05/18/17 05:40 05/17/17 07:00 PT 12.3 Seconds (9.9-11.8) H 05/10/17 08:59 INR 1.14 (0.93-1.08) H 05/10/17 08:59 APTT 45.7 Seconds (23.7-30.8) H 05/12/17 05:00 - Constitutional Appears: Non-toxic, No Acute Distress - Head Exam Head Exam: NORMAL INSPECTION - ENT Exam ENT Exam: Mucous Membranes Moist - Neck Exam Neck Exam: absent: Lymphadenopathy, Meningismus - Respiratory Exam Respiratory Exam: Decreased Breath Sounds - Cardiovascular Exam Cardiovascular Exam: +S1, +S2 - GI/Abdominal Exam GI & Abdominal Exam: Soft. absent: Tenderness Assessment and Plan - Assessment and Plan (Free Text) Plan: Assessment Severe sepsis with acute renal failure (resolved) due to bilateral lower lobe community-acquired pneumonia, clinically improving CAD S/P PCI new onset atrial fibrillation COPD dyslipidemia morbid obesity with BMI 41 HTN DM Plan Continue Doxycycline, Merrem day 7; blood cx are negative; sputum cx show oropharyngeal contamination will continue to trend WBC count - increased today but may due to his procedure from yesterday (i.e. endoscopy) discussed with Dr. Gill - would prefer to continue his antibiotics and observe the patient in the hospital especially with the new onset atrial fibrillation - will see if we can discontinue antibiotics in the next 24-48 hours will continue to monitor clinically
[2017-05-18] MEDS: diltiaZEM 240 mg/24 Hours CD Cap PO SCH (11:39)
[2017-05-18] MEDS: Insulin Lispro (HUMAlog) HIGH Coverage SC SCH ×2 (11:48→11:54)
[2017-05-18 12:13] VITALS: BP 115/74; PULSE 82
[2017-05-18 12:14] VITALS: TEMP 98.2
--- NOTE | 2017-05-18 14:14 | PN ---
SUBJECTIVE: The patient was seen and examined at bedside on the telemetry blancas. Overnight he was noted to have episodes of AFib with rapid ventricular rate with a pulse in the 140s. The patient was symptomatic at this time and complained of palpitations. He denies chest pain or dyspnea associated with the symptoms. This morning he was sitting up comfortably in his chair but reports that he is not yet back to his baseline respiratory status. An extensive discussion has been had with Dr. Gill and the patient as well as myself regarding the possibility of admission to TCU and the patient appears to be adamantly against it, however, given his persistent leukocytosis, persistent pericardial effusion and the fact that he still has episodes of uncontrolled atrial fibrillation, the medical team feels it is most prudent to admit the patient to TCU for continued observation and therapy. PHYSICAL EXAMINATION VITAL SIGNS: Temperature 98.1, pulse 85, blood pressure 134/63, respiratory rate 20, oxygen saturation 97% on 2 liters nasal cannula. GENERAL: An obese man ,sitting up in his chair, in no apparent distress. HEENT: PERRL. EOMI. No scleral icterus. Mild conjunctival pallor is noted. NECK: No JVD. No bruits. LUNGS: Decreased breath sounds in the bases with faint scattered rhonchi. CARDIOVASCULAR: Irregularly irregular. No friction rub. ABDOMEN: Obese. Normoactive bowel sounds. Soft, nontender. Nondistended. EXTREMITIES: No edema. Left upper extremity with improving erythema and edema to the hand and mid forearm. NEUROLOGIC: Awake, alert and oriented x3. No focal motor deficits. LABORATORY DATA: WBC is 16.4 with 72% neutrophils, hemoglobin 9.2, hematocrit 28, and platelets 436. Chemistry reviewed and unremarkable. ASSESSMENT: The patient is a 66-year-old man with a past medical history of CAD , COPD and hyperlipidemia who presented with a several day history of dyspnea and cough and was initially admitted to the CCU for new onset AFib with RVR and community-acquired pneumonia, who remains on the telemetry blancas for continued management of atrial fibrillation, community-acquired pneumonia, pericardial effusion, upper gastrointestinal bleed secondary to bleeding gastric ulcers. PLAN: 1. Sepsis secondary to community-acquired pneumonia, resolving. Input from Dr. Stokes of ID noted and appreciated. The patient remains on Doxycycline 100 mg p.o. q. 12 hours and Meropenem 1 gram IV q. 8 hours. He remains afebrile and hemodynamically stable. 2. Upper GI bleed s/p EGD, which demonstrated gastric ulcers with adherent clot. Continue with Carafate 1 gram p.o. q.i.d. and Protonix 40 mg p.o. b.i.d.. H/H remains stable and slowly improving. The patient must refrain from NSAIDs, antiplatelet or anticoagulation therapy for 3-[address] Valverde. 3. AFib with RVR (new-onset). Input from Dr. Durham noted and greatly appreciated. Given the EGD findings, we will hold anticoagulation for 3-4 weeks. The patient largely remains rate controlled, however, he does have episodes of rapid ventricular rate during which time he is symptomatic. He is on Diltiazem CD 240 mg p.o. daily, Digoxin 0.25 mg p.o. daily, and Lopressor 50 mg p.o. b.i.d. 4. Pericardial effusion, stable as per TTE 5. Leukocytosis, etiology unclear but consider secondary to resolving pneumonia versus persistent pericardial effusion. Labs demonstrate a slowly, favorably trending white blood cell count. We will continue to monitor. 6. CAD s/p PCI. Continue with Lipitor 10 mg p.o. daily and Lopressor 50 mg p.o. b.i.d.. As above, we will hold ASA for 3-4 weeks. 7. COPD. Input from Dr. Gill noted and greatly appreciated. Continue with current management. 8. Prophylaxis. Continue Protonix for gastrointestinal prophylaxis and Venodynes for deep venous thrombosis prophylaxis. CODE STATUS: FULL CODE Trevor Simms MD MTDD
--- NOTE | 2017-05-18 15:20 | DS ---
ADMITTING DIAGNOSES: Atrial fibrillation with rapid ventricular response (new-onset), community- acquired pneumonia. DISCHARGE DIAGNOSES: Atrial fibrillation (new-onset), community-acquired pneumonia (resolving). SECONDARY DIAGNOSES: Pericardial effusion, CAD s/p PCI, COPD, upper GI bleed secondary to gastric ulcers. CONSULTATIONS: Dr. Rosas (Infectious Disease), Dr. Valverde (Gastroenterology), Dr. Durham ( Cardiology), Dr. Gill (Pulmonary and Critical Care). IMAGING STUDIES: Chest x-ray which demonstrated crowded bronchovascular markings with bibasilar atelectasis and a small right effusion. DIAGNOSTIC STUDIES: TTE which demonstrated a moderate pericardial effusion with concentric LVH, but otherwise normal LV size and function. PROCEDURES: EGD which demonstrated linear gastric ulcers with adherent clock formation, HISTORY OF PRESENT ILLNESS: The patient is a 67-year-old man with a past medical history of CAD s/p PCI, COPD and morbid obesity who presented to [facility] ED with a 3-day history of progressively worsening dyspnea. Upon presentation to the ED he was found to be in new-onset AFib with RVR with a pulse rate in the 150s. He was started on a Cardizem drip and subsequently admitted to the CCU for continued management of new onset rapid AFib and community-acquired pneumonia. HOSPITAL COURSE: Upon admission to the CCU, he was evaluated by Dr. Durham of cardiology. The patient was maintained on the Cardizem drip while oral rate-controlling medications were initiated which consisted of Diltiazem, Digoxin and Lopressor. A TTE demonstrated a [id number] pericardial effusion but despite this the patient had no hemodynamic instability. Approximately 24 hours after admission he was noted to be rate controlled on oral medications and was successfully weaned off the Cardizem drip and transferred to the telemetry blancas. His hospital course was complicated by development of upper GI bleed while on heparin for anticoagulation of his new onset AFib. Given an acute drop in his hemoglobin secondary to GI bleed, his heparin drip was discontinued. He was evaluated by Dr. Valverde of gastroenterology and underwent an EGD which demonstrated multiple gastric ulcers with adherent clot formation. Given his EGD findings, recommendations were made to hold anticoagulation for approximately 3-4 weeks. The patient's hospital course was otherwise unremarkable with the exception of periodic episodes of AFib with rapid ventricular rate. Given his deconditioned status, as well as his persistent leukocytosis and pericardial effusion, recommendations were made for transfer to the TCU for continued medical therapy and PT. By hospital day #8, he was deemed stable for transfer to TCU. CONDITION: Fair, improved. DISPOSITION: TCU. DISCHARGE MEDICATIONS: Diltiazem CD 240 mg p.o. daily, Lopressor 50 mg p.o. b.i.d., Digoxin 0.25 mg p.o. daily. FOLLOWUP: The patient will be followed by his PMD and the various store sales consultant while on the TCU. Trevor Simms MD MTDD
== END 2017-05-18 13:54 | DRG 871 ==
LOC: ED 08:29 → ERH 10:40 → CCU 13:40 → 2RNO 05-12 05:35
PROVIDERS: ADMIT Internal Medicine; ATTEND Internal Medicine
PROC: 3E0F7GC Introduction of Other Therapeutic Substance into Respiratory Tract, Via Natural or Artificial Opening (ICD-10-PCS; 2017-05-14)
PROC: 0DB98ZX Excision of Duodenum, Via Natural or Artificial Opening Endoscopic, Diagnostic (ICD-10-PCS; 2017-05-15)
PROC: 0DB78ZX Excision of Stomach, Pylorus, Via Natural or Artificial Opening Endoscopic, Diagnostic (ICD-10-PCS; principal; 2017-05-15 13:00)
DX: A41.9 Sepsis, unspecified organism (principal); J18.9 Pneumonia, unspecified organism; N17.9 Acute kidney failure, unspecified; I48.1 Persistent atrial fibrillation; I31.3 Pericardial effusion (noninflammatory); J90 Pleural effusion, not elsewhere classified; J44.0 Chronic obstructive pulmonary disease with (acute) lower respiratory infection; D62 Acute posthemorrhagic anemia; K25.4 Chronic or unspecified gastric ulcer with hemorrhage; Z68.41 Body mass index [BMI] 40.0-44.9, adult; E66.01 Morbid (severe) obesity due to excess calories; E78.5 Hyperlipidemia, unspecified; I25.10 Atherosclerotic heart disease of native coronary artery without angina pectoris; I10 Essential (primary) hypertension; J20.9 Acute bronchitis, unspecified; E86.0 Dehydration; E11.65 Type 2 diabetes mellitus with hyperglycemia; R65.20 Severe sepsis without septic shock; K29.50 Unspecified chronic gastritis without bleeding; K44.9 Diaphragmatic hernia without obstruction or gangrene; M85.80 Other specified disorders of bone density and structure, unspecified site; K57.90 Diverticulosis of intestine, part unspecified, without perforation or abscess without bleeding; Z98.61 Coronary angioplasty status; Z87.891 Personal history of nicotine dependence; Z79.82 Long term (current) use of aspirin; Z79.899 Other long term (current) drug therapy

== ENCOUNTER 2017-05-18 14:00 | Inpatient (IN) | payer OTHER, BC ==
[2017-05-18 14:19] VITALS: BMI 43.7
[2017-05-18] MEDS ORDERED: Levalbuterol 0.63 MG/3 ML Inhal Soln UD IH SCH (16:00)
[2017-05-18] MEDS ORDERED: Sucralfate 1 gm/10 ml Oral Susp UD PO SCH (16:30)
[2017-05-18] MEDS: Sucralfate 1 gm/10 ml Oral Susp UD PO SCH ×2 (18:14→21:35)
[2017-05-18] MEDS: Pantoprazole 40 mg EC Tab PO SCH (18:15)
[2017-05-18] MEDS: Insulin Lispro (HUMAlog) HIGH Coverage SC SCH ×2 (18:15→22:37)
[2017-05-18] MEDS ORDERED: Pneumococcal 23-Valent Vaccine IM ONE (20:01)
[2017-05-18] MEDS: Budesonide 0.5 mg/2 ml Inhal Susp UD IH SCH (20:43)
[2017-05-18] MEDS: Meropenem 1g/NS 100mL IVPB 1 GM/100 ML PIGGYBACK IVPB SCH (21:35)
--- NOTE | 2017-05-19 01:09 | PN ---
DATE: 05/18/2017 SUBJECTIVE: The patient is lying in bed comfortable. He denies any melena, abdominal pain, nausea, vomiting. He is tolerating solid foods. PHYSICAL EXAMINATION: VITAL SIGNS: Reveal temperature of 98.3, blood pressure 114/63 and heart rate 73. ABDOMEN: Obese, soft and nontender. LABORATORY DATA: Revealed white blood cell count 16.4 and hemoglobin up to 9.2. Chemistries reveal normal electrolytes, blood sugar of 212. IMPRESSION: A 67-year-old male admitted to the hospital with new onset atrial fibrillation found to have an upper gastrointestinal bleed while on heparin secondary to multiple linear gastric fundic ulcers, heparin was stopped. The patient's blood count is improved without any blood transfusions, anticoagulation has been held. The patient also had pneumonia and sepsis. RECOMMENDATIONS: Continue high dose PPI, Carafate suspension. Monitor CBC. Would hold anticoagulation for at least 3 weeks to allow the ulcers to heal. Mane Valverde MD
[2017-05-19] MEDS: Levalbuterol 0.63 MG/3 ML Inhal Soln UD IH SCH ×5 (01:45→21:55)
[2017-05-19] MEDS ORDERED: Levalbuterol 0.63 MG/3 ML Inhal Soln UD IH PRN (01:55)
[2017-05-19] MEDS: Sucralfate 1 gm/10 ml Oral Susp UD PO SCH ×4 (05:38→21:14)
[2017-05-19] MEDS: Meropenem 1g/NS 100mL IVPB 1 GM/100 ML PIGGYBACK IVPB SCH (05:38)
[2017-05-19] MEDS: Pantoprazole 40 mg EC Tab PO SCH ×2 (05:39→17:48)
[2017-05-19] MEDS: Insulin Lispro (HUMAlog) HIGH Coverage SC SCH ×4 (06:36→22:19)
[2017-05-19 06:51] LABS: HEMATOCRIT 28.7 % (42.0-52.0); MEAN CELL VOLUME 83.4 fl (80.0-105.0); MEAN CORPUSCULAR HGB CONC 32.4 g/dl (31.0-37.0); MEAN PLATELET VOLUME 8.8 fl (7.0-11.0); RED CELL DISTRIBUTION WIDTH 14.3 % (11.5-14.5); WHITE BLOOD COUNT 15.2 10^3/ul (4.5-11.0)
[2017-05-19] MEDS: Budesonide 0.5 mg/2 ml Inhal Susp UD IH SCH ×2 (08:21→21:55)
--- NOTE | 2017-05-19 10:17 | PN ---
PULMONARY PROGRESS NOTE DATE: 05/19/2017 SUBJECTIVE: The patient was seen and examined on Transitional Care Unit. He appears to be short of breath at rest. He took his oxygen off anticipating a breathing treatment and that was enough to cause shortness of breath on exertion. He is receiving inhalation treatments with his levalbuterol and budesonide and he is also on doxycycline. PHYSICAL EXAMINATION VITAL SIGNS: Temperature 98.3, pulse 70, respiration is 18, and pulse oximetry is not taken this morning. His WBC's are elevated at 15.2, and hemoglobin is reduced at 9.3. HEAD, EARS, NOSE, AND THROAT: Within normal limits. NECK: Supple with no jugular vein distentions. CHEST: Symmetrical. CARDIOVASCULAR: S1 and S2. No S3. PULMONARY: Diminished breath sounds bilaterally with scattered end-expiratory wheezes. GASTROINTESTINAL: Soft, nontender. No organomegaly. EXTREMITIES: Pitting edema bilaterally in legs. SKIN: Clear with no cyanosis and no skin rashes. NEUROLOGIC: No focal deficits. ASSESSMENT: This is a 67-year-old, morbidly obese man with dyspnea even at rest, off oxygen and especially on exertion. He is being worked up for exacerbation of chronic obstructive pulmonary disease. He likely has obstructive sleep apnea that needs to be addressed. In the meantime, we will continue with administration of inhalation treatments with Xopenex, budesonide and oral antibiotics. The patient is still sick, unstable and cannot be discharged to home in his current condition. Uli Marcelo MD
[2017-05-19] MEDS: diltiaZEM 240 mg/24 Hours CD Cap PO SCH (10:43)
[2017-05-19 11:08] LABS: ALB/GLOB RATIO 0.9 (1.1-1.8); ALKALINE PHOSPHATASE 78 U/L (38-126); ALT/SGPT 23 U/L (7-56); AST/SGOT 29 U/L (17-59); BILIRUBIN,TOTAL 0.5 mg/dL (0.2-1.3); BLOOD UREA NITROGEN 24 mg/dL (7-21); CALCIUM 8.9 mg/dL (8.4-10.5); CARBON DIOXIDE 23 mmol/L (21-33); CHLORIDE 102 mmol/L (98-107); GFR AFRICAN-AMERICAN > 60; GLUCOSE,RANDOM 147 mg/dL (70-110); POTASSIUM 4.1 mmol/L (3.6-5.0); SODIUM 136 mmol/L (132-148); TOTAL PROTEIN 6.8 g/dL (5.8-8.3)
--- NOTE | 2017-05-19 12:43 | HP ---
HISTORY OF PRESENT ILLNESS: The patient is a 67-year-old man with a past medical history of CAD, COPD, hyperlipidemia, and morbid obesity, who presents to the [facility] for evaluation of a several day history of dyspnea. Upon presentation to the emergency department, he was found to be in new onset AFib with RVR with the pulse in the 150s. After medical stabilization in the CCU, the patient was transferred to the telemetry blancas for continued management for new onset atrial fibrillation, pericardial effusion, and community acquired pneumonia. His hospital course was complicated by upper GI bleed while on heparin. The patient underwent an upper endoscopy, which demonstrated multiple gastric ulcers with adherent clot formation. As such, he was placed on Carafate and Protonix and recommendations were made to hold anticoagulation therapy for 3 to 4 weeks. He was subsequently transferred to the TCU for continued medical therapy and physical therapy. PAST MEDICAL HISTORY: As per HPI. Also type 2 diabetes mellitus. PAST SURGICAL HISTORY: As per HPI. Also gastric band, surgical repair of left tibia fibular fracture and tonsillectomy. ALLERGIES: NO KNOWN DRUG ALLERGIES. FAMILY HISTORY: Noncontributory. SOCIAL HISTORY: The patient reports a former 30-pack year smoking history and social alcohol use. He denies illicit drug abuse. MEDICATIONS: Aspirin 81 mg p.o. daily, Lipitor 40 mg p.o. daily, albuterol 2 puffs q. 4 to 6 hours p.r.n. wheeze, Cardizem CD 240 mg p.o. daily, digoxin 0.25 mg p.o. daily, Lopressor 50 mg p.o. b.i.d. REVIEW OF SYSTEMS: A 14-point review of systems is negative except as per HPI. PHYSICAL EXAMINATION: VITAL SIGNS: Temperature 98.3, pulse 70, blood pressure 114/63, respiratory rate 20, and oxygen saturation 97% on room air. GENERAL: An obese man sitting up in bed in no apparent distress. HEENT: PERRL. EOMI. No scleral icterus. Mild conjunctival pallor is noted. NECK: No JVD. No bruits. LUNGS: Decreased breath sounds in the bases. CARDIOVASCULAR: Irregularly irregular. No friction rub. ABDOMEN: Obese, normoactive bowel sounds. Soft, nontender, and nondistended. EXTREMITIES: No edema. Bilaterally upper extremities with mild edema and erythema at IV sites. NEUROLOGIC: Awake, alert and oriented x3. No focal motor deficits. LABORATORY DATA: WBC 15.2, hemoglobin 9.3, hematocrit 29 and platelets 433. Chemistry pending. ASSESSMENT: The patient is a 67-year-old man with past medical history of coronary artery disease, chronic obstructive pulmonary disease and hyperlipidemia, who presented with several day history of dyspnea and cough and he was initially admitted to the CCU for new onset atrial fibrillation with RVR and community acquired pneumonia who is now status post transfer to the TCU for continued medical management and physical therapy. PLAN: 1. Sepsis secondary to community acquired pneumonia, resolving. Input from Dr. Stokes and Dr. Rosas of infectious noted and appreciated. We will discuss with Dr. Rosas changing antibiotics to Levaquin p.o. 2. Upper GI bleed status post EGD, which demonstrated gastric ulcers with adherent clot. The patient denies any further overt blood loss and lab demonstrates favorably trending hemoglobin. Continue with Carafate 1 g p.o. q.i.d. and Protonix 40 mg p.o. b.i.d. The patient must refrain from NSAIDs, antiplatelet, or anticoagulation therapy for 3 to [address] Valverde. 3. Atrial fibrillation with RVR (new onset). Input from Dr. Durham noted and appreciated and given the EGD findings. We will hold anticoagulation for 3 to 4 weeks. The patient remains rate controlled. Continue diltiazem CD 240 mg p.o. daily, digoxin 0.25 mg p.o. daily, on Lopressor 50 p.o. b.i.d. 4. Pericardial effusion, stable as per TTE. 5. Leukocytosis, etiology unclear, but considered secondary to resolving pneumonia versus pericardial effusion. Labs demonstrate favorably white blood cell count. He remains afebrile. 6. CAD status post PCI. Continue Lipitor 10 mg p.o. daily and Lopressor 50 mg p.o. b.i.d. As above we will hold ASA for 3 to 4 weeks. 7. COPD. Input from Dr. Gill noted and greatly appreciated. Continue with current regimen. 8. Prophylaxis. Continue Protonix for GI prophylaxis and Venodyne for DVT prophylaxis. CODE STATUS: Full code. Trevor Simms MD [facility] # [id number]
[2017-05-19] MEDS: Digoxin 250 mcg (0.25 mg) Tab PO SCH (14:35)
[2017-05-20] MEDS: Levalbuterol 0.63 MG/3 ML Inhal Soln UD IH SCH ×4 (03:40→22:16)
[2017-05-20] MEDS: Sucralfate 1 gm/10 ml Oral Susp UD PO SCH ×4 (06:17→21:36)
[2017-05-20] MEDS: Pantoprazole 40 mg EC Tab PO SCH ×2 (06:18→17:19)
[2017-05-20] MEDS: Insulin Lispro (HUMAlog) HIGH Coverage SC SCH ×4 (06:51→22:07)
[2017-05-20 07:51] LABS: BASO # 0.05 K/mm3 (0.0-2.0); BASO % 0.3 % (0.0-3.0); EOS % 0.1 % (1.5-5.0); GRAN # 13.76 (1.4-6.5); GRAN % 75.8 % (50.0-68.0); HEMATOCRIT 31.5 % (42.0-52.0); LYMPH # 2.4 (1.2-3.4); LYMPH % 13.3 % (22.0-35.0); MEAN CELL VOLUME 82.9 fl (80.0-105.0); MEAN CORPUSCULAR HEMOGLOBIN 26.8 pg (25.0-35.0); MEAN CORPUSCULAR HGB CONC 32.4 g/dl (31.0-37.0); MONO # 1.9 (0.1-0.6); MONO % 10.5 % (1.0-6.0); RED CELL DISTRIBUTION WIDTH 14.1 % (11.5-14.5); WHITE BLOOD COUNT 18.1 10^3/ul (4.5-11.0)
[2017-05-20 07:58] LABS: ALB/GLOB RATIO 0.9 (1.1-1.8); ALKALINE PHOSPHATASE 96 U/L (38-126); ALT/SGPT 31 U/L (7-56); AST/SGOT 26 U/L (17-59); BILIRUBIN,TOTAL 0.6 mg/dL (0.2-1.3); BLOOD UREA NITROGEN 26 mg/dL (7-21); CALCIUM 9.4 mg/dL (8.4-10.5); CARBON DIOXIDE 23 mmol/L (21-33); CHLORIDE 100 mmol/L (98-107); GFR AFRICAN-AMERICAN > 60; GLUCOSE,RANDOM 205 mg/dL (70-110); POTASSIUM 3.9 mmol/L (3.6-5.0); SODIUM 136 mmol/L (132-148); TOTAL PROTEIN 7.3 g/dL (5.8-8.3)
[2017-05-20] MEDS: Budesonide 0.5 mg/2 ml Inhal Susp UD IH SCH ×2 (08:28→22:15)
--- NOTE | 2017-05-20 08:38 | PN ---
PULMONARY NOTE DATE: SUBJECTIVE: The patient appears comfortable this morning. He is not short of breath at rest. He is out of bed, sitting in the chair. OBJECTIVE: VITAL SIGNS: Temperature is 97.6, pulse 94, respirations 18/20, blood pressure 139/86. Oxygen saturation on nasal cannula is between 95-97%. HEENT: Normocephalic, atraumatic. No JVD. CARDIOVASCULAR: Positive S1, S2. No S3. LUNGS: Decreased breath sounds at the bases. Less rhonchi. No wheezing. EXTREMITIES: Less edema. No cyanosis, no clubbing. Calves are nontender to palpation. GASTROINTESTINAL: Abdomen is soft, nontender and nondistended. Bowel sounds are positive. SKIN: No acute rash. NEUROLOGIC: Limited at the present time. IMPRESSION: 1. Chronic obstructive pulmonary disease. 2. Acute bronchitis. 3. Rule out basilar pneumonia. 4. Coronary artery disease. 5. Rapid atrial fibrillation. 6. Pericardial effusion. PLAN: The patient appears comfortable this morning. He is not short of breath at rest. He is also less dyspneic on exertion. He states he is feeling much better overall. On physical exam, his bronchospasm is slowly resolving. In addition, the oxygen saturation is now between 95-97%. I will continue the current nebulizer treatments and inhaled steroids for now. The patient remains on antibiotic therapy. Inputs by infectious disease and GI are noted. Clinical status of the patient is significantly improved overall. The patient is now on the transitional unit, where he will participate with physical therapy. I will discuss the above with Dr. Simms. Derek Gill MD MTDGeeta
[2017-05-20] MEDS: diltiaZEM 240 mg/24 Hours CD Cap PO SCH (09:39)
--- NOTE | 2017-05-20 12:25 | PN ---
DATE: 05/20/2017 SUBJECTIVE: The patient was moved to room #320. He is doing better. He has no fevers. Uneventful night. PHYSICAL EXAMINATION: VITAL SIGNS: Temperature is 97, blood pressure is 130/80, respiratory rate of 20, heart rate of 98. HEENT: Examination of the HEENT is unremarkable. NECK: Supple. LUNGS: Decreased breath sounds. HEART: Normal S1 and S2. ABDOMEN: Soft and nontender. LABORATORY DATA: Examination reveals the patient's white count is 15,000 as today is up to 18,100; hemoglobin of 10, platelets of 465 with a 75% granulocytosis. Chemistry reveals a BUN of 26, creatinine of 0.7. Blood cultures no growth. Review of medications reveals the patient is on p.o. doxycycline. The patient's Doppler's of lower extremity is pending. ASSESSMENT AND PLAN: This is a 67-year-old morbidly obese male with chronic obstructive lung disease, coronary artery disease, who was admitted with shortness of breath and sepsis secondary to community acquired pneumonia, which is resolving, upper GI bleed, status post endoscopy which demonstrates gastric ulcers, atrial fibrillation, which is rapid ventricular response and pericardial effusion, and the patient does have chronic obstructive pulmonary disease and coronary artery disease status post percutaneous coronary intervention, currently with systemic inflammatory response syndrome with tachycardia and persistent leukocytosis. He may require hematology evaluation. The patient's white count has been persistently elevated since admission from 22,000, 26,000 down to 18,000 and 15,000. The patient did have a normal white count 08/18/2016 at 9.5 would may benefit from hematology evaluation. The patient also had a CAT scan of the abdomen and pelvis on the , which was noncontributory except for the lung findings and had a CAT scan of the chest during acute hospitalization, awaiting for the lower extremity Doppler's. The leukocytosis has not been explained. Nain Rosas MD
--- NOTE | 2017-05-20 13:00 | PN ---
DATE: DAILY PROGRESS NOTE SUBJECTIVE: The patient is seen and examined at bedside on the TCU, no acute events overnight. He remains afebrile and hemodynamically stable. OBJECTIVE: GENERAL: Obese man, sitting up in his bed, in no apparent distress. VITAL SIGNS: Temperature 97.6, pulse 94, blood pressure 145/81, respiratory rate 20, and oxygen saturation 95% on 2 L nasal cannula. HEENT: PERRL. EOMI. No scleral icterus. No conjunctival pallor. NECK: No JVD. No bruits. LUNGS: Decreased breath sounds at the bases. CARDIOVASCULAR: Irregularly irregular. No friction rub. ABDOMEN: Obese, normoactive bowel sounds, soft, nontender, and nondistended. EXTREMITIES: Bilateral upper extremity with mild edema and erythema at the IV sites. NEUROLOGIC: Awake, alert, and oriented x3. No focal motor deficits. LABORATORY DATA: Morning labs are pending. ASSESSMENT: The patient is a 67-year-old man with past medical history of coronary artery disease, chronic obstructive pulmonary disease, and hyperlipidemia who presented with a several day history of dyspnea and cough and who was initially admitted to the critical care unit for new onset atrial fibrillation with rapid ventricular rate and community-acquired pneumonia who is now status post transferred to the Transitional Care Unit for continued medical management and physical therapy. PLAN: 1. Sepsis secondary to community-acquired pneumonia, resolving. Input from Dr. Stokes and Dr. Rosas noted and appreciated. Continue with current antimicrobials. 2. Upper GI bleed, status post EGD, which demonstrated gastric ulcers with adherent clot. H and H remains stable with morning labs pending. Continue with Carafate 1 g p.o. q.i.d. and Protonix 40 mg p.o. b.i.d. The patient must refrain from NSAIDs and antiplatelet or anticoagulation therapy for 3 to 4 weeks. 3. Atrial fibrillation with RVR (new onset). Input from Dr. Durham noted and appreciated. Continue to hold anticoagulation for 3 to 4 weeks. The patient remains on diltiazem CD 240 mg p.o. daily, digoxin 0.25 mg p.o. daily, and Lopressor 50 mg p.o. b.i.d. 4. Pericardial effusion, stable as per transthoracic echocardiogram. 5. Leukocytosis etiology unclear, but consider secondary to resolving pneumonia versus resolving pericardial effusion. Morning labs are pending. 6. CAD, status post PCI. Continue with Lipitor 10 mg p.o. daily and Lopressor 50 mg p.o. b.i.d. As above, we will hold ASA for 3 to 4 weeks. 7. COPD. Input from Dr. Uli Marcelo appreciated.. Continue with current regimen. 8. Prophylaxis. Continue Protonix for GI prophylaxis and Venodynes for DVT prophylaxis. CODE STATUS: Full code. Trevor Simms MD
[2017-05-20] MEDS: Digoxin 250 mcg (0.25 mg) Tab PO SCH (14:13)
--- NOTE | 2017-05-20 14:30 | PN ---
DATE: 05/20/2017 SUBJECTIVE: The patient is sitting in chair, comfortable. He denies any melena, abdominal pain, shortness of breath. He denies any fevers or chills. OBJECTIVE: VITAL SIGNS: Reveal temperature of 97.6, blood pressure 145/81, heart rate of 94. HEENT: Reveal sclerae to be white. Conjunctivae pale. NECK: Supple. CHEST: Reveals scattered rhonchi. HEART: Exam reveals a regular rate and rhythm without murmur. ABDOMEN: Obese, soft, nontender. EXTREMITIES: Show trace to 1+ pedal edema. LABORATORY DATA: Reveal white blood cell count 18.1, hemoglobin 10.2. BUN 26, creatinine 0.7. AST, ALT, alk phos were all normal. IMPRESSION: A 67-year-old male, admitted to the hospital with generalized weakness, shortness of breath, elevated white blood cell count, sepsis, exacerbation of chronic obstructive pulmonary disease, new-onset atrial fibrillation, upper gastrointestinal bleeding secondary to multiple fundic ulcers and anemia. His blood count is trending upward with iron. RECOMMENDATIONS: 1. Continue pantoprazole 40 mg twice a day. 2. Continue Carafate suspension 1 g four times a day 3. Hold anticoagulation for several weeks. Mane Valverde MD
[2017-05-20] MEDS ORDERED: Oxycodone/Acetaminophen 5/325 mg Tab PO STA (19:53)
[2017-05-21] MEDS: Levalbuterol 0.63 MG/3 ML Inhal Soln UD IH SCH ×4 (02:22→21:05)
[2017-05-21] MEDS: Sucralfate 1 gm/10 ml Oral Susp UD PO SCH ×4 (05:51→21:51)
[2017-05-21] MEDS: Pantoprazole 40 mg EC Tab PO SCH ×2 (05:51→18:04)
[2017-05-21] MEDS: Insulin Lispro (HUMAlog) HIGH Coverage SC SCH ×4 (07:02→21:57)
[2017-05-21 07:15] LABS: BASO # 0.03 K/mm3 (0.0-2.0); BASO % 0.2 % (0.0-3.0); EOS # 0.2 (0.0-0.7); EOS % 1.4 % (1.5-5.0); GRAN # 12.44 (1.4-6.5); GRAN % 71.2 % (50.0-68.0); HEMATOCRIT 30.6 % (42.0-52.0); LYMPH # 2.6 (1.2-3.4); MEAN CELL VOLUME 84.1 fl (80.0-105.0); MEAN CORPUSCULAR HEMOGLOBIN 26.9 pg (25.0-35.0); MEAN PLATELET VOLUME 8.8 fl (7.0-11.0); MONO # 2.1 (0.1-0.6); MONO % 12.2 % (1.0-6.0); RED CELL DISTRIBUTION WIDTH 14.2 % (11.5-14.5); WHITE BLOOD COUNT 17.5 10^3/ul (4.5-11.0)
[2017-05-21] MEDS: Budesonide 0.5 mg/2 ml Inhal Susp UD IH SCH ×2 (07:35→21:05)
[2017-05-21 07:38] LABS: ALB/GLOB RATIO 0.9 (1.1-1.8); ALKALINE PHOSPHATASE 89 U/L (38-126); ALT/SGPT 20 U/L (7-56); AST/SGOT 29 U/L (17-59); BILIRUBIN,TOTAL 0.6 mg/dL (0.2-1.3); BLOOD UREA NITROGEN 22 mg/dL (7-21); CALCIUM 9.1 mg/dL (8.4-10.5); CARBON DIOXIDE 28 mmol/L (21-33); CHLORIDE 99 mmol/L (98-107); GFR AFRICAN-AMERICAN > 60; GLUCOSE,RANDOM 155 mg/dL (70-110); POTASSIUM 4.2 mmol/L (3.6-5.0); SODIUM 138 mmol/L (132-148); TOTAL PROTEIN 7.2 g/dL (5.8-8.3)
--- NOTE | 2017-05-21 09:09 | CON ---
DATE: 05/19/2017 The patient is in bed, seen earlier in room 313. CHIEF COMPLAINT: Weakness in several days. HISTORY OF PRESENT ILLNESS: This is a [id number]-male with past medical history significant for morbid obesity with a BMI of 41 with a chronic obstructive lung disease, emphysema, hyperlipidemia, peripheral edema, hypertension, diabetes with a history of cardiac catheterization in August with no known allergies, who is admitted and found to have infiltrates, which was treated with antibiotics, now transferred to transitional care, physical therapy, and was found to have a new-onset of atrial fibrillation, has had doxycycline and meropenem, today is day #8, infectious disease consultation reviewed. The patient states he is just having some loose stools, but no abdominal pain. No dysuria, frequency. PAST MEDICAL HISTORY: Significant for diabetes, hypertension, chronic obstructive lung disease, hyperlipidemia, emphysema, and the new onset of atrial fibrillation in acute care. PAST SURGICAL HISTORY: Significant for cardiac catheterization. ALLERGIES: THE PATIENT HAS NO KNOWN ALLERGIES. MEDICATIONS: REVIEWED. PHYSICAL EXAMINATION VITAL SIGNS: Temperature is 98, he is in bed, comfortable with a heart rate of 110, blood pressure is 120/70, respiratory rate of 18. HEENT: Unremarkable. NECK: Supple. LUNGS: Decreased breath sounds. HEART: Normal S1 and S2. ABDOMEN: Soft, nontender. LABORATORY DATA: Reveals a [place] in the [place] [address] [address]; [place] [address] and the differential from yesterday has 71% granulocytosis, 12 %to 17% lymphocytosis, no atypical cells. Coagulation reveals an INR of 1.1. The patient did have an elevated D-dimer and blood gases are noted. Chemistries reveals a BUN of 24, creatinine of 0.7. the patient's procalcitonin was negative x2. Urinalysis is noted. It is of worth that the patient came in with a creatinine of 1.9, which is resolved now with a creatinine of 0.7. Stool occult blood was positive. HIV is nonreactive. Urine Legionella is negative. Microbiology reveals blood cultures have no growth in 5 days and sputum culture, not available, unable to process. MRSA not detected. Dr. Uli Marcelo's progress note is reviewed and Dr. Trevor Simms's history and physical examination is noted and appreciated. Review of the EKG reveals a QTc of 438, another one at 389. Chest x-ray is noted, interstitial opacity. ASSESSMENT: He is a [id number]-male with morbid obesity, body mass index of 41, chronic obstructive lung disease, emphysema, hyperlipidemia, peripheral edema, hypertension, diabetes, new onset of atrial fibrillation, was admitted with severe sepsis with bilateral community-acquired pneumonia and new-onset atrial fibrillation, the patient with acute kidney injury, which is resolved, however, now has systemic however, now has systemic inflammatory response syndrome, persistent leukocytosis and tachycardia, etiology of which is not clear. We will continue the IV site. The patient has a mild IV site erythema. We will check on the stool for Clostridium difficile. He had some loose bowel movements and the patient did have Dopplers of the lower extremities in the acute care on the , 9 days ago, which was negative for deep venous thrombosis. We will order a stool Clostridium difficile and repeat Dopplers of the lower extremity to rule out deep venous thrombosis. The patient is non-anticoagulated, is bed-ridden and morbidly obese. We will continue the p.o. doxycycline for now. Follow the WBC, encourage ambulation, and we will make further recommendations. Nian Rosas MD
--- NOTE | 2017-05-21 09:15 | US ---
HISTORY: Leg pain and swelling. Evaluate for DVT PHYSICIAN(S): David Kearney MD. TECHNIQUE: Duplex sonography and color-flow Doppler with graded compression were used to evaluate the deep venous systems of both lower extremities. The exam is limited by body habitus and edema. The tibial veins are not well seen. FINDINGS: The visualized deep venous systems of both lower extremities are sonographically normal and compressible. Normal wave forms and augmentation are seen. There is no sonographic evidence for deep venous thrombosis in the visualized segments of both lower extremities. IMPRESSION: No sonographic evidence for deep venous thrombosis in the visualized segments of both lower extremities. Limited study.
--- NOTE | 2017-05-21 10:14 | PN ---
PULMONARY NOTE DATE: 05/21/2017 SUBJECTIVE: The patient appears comfortable this morning. He is not short of breath at rest. OBJECTIVE: VITAL SIGNS: Temperature is 97.6, pulse is 86, respirations are 18, and blood pressure is 135/73. Oxygen saturation on nasal cannula is 98%. HEENT: Normocephalic and atraumatic. NECK: No JVD. CARDIOVASCULAR: Positive S1 and S2. No S3 or gallop. LUNGS: Improved breath sounds at the bases. Much less rhonchi. No wheezing. EXTREMITIES: Less edema. No cyanosis. No clubbing. Calves are nontender to palpation. GASTROINTESTINAL: Abdomen is soft, nontender, and nondistended. Bowel sounds are positive. SKIN: No acute rash. NEUROLOGIC: Limited at the present time. IMPRESSION: 1. Chronic obstructive pulmonary disease. 2. Acute bronchitis. 3. Rule out basilar pneumonia. 4. Coronary artery disease. 5. Rapid atrial fibrillation. 6. Pericardial effusion. PLAN: The patient appears comfortable this morning. He is not short of breath at rest. He is also much less dyspneic on exertion. He does state that he is feeling much better overall. On physical exam, there is less bronchospasm noted. In addition, the oxygen saturation on nasal cannula is now 98%. I will continue the current nebulizer treatments and inhaled steroids for now. Input by Dr. Rosas (infectious disease) is noted. The patient remains on antibiotic therapy. His temperatures have fully resolved. Repeat a.m. labs are pending. Clinically, the patient continues to slowly improve. He is advised to use his incentive spirometer frequently, and participate with physical therapy. He agrees. I will discuss the above with Dr. Simms. Deerk Gill MD MTDD
[2017-05-21] MEDS: diltiaZEM 240 mg/24 Hours CD Cap PO SCH (11:23)
--- NOTE | 2017-05-21 11:50 | PN ---
SUBJECTIVE: The patient was seen and examined at bedside on the TCU. No acute events overnight. He remains afebrile and hemodynamically stable. Per discussion with the patient he is ambulating around his room and along the TCU and reports only minimal dyspnea with exertion. Otherwise he feels significantly improved throughout the weekend and offers no complaints. Of note , his leukocytosis persists and even worsened over the weekend, but the patient denies any localizing symptoms and demonstrated no signs of sepsis. PHYSICAL EXAMINATION: VITAL SIGNS: Temperature 97.6, pulse 86, blood pressure 135/73, respiratory rate 18, and oxygen saturation 98% on 2 L nasal cannula. GENERAL: Obese man sitting up in his chair, in no apparent distress. HEENT: PERRL. EOMI. No scleral icterus. No conjunctival pallor. NECK: No JVD. No bruits. LUNGS: Decreased breath sounds at the bases. CARDIOVASCULAR: Irregularly irregular. No friction rub. ABDOMEN: Obese, normal active bowel sounds, soft, nontender, and nondistended. EXTREMITIES: Bilateral upper extremity edema with erythema at the IV sites. NEUROLOGIC: Awake, alert, and oriented x3. No focal motor deficits. LABORATORY DATA: WBC 17.5 with 71% neutrophils, hemoglobin 9.8, hematocrit 31, and platelets 357. Chemistry reviewed and unremarkable. ASSESSMENT: The patient is a 67-year-old male with past medical history of CAD , COPD and hyperlipidemia who was initially admitted to the CCU with new onset AFib with RVR and community-acquired pneumonia who is now s/p transfer to the TCU for continued medical management and physical therapy. PLAN: 1. Sepsis secondary to community-acquired pneumonia, resolving. Input from Dr. Stokes and Dr. Rosas noted and appreciated. Continue with current antimicrobials. 2. Upper GI bleed s/p EGD which demonstrated gastric ulcers with adherent clot. H/H remains stable and slowly trending favorably. Continue with Carafate 1 g p.o. q.i.d. and Protonix 40 mg p.o. b.i.d. The patient must refrain from NSAIDs and antiplatelet or anticoagulation therapy for 3 to 4 weeks. 3. AFib (new onset). The patient remains rate controlled. Input from Dr. Durham noted and appreciated. Continue Diltiazem CD 240 mg p.o. daily, Digoxin 0.25 mg p.o. daily and Lopressor 50 mg p.o. b.i.d. As above, we will hold anticoagulation for 3 to 4 weeks. 4. Pericardial effusion, stable as per TTE. 5. Leukocytosis of unclear etiology. Consideration is given to resolving pneumonia versus resolving pericardial effusion however this will not explain the transient increases in the patient's leukocytosis over the weekend. We will consult Dr. Bhatti for further evaluation. 6. CAD, status post PCI. Continue Lipitor 10 mg p.o. daily, Lopressor 50 mg p.o. b.i.d. and as above we will hold ASA for 3 to 4 weeks. 7. COPD. Input from Dr. Gill noted and appreciated. Continue with current regimen. 8. Prophylaxis. Continue with Protonix for GI prophylaxis and Venodyne for DVT prophylaxis. CODE STATUS: Full code. Trevor Simms MD MTDD
[2017-05-21] MEDS: Digoxin 250 mcg (0.25 mg) Tab PO SCH (13:36)
--- NOTE | 2017-05-21 13:40 | CP.PCM.PN ---
Subjective - Date & Time of Evaluation Date of Evaluation: 05/21/17 Time of Evaluation: 11:30 - Subjective Subjective: Cough is improving, breathing is improved, has a little more energy, no fevers overnight. Objective - Vital Signs/Intake and Output Vital Signs (last 24 hours): Temp Pulse Resp BP Pulse Ox 97.6 F 76 18 126/75 98 05/21/17 06:00 05/21/17 08:35 05/21/17 06:00 05/21/17 08:35 05/21/17 06:00 - Medications Medications: Current Medications Atorvastatin Calcium (Lipitor) 10 mg PO DIN MARCIAL PRN Reason: Protocol Last Admin: 05/20/17 17:20 Dose: 10 mg Budesonide (Pulmicort Respules) 0.5 mg IH [id number] MARCIAL PRN Reason: Protocol Last Admin: 05/21/17 07:35 Dose: 0.5 mg Digoxin (Lanoxin) 0.25 mg PO 1400 MARCIAL PRN Reason: Protocol Last Admin: 05/20/17 14:13 Dose: 0.25 mg Diltiazem HCl (Cardizem Cd) 240 mg PO DAILY MARCIAL PRN Reason: Protocol Last Admin: 05/20/17 09:39 Dose: 240 mg Doxycycline Hyclate (Doryx) 100 mg PO Q12 MARCIAL PRN Reason: Protocol Last Admin: 05/20/17 21:37 Dose: 100 mg Insulin Human Lispro (Humalog High) 0 units SC ACHS MARCIAL PRN Reason: Protocol Last Admin: 05/21/17 07:02 Dose: 1 units Levalbuterol HCl (Xopenex) 0.63 mg IH [id number] MARCIAL PRN Reason: Protocol Last Admin: 05/21/17 07:35 Dose: 0.63 mg Levalbuterol HCl (Xopenex) 0.63 mg IH Q2 PRN; Protocol PRN Reason: sob Metoprolol Tartrate (Lopressor) 50 mg PO BRKDIN MARCIAL PRN Reason: Protocol Last Admin: 05/21/17 08:35 Dose: 50 mg Pantoprazole Sodium (Protonix Ec Tab) 40 mg PO 0600,1600 MARCIAL PRN Reason: Protocol Last Admin: 05/21/17 05:51 Dose: 40 mg Sucralfate (Carafate Oral Susp) 1 gm PO 0630,1130,1630,2200 MARCIAL PRN Reason: Protocol Last Admin: 05/21/17 05:51 Dose: 1 gm Zolpidem Tartrate (Ambien) 5 mg PO HS PRN PRN Reason: Insomnia Last Admin: 05/20/17 21:36 Dose: 5 mg - Labs Labs: 05/21/17 06:45 05/21/17 06:45 - Constitutional Appears: Non-toxic, No Acute Distress, Chronically Ill - Head Exam Head Exam: NORMAL INSPECTION - ENT Exam ENT Exam: Mucous Membranes Moist - Respiratory Exam Respiratory Exam: Decreased Breath Sounds - Cardiovascular Exam Cardiovascular Exam: +S1, +S2 - GI/Abdominal Exam GI & Abdominal Exam: Soft. absent: Tenderness Assessment and Plan - Assessment and Plan (Free Text) Plan: Assessment Severe sepsis with acute renal failure (resolved) due to bilateral lower lobe community-acquired pneumonia, clinically improved CAD S/P PCI new onset atrial fibrillation COPD dyslipidemia morbid obesity with BMI 41 HTN DM Plan completed course of Merrem; will continue PO Doxycycline for now; blood cx are negative; sputum cx show oropharyngeal contamination; stool for C. diff. is negative will continue to trend WBC count - continues to be elevated; follow up Heme/Onc evaluation will continue to monitor clinically
[2017-05-22] MEDS: Levalbuterol 0.63 MG/3 ML Inhal Soln UD IH SCH ×4 (03:00→20:13)
[2017-05-22] MEDS: Sucralfate 1 gm/10 ml Oral Susp UD PO SCH ×4 (05:50→21:09)
[2017-05-22] MEDS: Pantoprazole 40 mg EC Tab PO SCH ×2 (05:50→17:23)
[2017-05-22 06:25] LABS: BASO # 0.07 K/mm3 (0.0-2.0); BASO % 0.4 % (0.0-3.0); EOS # 0.2 (0.0-0.7); EOS % 1.1 % (1.5-5.0); GRAN # 12.44 (1.4-6.5); GRAN % 70.3 % (50.0-68.0); HEMATOCRIT 29.2 % (42.0-52.0); LYMPH # 2.9 (1.2-3.4); LYMPH % 16.4 % (22.0-35.0); MEAN CELL VOLUME 84.4 fl (80.0-105.0); MEAN CORPUSCULAR HEMOGLOBIN 27.2 pg (25.0-35.0); MEAN CORPUSCULAR HGB CONC 32.2 g/dl (31.0-37.0); MEAN PLATELET VOLUME 9.1 fl (7.0-11.0); MONO # 2.1 (0.1-0.6); MONO % 11.8 % (1.0-6.0); RED CELL DISTRIBUTION WIDTH 14.1 % (11.5-14.5); WHITE BLOOD COUNT 17.7 10^3/ul (4.5-11.0)
[2017-05-22] MEDS: Insulin Lispro (HUMAlog) HIGH Coverage SC SCH ×4 (06:37→22:45)
[2017-05-22] MEDS: Budesonide 0.5 mg/2 ml Inhal Susp UD IH SCH ×2 (07:43→20:13)
[2017-05-22 08:31] LABS: ALB/GLOB RATIO 0.9 (1.1-1.8); ALKALINE PHOSPHATASE 97 U/L (38-126); ALT/SGPT 24 U/L (7-56); AST/SGOT 43 U/L (17-59); BILIRUBIN,TOTAL 0.5 mg/dL (0.2-1.3); BLOOD UREA NITROGEN 19 mg/dL (7-21); CALCIUM 9.2 mg/dL (8.4-10.5); CARBON DIOXIDE 30 mmol/L (21-33); CHLORIDE 99 mmol/L (98-107); GFR AFRICAN-AMERICAN > 60; GLUCOSE,RANDOM 167 mg/dL (70-110); SODIUM 140 mmol/L (132-148); TOTAL PROTEIN 6.9 g/dL (5.8-8.3)
--- NOTE | 2017-05-22 08:34 | PN ---
PULMONARY NOTE DATE: 05/22/2017 SUBJECTIVE: The patient appears comfortable at rest. He is not short of breath this morning. PHYSICAL EXAMINATION: VITAL SIGNS: Temperature is 98.7, pulse 86, respirations currently 18, blood pressure 127/76. Oxygen saturation on nasal cannula is 97-100%. HEENT: Normocephalic, atraumatic. No JVD. CARDIOVASCULAR: Positive S1 and S2. No S3 gallop. LUNGS: Improved breath sounds at the bases. Very minimal/less rhonchi. No wheezing. EXTREMITIES: Less edema. No cyanosis, no clubbing. Calves are nontender to palpation. GI: Abdomen is soft, nontender and nondistended. Bowel sounds are positive SKIN: No acute rash. NEUROLOGIC: Exam limited at the present time. IMPRESSION 1. Chronic obstructive pulmonary disease. 2. Acute bronchitis. 3. Rule out basilar pneumonia. 4. Coronary artery disease. 5. Rapid atrial fibrillation. 6. Pericardial effusion. PLAN: The patient appears comfortable this morning. He is not short of breath at rest. He does state to much less dyspnea on exertion. The patient states that he is feeling much better overall. I did discuss the case with the night nurse at length. The night nurse stated that the patient is doing well overall, and confirms that he is less dyspneic on exertion. On physical exam, his bronchospasm continues to slowly resolve. In addition, the alveolar arterial gradient also continues to resolve. Oxygen saturation on nasal cannula is now 97-100%. I will continue the current nebulizer treatments and inhaled steroids for now. The patient is also reminded to use his incentive spirometer, and be out of bed as much as possible. The patient remains on antibiotic therapy - as per infectious disease. Input by Dr. Stokes is noted. Hematology evaluation has also been ordered-- for the leukocytosis. The leukocytosis is significantly improved/ decreased - compared to the initial values. However, the white count remains mildly elevated. Clinical status of the patient is significantly improved - compared to the initial presentation. However, again, the overall status/prognosis for this patient does remain guarded. I will discuss the above with Dr. Simms this morning. Derek Gill MD YOSEPH
--- NOTE | 2017-05-22 09:37 | PN ---
SUBJECTIVE: The patient was seen and examined at bedside on the TCU. No acute events overnight. He remains afebrile and hemodynamically stable. The patient reports that he has been ambulating around the TCU with his family members and has also been participating in physical therapy yesterday. He does endorse mild exertional dyspnea but states it has significantly improved since admission and otherwise offers no complaints. Of note Dr. Bhatti of hematology/ oncology was consulted to evaluate the patient for persistent leukocytosis and the evaluation is still pending. OBJECTIVE: VITAL SIGNS: Temperature 98.7, pulse 86, blood pressure 127/76, respiratory rate 22 and oxygen saturation is 97% on room air. GENERAL: Obese man, sitting up in his chair, in no apparent distress. HEENT: PERRL. EOMI. No scleral icterus. No conjunctival pallor. NECK: No JVD. No bruits. LUNGS: Decreased breath sounds at the bases. CARDIOVASCULAR: Irregularly irregular. No friction rub. ABDOMEN: Obese, normoactive bowel sounds, soft, nontender, nondistended. EXTREMITIES: Trace lower extremity edema bilaterally. Bilateral upper extremity edema with erythema at the prior IV sites. NEUROLOGIC: Awake, alert and oriented x3. No focal motor deficits. LABORATORY DATA: WBC 17.7 with 70% neutrophils, hemoglobin 9.4, hematocrit 29, platelets 348. Chemistry reviewed and unremarkable. ASSESSMENT: The patient is a 67-year-old man with past medical history of CAD, COPD and hyperlipidemia who was initially admitted to the CCU with new-onset AFib with RVR and community-acquired pneumonia who is now status post transfer to the TCU for continued medical management and physical therapy. PLAN: 1. Sepsis secondary to community-acquired pneumonia, resolving. Input from Dr. Stokes and Dr. Rosas noted and appreciated. The patient remains on Doxycycline 100 mg p.o. q. 12 hours. 2. Upper GI bleed s/p EGD which demonstrated gastric ulcers with adherent clot. H/H remains stable. Continue with Carafate 1 g p.o. q.i.d. and Protonix 40 mg p.o. b.i.d. The patient must refrain from NSAIDs and antiplatelet or anticoagulation therapy for 3-4 weeks. 3. AFib (new onset). The patient remains rate controlled. Input from cardiology noted and greatly appreciated. Continue diltiazem CD 240 mg p.o. daily, Digoxin 0.25 mg p.o. daily and Lopressor 50 mg p.o. b.i.d. As above, we will hold anticoagulation for 3 to 4 weeks. 4. Pericardial effusion, stable as per TTE. We will discuss with Dr. Valverde the possibility of using a low-dose NSAID given the patient's underlying pericardial effusion as this maybe contributing to his persistent leucocytosis; however, if given his recent GI bleed secondary to gastric ulcers, this is not feasible; then, we will defer treatment. 5. Leucocytosis of unclear etiology; however, consideration is given to resolving pneumonia versus underlying pericardial effusion. Hematology oncology evaluation is pending with Dr. Bhatti. 6. CAD, status post PCI. Continue Lipitor 10 mg p.o. daily, Lopressor 50 mg p.o. b.i.d. and as above, we will hold ASA for 3 to 4 weeks. 7. COPD. Input from Dr. Gill noted and appreciated. Continue with current medication. 8. Prophylaxis: Continue with Protonix for GI prophylaxis and Venodynes for DVT prophylaxis. CODE STATUS: Full code. Trevor Simms MD MTDD
[2017-05-22] MEDS: diltiaZEM 240 mg/24 Hours CD Cap PO SCH (10:28)
--- NOTE | 2017-05-22 13:21 | PN ---
SUBJECTIVE: The patient seen earlier this morning, in no acute distress, nontoxic, no fevers or chills, no nausea or vomiting. OBJECTIVE: VITAL SIGNS: Temperature is 98, blood pressure is 120/70, respiratory rate 20, heart rate of 82. HEENT: Unremarkable. NECK: Supple. LUNGS: Decreased breath sounds. HEART: Normal S1 and S2. ABDOMEN: Soft. LABORATORY: Examination reveals white count of 17,000, hemoglobin of 9, platelets of 348. Chemistries reveal BUN of 19 and creatinine 0.7. Toxicology noted and microbiology, antigen and toxin are negative. ASSESSMENT AND PLAN: This is a 67-year-old male with severe sepsis, acute renal failure which has resolved with bilateral lower lobe community-acquired pneumonia which has improved, in a patient with coronary artery disease, he has a history of percutaneous coronary intervention and new onset of atrial fibrillation, chronic obstructive lung disease, dyslipidemia, morbid obesity with body mass index of 41, hypertension, diabetes, currently on doxycycline, persistent leukocytosis and hematology/oncology evaluation pending. Dr. Trevor Simms's note from this morning is reviewed. The patient did have a CAR scan of the abdomen on initial admission in the acute care which was negative. We will discuss with Dr. Trevor Simms. Dr. Nolasco's note is also reviewed. I am still concerned about the persistent leukocytosis. The patient also had a CAT scan of the chest, on p.o. doxycycline. Nain Rosas MD
[2017-05-22] MEDS: Digoxin 250 mcg (0.25 mg) Tab PO SCH (14:25)
[2017-05-22 14:27] VITALS: PULSE 72
--- NOTE | 2017-05-22 20:42 | CON ---
DATE: REASON FOR CONSULT: Persistent leukocytosis. HISTORY OF PRESENT ILLNESS: The patient is a 67-year-old male with past medical history significant for multiple medical problems including coronary artery disease, COPD, hyperlipidemia, morbid obesity who initially presented to the emergency room with complaints of dyspnea and then was found to have new-onset atrial fibrillation with rapid ventricular rate as well as community-acquired pneumonia. He was initially put on anticoagulation, but subsequently developed GI bleed and he is off all anticoagulation at this point. Consult is now called for a persistent leukocytosis despite antibiotics and treatment for his GI bleed. He denies any prior elevation of WBC, denies any chronic steroid use. No recent weight changes, no fevers, no night sweats, no other complaints. He states he has been up to date on all his screening except for having a colonoscopy done. Denies any other complaints. PAST MEDICAL HISTORY: As above; known type 2 diabetes, coronary artery disease, COPD, hyperlipidemia, morbid obesity and new-onset atrial fibrillation. ALLERGIES: NO KNOWN DRUG ALLERGIES. SOCIAL HISTORY: Positive for smoking in the past, over 30 years of smoking. Only uses alcohol socially. Denies any illicit drug use. FAMILY HISTORY: Also noncontributory. MEDICATIONS AT HOME: Include aspirin, Lipitor, albuterol, Cardizem, digoxin and Lopressor. REVIEW OF SYSTEMS: As per the HPI. PHYSICAL EXAMINATION: VITAL SIGNS: Reveal a temperature of 98.7, respiratory rate of 22 and a pulse of 86, BP of 124/76. GENERAL: The patient is an elderly, morbidly obese male, sitting up in bed, in no acute distress. HEENT: Head and neck; normocephalic and atraumatic. Eyes; pupils equal, round and reactive to light and accommodation. Extraocular muscles are intact. There is pallor. No icterus is noted. NECK: Supple with no adenopathy. No JVD. No thyromegaly. LUNGS: Decreased breath sounds bilaterally at the bases. Also has a poor effort. CARDIOVASCULAR: S1 and S2 is heard. ABDOMEN: Positive bowel sounds. Soft, nontender, nondistended. No organomegaly is palpated. EXTREMITIES: There is bilateral lower extremity edema. LABORATORY DATA: Reveal a white count of 17.7, hemoglobin 9.4 and hematocrit of 29.2, MCV of 84.4, platelet count of 348. White count diff does not show any abnormality. He does have granulocytosis, a few monocytes are seen, but the patient also recently underwent infectious complications. His chemistries are within normal limits. He did have iron studies; iron studies are from several years ago when his iron stores were normal. Folate is noted to be low from many years ago. B12 level was within normal several years ago. ASSESSMENT AND PLAN: Elderly male with multiple medical problems, now complicated by community-acquired pneumonia as well as atrial fibrillation, subsequent gastrointestinal bleed. Persistent leukocytosis is likely reactive in this patient as his peripheral blood smears reviewed and there is no anomaly noted. There is no blast. There is no immature white cell noted on the peripheral smear. He does have anemia, which is likely consistent with iron deficiency. We will run iron studies at this time point, B12 and folate as well. Check blood for peripheral blood flow cytometry. Also we will run a BCR-ABL to make sure the patient does not have an underlying myeloproliferative disorder. He is stable and his white count has been stable. There is no current indication to hold his discharge. The patient and sister understand all the findings and they also understand that he will be followed up as an outpatient for the results of the blood work ordered today. If there is need for further treatment it would be done as an outpatient. Thank you for the consult. Mariella Bhatti MD
[2017-05-23] MEDS: Levalbuterol 0.63 MG/3 ML Inhal Soln UD IH SCH ×2 (01:44→07:28)
[2017-05-23] MEDS: Sucralfate 1 gm/10 ml Oral Susp UD PO SCH (05:31)
[2017-05-23] MEDS: Pantoprazole 40 mg EC Tab PO SCH (05:32)
[2017-05-23 05:56] LABS: BASO # 0.04 K/mm3 (0.0-2.0); BASO % 0.3 % (0.0-3.0); EOS # 0.4 (0.0-0.7); EOS % 2.7 % (1.5-5.0); GRAN % 61.4 % (50.0-68.0); HEMATOCRIT 28.2 % (42.0-52.0); LYMPH # 3.4 (1.2-3.4); LYMPH % 25.3 % (22.0-35.0); MEAN CELL VOLUME 84.7 fl (80.0-105.0); MEAN CORPUSCULAR HGB CONC 31.9 g/dl (31.0-37.0); MEAN PLATELET VOLUME 8.9 fl (7.0-11.0); MONO # 1.4 (0.1-0.6); MONO % 10.3 % (1.0-6.0); PLATELET COUNT 306 10^3/uL (120.0-450.0); RETIC% 1.04 % (0.5-1.5); WHITE BLOOD COUNT 13.3 10^3/ul (4.5-11.0)
[2017-05-23 06:05] VITALS: BP 120/68; PULSE 85; RESP 20; TEMP 97.4; O2SAT 98
[2017-05-23 06:26] LABS: ALB/GLOB RATIO 0.8 (1.1-1.8); ALKALINE PHOSPHATASE 82 U/L (38-126); ALT/SGPT 28 U/L (7-56); AST/SGOT 29 U/L (17-59); BILIRUBIN,TOTAL 0.5 mg/dL (0.2-1.3); BLOOD UREA NITROGEN 23 mg/dL (7-21); CALCIUM 9.3 mg/dL (8.4-10.5); CARBON DIOXIDE 33 mmol/L (21-33); CHLORIDE 99 mmol/L (95-110); GFR AFRICAN-AMERICAN > 60; GLUCOSE,RANDOM 182 mg/dL (70-110); SODIUM 140 mmol/L (132-148); TOTAL PROTEIN 6.6 g/dL (5.8-8.3)
[2017-05-23 06:28] LABS: IRON 26 ug/dL (45-180)
[2017-05-23] MEDS: Insulin Lispro (HUMAlog) HIGH Coverage SC SCH (07:12)
[2017-05-23] MEDS: Budesonide 0.5 mg/2 ml Inhal Susp UD IH SCH (07:27)
--- NOTE | 2017-05-23 08:03 | PN ---
DATE: 05/23/2017 SUBJECTIVE: The patient appears very comfortable at rest. He is not short of breath. PHYSICAL EXAMINATION: VITAL SIGNS: Temperature is 97.4, pulse 85, respirations 18, blood pressure 120/68. Oxygen saturation on nasal cannula is 98%. HEENT: Normocephalic, atraumatic. No JVD. CARDIOVASCULAR: Positive S1, S2. No S3. LUNGS: Improved breath sounds at the bases. No rhonchi or wheezing this morning. EXTREMITIES: Mild edema. No cyanosis, no clubbing. Calves are nontender to palpation. GI: Abdomen is soft, nontender and nondistended. Bowel sounds are positive. SKIN: No acute rash. NEUROLOGIC: Exam limited at the present time. IMPRESSION 1. Chronic obstructive pulmonary disease. 2. Acute bronchitis. 3. Rule out basilar pneumonia. 4. Coronary artery disease. 5. Rapid atrial fibrillation. 6. Pericardial effusion. PLAN: The patient appears very comfortable this morning. He is not short of breath at rest. He is much less dyspneic on exertion. He states to feeling much, much better overall. I did discuss the case with the night nurse at length. The night nurse stated that the patient is doing very well overall. On physical exam, his bronchospasm has primarily resolved. In addition, the oxygen saturation on nasal cannula is now 98%. I will continue the current nebulizer treatments and inhaled steroids for now. The patient remains on antibiotic therapy. There are no temperatures noted. The leukocytosis is significantly decreased. I did have a long talk with Dr. Simms yesterday morning. We both thought that the patient's condition might be inflammatory in nature, and to try a small dose of a nonsteroidal, but check with Dr. Valverde (Gastroenterology) before initiating the treatment. The patient was started on Indocin yesterday. Again, as above, the white count is significantly reduced this morning. Clinical status of the patient is significantly improved overall. He is for discharge in the near future. I will discuss the above with Dr. Simms this morning. Derek Gill MD [facility]
--- NOTE | 2017-05-23 11:30 | PN ---
SUBJECTIVE: The patient is seen and examined at bedside on the TCU. No acute events overnight. He remains afebrile and hemodynamically stable. The patient was evaluated by Dr. Bhatti of hematology/oncology yesterday and multiple labs were sent for workup of his persistent leukocytosis. The patient was also started on a low-dose antiinflammatory consisting of indomethacin 25 mg p.o. b.i.d. after conferring with Dr. Valverde of gastroenterology. This morning's labs demonstrate favorably trending leukocytosis. The patient overall states he feels well, offers no complaints, and he is looking forward to going home. OBJECTIVE: VITAL SIGNS: Temperature 97.4, pulse 85, blood pressure 120/68, respiratory rate 20, and oxygen saturation is 98% on 2 L nasal cannula. GENERAL: Obese man, sitting up in his chair, in no apparent distress. HEENT: PERRL. EOMI. No scleral icterus. No conjunctival pallor. NECK: No JVD. No bruits. LUNGS: Decreased breath sounds at the bases, otherwise clear to auscultation. CARDIOVASCULAR: Irregularly irregular. No friction rub. ABDOMEN: Obese, normoactive bowel sounds, soft, nontender, nondistended. EXTREMITIES: Trace bilateral lower extremity edema. NEUROLOGIC: Awake, alert, and oriented x3. No focal motor deficits. LABORATORY DATA: WBC 13.3 with 61% neutrophils, hemoglobin 9, hematocrit 28, platelets 306. Chemistry reviewed and unremarkable. ASSESSMENT: The patient is a 67-year-old man with past medical history of coronary artery disease, chronic obstructive pulmonary disease and hyperlipidemia, who was initially admitted to the CCU with new-onset atrial fibrillation with rapid ventricular response, community-acquired pneumonia and pericardial effusion, who is now status post transfer to the TCU and pending discharge to home. PLAN: 1. Sepsis, secondary to community-acquired pneumonia, resolving. Input from Dr. Stokes and Dr. Rosas noted and appreciated, and the patient has completed a course of antibiotics. He remains afebrile and hemodynamically stable. 2. Upper gastrointestinal bleed, status post EGD which demonstrated gastric ulcers with adherent clot. H and H remained stable. Continue with Carafate 1 g p.o. q.i.d. and Protonix 40 mg p.o. b.i.d. We will hold anticoagulation for 3 to 4 weeks given his recent upper gastrointestinal bleed. 3. Atrial fibrillation (new onset). The patient remains rate controlled. Continue with diltiazem CD 240 mg p.o. daily, digoxin 0.25 mg p.o. daily, and Lopressor 50 mg p.o. b.i.d. As above, we will hold anticoagulation for 3 to 4 weeks. 4. Pericardial effusion, stable as per TTE. As above after conferring with Dr. Valverde, the patient was started on indomethacin 25 mg p.o. b.i.d., and labs demonstrate favorably trending leukocytosis. The patient remains otherwise hemodynamically stable. 5. Leukocytosis of unclear etiology, however, consider secondary to underlying pericardial effusion. Input from Dr. Bhatti noted and appreciated. As above, leukocytosis is trending favorably since initiating an NSAID. 6. CAD, status post PCI. Continue with Lipitor 10 mg p.o. daily, Lopressor 50 mg p.o. b.i.d., and as above, we will hold ASA for 3 to 4 weeks. 7. Chronic obstructive pulmonary disease. Input from Dr. Gill noted and appreciated. Continue with current medications. 8. Prophylaxis: Continue with Protonix for GI prophylaxis and Venodynes for DVT prophylaxis. 9. Disposition: The patient will be discharged to home today. CODE STATUS: Full code. Trevor Simms MD [facility]
--- NOTE | 2017-05-23 12:21 | PN ---
DATE: 05/23/2017 SUBJECTIVE: The patient is sitting in a chair, comfortable. He denies any melena or overt GI bleeding. The patient was started on Indocin 25 mg twice a day yesterday for possible viral-induced pericarditis. He was recently diagnosed to have bleeding gastric ulcers. He has been treated with Protonix 40 mg twice a day and Carafate suspension without any evidence of recurrent bleeding. OBJECTIVE: VITAL SIGNS: Reveal temperature of 97.4, blood pressure 120/68, and heart rate of 85. ABDOMEN: Soft, nontender. LABORATORY DATA: This morning, his hemoglobin is 9.0, it is stable. Chemistries reveal BUN 23 and creatinine 0.8. IMPRESSION: A 67-year-old male status post recent upper gastrointestinal bleed from gastric ulcers, which has been treated aggressively with Carafate 1 g four times a day and pantoprazole 40 mg twice a day. The patient has had persistent leukocytosis and concern was that the patient has viral pericarditis with pericardial effusion leading to persistent elevated white blood cell count. He was started on Indocin 25 mg twice a day. He is at risk for gastrointestinal bleeding, but the benefits of treatment with Indocin, I think at this point, outweighs the possible risks; he is maximally treated for ulcer disease with Carafate suspension and Protonix. RECOMMENDATIONS: 1: Continue treatment with above medications. 2. Close monitoring of CBC. 3. I have asked the patient to call me if he develops any further melena or worsening weakness. Mane Valverde MD
[2017-05-23 12:58] LABS: FOLATE 7.2 ng/mL
--- NOTE | 2017-05-23 17:07 | PN ---
SUBJECTIVE: The patient is seen earlier this morning. He is awake and alert, doing well. No nausea. No vomiting. PHYSICAL EXAMINATION: VITAL SIGNS: Temperature is 97, blood pressure is 120/60, respiratory rate of 16. HEENT: Unremarkable. NECK: Supple. LUNGS: Decreased breath sounds. HEART: Normal S1 and S2. ABDOMEN: Soft. LABORATORY DATA: Reveals the white count is down to 13,300, hemoglobin of 9. The patient's microbiology is noted. The stool for C. diff is reported to be negative. Negative antigen. Negative toxin. ASSESSMENT AND PLAN: This is a 67-year-old morbidly male with a body mass index of 43 who is admitted to the acute care with severe sepsis, acute kidney injury, which is resolving; bilateral lower lobe community-acquired pneumonia in a patient with coronary artery disease, history of percutaneous coronary intervention and new onset of atrial fibrillation, chronic obstructive lung disease, dyslipidemia, morbid obesity with body mass index of 41, hypertension, diabetes, currently on doxycycline, persistent leukocytosis and the patient will follow up with hematology as an outpatient regarding the leukocytosis. Nain Rosas MD
== END 2017-05-23 10:15 | disposition home or self-care (01) | DRG 871 ==
LOC: TRCU 14:00
PROVIDERS: ADMIT Internal Medicine; ATTEND Internal Medicine
PROC: F08Z1FZ Dressing Techniques Treatment using Assistive, Adaptive, Supportive or Protective Equipment (ICD-10-PCS; 2017-05-19)
PROC: F07Z9FZ Gait Training/Functional Ambulation Treatment using Assistive, Adaptive, Supportive or Protective Equipment (ICD-10-PCS; principal; 2017-05-21)
PROC: F07L6YZ Therapeutic Exercise Treatment of Musculoskeletal System - Lower Back / Lower Extremity using Other Equipment (ICD-10-PCS; 2017-05-21)
PROC: F07Z8FZ Transfer Training Treatment using Assistive, Adaptive, Supportive or Protective Equipment (ICD-10-PCS; 2017-05-22)
DX: A41.9 Sepsis, unspecified organism (principal); J18.9 Pneumonia, unspecified organism; J44.1 Chronic obstructive pulmonary disease with (acute) exacerbation; I31.3 Pericardial effusion (noninflammatory); K25.4 Chronic or unspecified gastric ulcer with hemorrhage; J44.0 Chronic obstructive pulmonary disease with (acute) lower respiratory infection; Z68.41 Body mass index [BMI] 40.0-44.9, adult; J20.9 Acute bronchitis, unspecified; I48.91 Unspecified atrial fibrillation; E66.01 Morbid (severe) obesity due to excess calories; I25.10 Atherosclerotic heart disease of native coronary artery without angina pectoris; I10 Essential (primary) hypertension; E78.5 Hyperlipidemia, unspecified; E11.9 Type 2 diabetes mellitus without complications; G47.33 Obstructive sleep apnea (adult) (pediatric); D50.9 Iron deficiency anemia, unspecified; Z87.891 Personal history of nicotine dependence; Z98.61 Coronary angioplasty status; Z74.01 Bed confinement status

== ENCOUNTER 2018-09-11 07:30 | Day surgery (SDC) | payer MEDICARE, BC ==
[2018-09-09 17:07] VITALS: BMI 37.9
[2018-09-11 07:51] VITALS: RESP 18; TEMP 98.7
[2018-09-11] MEDS ORDERED: Sodium Chloride 0.9% 1,000 ML IV SCH (08:45)
[2018-09-11] MEDS ORDERED: Propofol 10 mg/ml Inj (20 ML) ONE (09:00)
[2018-09-11 10:11] VITALS: PULSE 86
[2018-09-11 10:52] VITALS: BP 126/61; O2SAT 97
== END 2018-09-11 11:30 | disposition home or self-care (01) ==
LOC: ENDO 07:30
PROVIDERS: ATTEND Specialist
DX: Z12.11 Encounter for screening for malignant neoplasm of colon (principal); D12.3 Benign neoplasm of transverse colon; D12.0 Benign neoplasm of cecum; D12.2 Benign neoplasm of ascending colon; K63.5 Polyp of colon; K57.30 Diverticulosis of large intestine without perforation or abscess without bleeding; K64.8 Other hemorrhoids
CPT/HCPCS: 45380; 45381; 45385; 88305; J2001; J2704; J7030; J7040